=== PATIENT | male | born 1945 | race Caucasian/White ===

== ENCOUNTER 2020-01-04 17:41 | Emergency (ER) | payer MEDICARE, SELFPAY ==
[2020-01-04 17:51] VITALS: BP 158/60; PULSE 56; RESP 18; TEMP 36.9; O2SAT 99
--- NOTE | 2020-01-04 18:01 | ED.DIZZY ---
HPI - Dizziness General Chief Complaint: Dizziness Stated Complaint: dizziness,weakness Time Seen by Provider: 01/04/20 18:01 Source: patient Mode of arrival: ambulatory Limitations: no limitations History of Present Illness HPI Narrative: Jerry Chappell is a 74 yo male with PMH of a fib and high cholesterol, here became dizzy while cooking dinner. States he has problems staying hydrated as he does not require. Patient is on a diuretic as well as verapamil has appoint with kidney specialist because his kidneys function has decreased Related Data Home Medications Medication Instructions Recorded Confirmed vit C 250 mg-E 200 unit-zinc 40 1 tablet PO BID 08/22/19 01/04/20 mg-copper 1 dx-hojayl-fkkhhm capsule Allergies Allergy/AdvReac Type Severity Reaction Status Date / Time No Known Allergies Allergy Unverified 08/22/19 13:12 Review of Systems Review of Systems: Narrative: CONSTITUTIONAL: Denies fever, chills, sweats. EYES: Denies visual changes, redness, discharge. ENT: Denies rhinorrhea, congestion, sore throat, otalgia. CARDIOVASCULAR: Denies chest pain, palpitations, edema. RESPIRATORY: Denies dyspnea, wheezing, cough GASTROINTESTINAL: Denies abdominal pain, nausea, vomiting, diarrhea. GENITOURINARY: Denies dysuria, hematuria, abnormal discharge SKIN: Denies rash or itching. NEUROLOGIC: Denies numbness, or focal weakness. Occasional dizziness PSYCHIATRIC: Denies anxiety or depression. 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 There is no relevant family history pertinent to the presenting complaint. Exam Narrative: Exam Narrative: GENERAL: This is a well-nourished, well-developed patient, in no distress. HEAD: normocephalic, atraumatic. EYES: PERRL. Sclera clear/white. Vision is grossly intact. EARS: External ears normal, Hearing grossly intact. NOSE: External nose normal without nasal discharge, nares without redness, no rhinorrhea. THROAT: Mucous membranes moist, NECK: Neck supple, CARDIOVASCULAR: Regular rate and rhythm without murmurs, gallops, or rubs. RESPIRATORY: Clear to auscultation. Breath sounds equal bilaterally. No wheezes, rales, or rhonchi. GASTROINTESTINAL: Abdomen soft, SKIN: warm, intact with no suspicious lesions or rash, good texture and turgor. NEURO: awake, alert, and oriented to person, place and time. There were no obvious focal neurologic abnormalities. Steady gait EXTREMITIES: Normal range of motion. BACK: Nontender without deformity Course Course Emergency Course: Discussed quantity of water that he should be drinking a day and methods for increasing oral intake. Patient is also on diuretic which causes dehydration Follow-up with PCP; if dizziness continues will go to ER for reevaluation Vital Signs Vital signs: Vital Signs Temperature 98.5 F 01/04/20 17:51 Pulse Rate 56 L 01/03
== END 2020-01-04 18:15 | disposition home or self-care (01) ==
PROVIDERS: Emergency Provider Nurse Practitioner
DX: E86.0 Dehydration (principal); I48.91 Unspecified atrial fibrillation; E78.00 Pure hypercholesterolemia, unspecified; I12.9 Hypertensive chronic kidney disease with stage 1 through stage 4 chronic kidney disease, or unspecified chronic kidney disease; N18.3 Chronic kidney disease, stage 3 (moderate); K21.9 Gastro-esophageal reflux disease without esophagitis; E78.5 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, unspecified; G47.33 Obstructive sleep apnea (adult) (pediatric); E55.9 Vitamin D deficiency, unspecified
CPT/HCPCS: 99211; G0463

== ENCOUNTER 2020-01-17 22:32 | Inpatient (IN) | payer MEDICARE, SELFPAY ==
--- NOTE | ~2020-01-17 | XR_ITS ---
EXAMINATION: XR chest 1V portable DATE: 01/22/2020 14:43 INDICATION: Status post pacemaker insertion TECHNIQUE: frontal view of the chest was obtained. COMPARISON: Chest radiograph dated 01/17/2020 FINDINGS: Interval placement of a dual-lead cardiac pacemaker with pacemaker device projects over the lateral l eft upper lung zone and with distal lead tips project over the expected locations of the right atrial appendage and right ventricular outflow tract. The lungs remain clear with no focal airspace opaciti es, pulmonary edema, pleural effusion or pneumothorax. The cardiomediastinal silhouette is normal. IMPRESSION: 1. Dual-lead cardiac pacemaker with lead tips at the right atrial appendage and right ventricular out flow tract. 2. No pneumothorax or other acute cardiopulmonary disease. Reviewed, dictated and finalized at location A. IMPRESSION: 1. Dual-lead cardiac pacemaker with lead tips at the right atrial appendage and right ventricular outflow tract. 2. No pneumothorax or other acute cardiopulmonary disease.
--- NOTE | ~2020-01-17 | CT_ITS ---
EXAMINATION: CTA brain carotid DATE: 01/18/2020 16:45 INDICATION: Dizziness. TECHNIQUE: Computed tomographic angiography (CTA) of the head was performed without and with 100 mL O mnipaque-350 intravenous contrast. CTA of the neck was performed with intravenous contrast. Automated exposure control and iterative reconstruction technique were employed. The dose-length product was 1 625.48 mGy-cm. Maximum intensity projection and volume rendered 3D-reconstructions were created by breann e technologist on a separate workstation. COMPARISON: Brain MRI 01/18/2020, head CT 01/16 620 FINDINGS: HEAD CTA: There is an old infarct in left frontotemporoparietal region. There is no intracranial hemo rrhage, acute infarction, or abnormal intracranial mass lesion. The ventricles are normal in size. Th ere are likely changes of ocular lens replacement surgeries. The paranasal sinuses are clear. The mas toid air cells are normal. Right vertebral artery is dominant. There is mild stenosis of distal right vertebral artery. There is no significant stenosis of basilar artery or the posterior cerebral arter ies. There is mild stenosis of intracranial internal carotid internal carotid artery. There is total occlusion of intracranial left internal carotid artery. There is reconstitution of flow in left inter nal carotid artery in the ophthalmic segment. There is no significant stenosis of the anterior or mid dle cerebral arteries. Anterior communicating artery is normal. The posterior communicating arteries are normal. There is no aneurysm. NECK CTA: There are changes of left hemithyroidectomy. There is an 8 mm nodule in right thyroid lobe, likely not clinically significant. There are no pathologically enlarged lymph nodes. There is mild s tenosis of right vertebral artery. There is plaque in proximal right internal carotid artery. There i s 51% stenosis of the proximal right internal carotid artery relative to normal distal artery lumen d iameter (NASCET criteria). 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 There i s severe cervical spondylosis. IMPRESSION: 1. 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 2. 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 3. 51% stenosis of the proximal right internal carotid artery relative to normal distal artery lumen diameter (NASCET criteria). Reviewed, dictated and finalized at location A. IMPRESSION: 1. 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 2. 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 3. 51% stenosis of the proximal right internal carotid artery relative to oswaldo l distal artery lumen diameter (NASCET criteria).
--- NOTE | ~2020-01-17 | XR_ITS ---
EXAMINATION: XR chest 2V 01/23/2020 09:42 INDICATION: Post pacemaker insertion PROCEDURE: 2 view chest COMPARISON: 01/22/2020 FINDINGS: The lungs are clear. The cardiomediastinal silhouette is within normal limits. There are no pleural effusions. There is no pneumothorax suspected. Stable position to dual-lead cardiac pace maker. Lead positions unchanged in the right atrial appendage and right ventricular outflow tract. IMPRESSION: 1: NO ACUTE CARDIOPULMONARY DISEASE. Reviewed, dictated and finalized at location B.
--- NOTE | ~2020-01-17 | XR_ITS ---
EXAMINATION: XR chest 1V portable 01/17/2020 22:54 INDICATION: Dizziness. Nausea. PROCEDURE: AP portable chest COMPARISON: 11/11/2003 FINDINGS: The lungs are clear. The cardiomediastinal silhouette is within normal limits. There are no pleural effusions. There is no pneumothorax suspected. 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 IMPRESSION: 1: NO ACUTE CARDIOPULMONARY DISEASE. Reviewed, dictated and finalized at location A.
--- NOTE | ~2020-01-17 | CT_ITS ---
EXAMINATION: CT brain wo con DATE: 01/17/2020 22:51 INDICATION: Increasing weakness for 2 weeks. Dizziness. TECHNIQUE: Computed tomography (CT) of the head was performed without intravenous contrast. The dose- length product was 605.33 mGy-cm. The mA was adjusted according to patient size. Iterative reconstruc tion technique was employed. COMPARISON: None FINDINGS: There is a geographic area of hypodensity in the left parietal lobe, consistent with infarc tion which is most likely chronic, although a subacute component cannot be excluded. Recommend correl ation with MRI. No mass effect or intracranial hemorrhage. No ventriculomegaly or midline shift. Basi lar cisterns are patent. There is intracranial atherosclerosis. Midline sagittal images are unremarka ble. IMPRESSION: 1. Geographic hypodensity of the left parietal lobe, consistent with infarction, most likely chronic, although a subacute component cannot be excluded. Recommend correlation with MRI. Reviewed, dictated and finalized at location A. IMPRESSION: 1. Geographic hypodensity of the left parietal lobe, consistent with infarction , most likely chronic, although a subacute component cannot be excluded. Recomm end correlation with MRI.
--- NOTE | ~2020-01-17 | MR_ITS ---
EXAMINATION: MR brain/brain stem wo con DATE: 01/18/2020 12:14 INDICATION: Dizziness. TECHNIQUE: Magnetic resonance imaging (MRI) of the brain and brainstem was performed without intraven ous contrast. Sequences included sagittal and axial T1-weighted FSE, axial diffusion-weighted FS EPI, axial T2*-weighted GRE, axial T2-weighted FLAIR Propeller, and axial T2-weighted Propeller. Apparent diffusion coefficient (ADC) maps were created. COMPARISON: Head CT 01/17/2020 FINDINGS: There is an old infarct in left frontoparietal region. There are scattered areas of nonspec ific increased T2-weighted signal intensity in the cerebral white matter and germaine, which is within no rmal limits for the patient's age. There is no intracranial hemorrhage, acute infarction, or abnormal intracranial mass lesion. The ventricles are normal in size. The paranasal sinuses are clear. There are likely changes of ocular lens replacement surgeries. The mastoid air cells are normal. There is a flow void in the left internal carotid artery. IMPRESSION: 1. Old infarct in left frontoparietal region. 2. Lack of flow void in the left internal carotid artery which may be seen with total occlusion or sl ow flow. Reviewed, dictated and finalized at location A. IMPRESSION: 1. Old infarct in left frontoparietal region. 2. Lack of flow void in the left internal carotid artery which may be seen with total occlusion or slow flow.
[2020-01-17 22:35] VITALS: BP 193/59; PULSE 65; RESP 16; TEMP 36.8; O2SAT 99
--- NOTE | 2020-01-17 22:41 | ECG_ITS ---
Measurements Intervals [place] Rate: 51 P: [place]: 0 QRS: -22 QRSD: 100 T: 27 QT: 471 QTc: 436 Interpretive Statements SINUS RHYTHM WITH COMPLETE HEART BLOCK JUNCTIONAL ESCAPE RHYTHM DELAYED PRECORDIAL R/S TRANSITION BASELINE ARTIFACT- I, III, AVR, AVL, AVF, V1 ABNORMAL ECG Electronically Signed On 01-18-2020 7:23:10 CDT by Naman Dee D.O.
--- NOTE | 2020-01-17 22:41 | ED.GENADULT ---
HPI - General Adult General Chief complaint: Weakness Stated complaint: weakness Source: RN notes reviewed History of Present Illness HPI narrative: Patient presents emergency department from home via EMS for weakness. Patient states symptoms been progressively worsening over the past 2 weeks. States that he has been feeling generally weak and notes over the past 2 days has been feeling dizzy when he gets up. He states he is able to get up and ambulate in his house he denies any current pain. He denies any recent illness. Denies any fevers or chills chest pain shortness of breath abdominal pain nausea vomiting diarrhea numbness or tingling in extremities or any other symptoms Related Data Home Medications Medication Instructions Recorded Confirmed vit C 250 mg-E 200 unit-zinc 40 1 tablet PO BID 08/22/19 01/04/20 mg-copper 1 wv-ehguek-vpkpum capsule Allergies Allergy/AdvReac Type Severity Reaction Status Date / Time No Known Allergies Allergy Unverified 08/22/19 13:12 Review of Systems Review of Systems: Narrative: Gen.: Denies fevers or chills Eyes: Denies eye pain or visual change ENT: Denies congestion Respiratory: Denies shortness of breath or cough CV: Denies chest pain or palpitations GI: Denies abdominal pain nausea, emesis or diarrhea reports frequent urination Musculoskeletal: Denies back pain or muscle pain Neuro: Denies numbness, tingling, reports weakness and dizziness Skin: Denies rash Except as documented, all other systems reviewed and negative [facility] Past Medical History Medical History CKD (chronic kidney disease) stage 3, GFR 30-59 ml/min Elevated lipids Encounter for routine adult health examination Encounter for routine adult health examination without abnormal findings Environmental allergies Essential (primary) hypertension GERD without esophagitis 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 LDL goal <100 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 ÁNGEL (obstructive sleep apnea) Second and third degree dee on arm and face Vitamin D deficiency Social History Social History Smoking status: Never smoker Second hand tobacco smoke exposure: No Alcohol intake: former Substance use: never Substance use type: does not use Gender identity (if verbalized by the patient): Male Exam Narrative: Exam Narrative: APPEARANCE: No acute distress, nontoxic, resting in bed HEENT: Normocephalic, atraumatic, OMM, EYES: PERRL, EOMI RESPIRATORY: No respiratory distress, clear to auscultation bilaterally with no rhonchi wheezing or rales CARDIOVASCULAR: RRR s murmur ABDOMINAL: Soft, nontender, nondistended MUSCULOSKELETAL: Moves all extremities. No clubbing, cyanosis or edema. NEURO: A and O ?3, following commands, speech normal, no facial droop,muscle strength 5 out of 5 bilateral upper and lower extremities SKIN:: Warm, dry. Normal Color PSYCHIATRIC: Normal affect/mood Course Course Emergency Course: Discussed with Dr. hung presentation work-up. Discussed third-degree heart block. Agrees with consult at this time Discussed with Dr. Mcmullen presentation work-up. Agrees with admission at this time we did discuss CT scan of the head and will have further inpatient evaluation Discussed with patient and family results of workup and diagnosis. Discussed need for admission. Patient and family understand and agree to current treatment plan Vital Signs Vital signs: Vital Signs Temperature 98.3 F 01/17/20 22:35 Pulse Rate 65 01/17/20 22:35 Respiratory Rate 16 01/17/20 22:35 Blood Pressure 193/59 H 01/17/20 22:35 Pulse Oximetry 99 01/17/20 22:35 Temperature 98.3 F 01/17/20 22:35 Pulse Rate 59 L 01/17/20 23:17 Respiratory Rate 16 01/17/20 22:35 Blood Pressure 172/77 H 01/17/20 23:17 Pulse Oximetry 99 01/17/20 22:35 Medical Decision Making Vital Signs Vital Signs: Vital Signs Te
[2020-01-17 23:15] VITALS: BP 158/72; BP 165/56; PULSE 62; PULSE 77
[2020-01-17 23:17] VITALS: BP 172/77; PULSE 59
[2020-01-17 23:19] LABS: Basophils Absolute Auto 0.1 K/mm3 (0.0-0.1); Basophils Percent Auto 0.5 % (0.2-1.2); Eosinophils Absolute Auto 0.2 K/mm3 (0-0.3); Hematocrit 43.7 % (42.0-52.0); Hemoglobin 15.3 g/dL (14.0-18.0); Immature Granulocyte Absolute 0.04 K/mm3 (0.00-0.031); Immature Granulocyte Percent A 0.4 % (0-0.5); Lymphocytes Absolute Auto 2.57 K/mm3 (0.9-3.2); Lymphocytes Percent Auto 23.1 % (18.3-44.2); Mean Corpuscular Hemoglobin 30.7 pg (26-34); Mean Corpuscular Volume 87.6 fl (80-100); Mean Platelet Volume 11.3 fl (7.4-10.4); Monocytes Percent Auto 8.9 % (2.6-8.5); Neutrophils Absolute Auto 7.2 K/mm3 (1.3-6.7); Neutrophils Percent Auto 65.1 % (45.5-73.1); Platelet Count Result 224 k/mm3 (150-375); Red Blood Count 4.99 M/mm3 (4.6-6.20); Red Cell Distribution Width 12.9 % (11.5-14.5); White Blood Count 11.1 K/mm3 (4.5-10.0)
[2020-01-17] MEDS: SODIUM CHLORIDE 0.9% IV 1,000 ML 999 ML IV CONT (23:21)
[2020-01-17 23:30] VITALS: BP 141/101; PULSE 49; RESP 17; O2SAT 99
[2020-01-17 23:32] LABS: Alanine Aminotransferase 26 U/L (4-50); Albumin Level 4.3 g/dL (3.5-5.1); Alkaline Phosphatase 101 U/L (38-126); Aspartate Amino Transferase 28 U/L (17-59); Bilirubin,Total 0.6 mg/dL (0.2-1.3); Blood Urea Nitrogen 28 mg/dL (9-20); Carbon Dioxide 26 mmol/L (22-30); Chloride 101 mmol/L (98-107); Estimated CRCL calculation 37 ml/min; Estimated Glomerular Filt Rate 43; Glucose 101 mg/dL (75-110); INR 1.1; Partial Thromboplastin Time 26.4 SECONDS (22.3-36.8); Potassium 3.9 mmol/L (3.4-5.0); Prothrombin Time 13.4 Seconds (11.1-14.7); Sodium 138 mmol/L (137-145)
[2020-01-17 23:46] LABS: Troponin I 0.019 ng/mL (0.000-0.034)
[2020-01-18] VITALS (22 sets, daily range): BP systolic 117–197; BP diastolic 44–65; PULSE 33–82; RESP 15–22; TEMP 36.2–36.9; O2SAT 98–100; BMI 25.8
--- NOTE | 2020-01-18 | ECHO_ITS ---
Patient Info Name: Jerry Chappell Age: 74 years : 1945 Gender: Male Ht: 69 in Wt: 175 lbs BSA: 1.98 m2 HR: 40 bpm BP: 197 / 54 mmHg Heart Rhythm: Bradycardia Technical Quality: Good Exam Date: 01/18/2020 9:26 AM Exam Location: [facility] Pulmonary Patient Status: Inpatient Admit Date: 01/18/2020 Staff Ordering Physician: Saida Mcmullen DO Lpn Cma: Martín Eng RDCS Attending Provider: Krystin Sorenson PA-C Referring Physician: Kemi HAQUE; Exam Type: CA echo doppler color flow Study Info Indications I44.2 - Atrioventricular block, complete Complete two-dimensional, color flow and Doppler transthoracic echocardiogram is performed. Strain analysis performed. History/Risk Factors Complete Heart Block; HTN, CKD3. Summary 1. Left ventricular chamber dimension is mildly enlarged. 2. Left ventricular systolic function is hyperdynamic, estimated at >70%. 3. There is moderately increased left ventricular wall thickness. 4. The left ventricular diastolic function is grade I diastolic dysfunction. 5. E/e' 15 is elevated. 6. Global longitudinal strain is normal at -23.1%. 7. Left atrial chamber dimension is mildly enlarged. 8. Right atrial chamber dimension is mildly enlarged. 9. There is mild aortic valve sclerosis. 10. The mitral valve has moderately calcified annulus. 11. There is mild to moderate mitral valve regurgitation. Left Ventricle E/e' 15 is elevated. Global longitudinal strain is normal at -23.1%. Left ventricular chamber dimension is mildly enlarged. Left ventricular systolic function is hyperdynamic, estimated at >70%. There is moderately increased left ventricular wall thickness. The left ventricular diastolic function is grade I diastolic dysfunction. Right Ventricle Right ventricular chamber dimension is normal. Right ventricular systolic function is normal. Left Atria Left atrial chamber dimension is mildly enlarged. Right Atria Right atrial chamber dimension is mildly enlarged. Aortic Valve The aortic valve is trileaflet. There is mild aortic valve sclerosis. There is no aortic valve stenosis. There is no aortic valve regurgitation. Pulmonic Valve There is no pulmonic regurgitation. Mitral Valve The mitral valve has moderately calcified annulus. There is no mitral valve stenosis. There is mild to moderate mitral valve regurgitation. Tricuspid Valve There is no tricuspid valve regurgitation. Pericardium/Pleural There is no pericardial effusion. Aorta The aortic root size at the sinus of Valsalva is normal. Left Ventricular Outflow Tract Name Value Normal LVOT 2D LVOT Diameter 1.9 cm LVOT Doppler LVOT Peak Gradient 11 mmHg LVOT Mean Gradient 5 mmHg LVOT VTI 44 cm LVOT VTI/AV VTI Ratio 0.8 LVOT Stroke Volume 122 ml LVOT CO 4.8 l/min LVOT CI 2.5 l/min/m2 Mitral Valve
[2020-01-18 00:08] LABS: Add Urine Microscopic? YES; Appearance Urine Clear (Clear); Bilirubin Urine Negative (Negative); Blood Urine Negative (Negative); Color Urine Straw (Yellow); Glucose Urine UA Negative (Negative); Ketones Urine Negative (Negative); Leukocyte Esterase Ur Negative LEU/UL (Negative); Nitrate Urine Negative (Negative); Protein Urine Negative (Negative); RBC Urine 0-2 /hpf (0-2); Specific Grav Ur 1.012 (1.001-1.035); Urobilinogen Urine Negative mg/dL (<2.0)
[2020-01-18] MEDS: ASPIRIN 81 MG CHEWABLE TABLET 324 MG PO (01:02)
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
[2020-01-18 03:08] LABS: Troponin I 0.023 ng/mL (0.000-0.034)
--- NOTE | 2020-01-18 03:47 | ADMGEN ---
This patient, Jerry Chappell Darlene, was admitted to IMU Room 206-01. Patient/family oriented to hospital policies and general routines including ID bracelet, bed and alarms, visiting hours, pain management, procedures, bathroom and other care routines, personal items, smoking policy, room service/diet, and visiting hours. Valuables list has been completed. Information on how to activate the Rapid Response Team has been discussed. Patient/Family are encouraged to report perceived risks to care and to ask questions if they do not understand what they are told or what they should do.
[2020-01-18 05:31] LABS: Troponin I 0.026 ng/mL (0.000-0.034)
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
[2020-01-18] MEDS: MONTELUKAST SODIUM 10 MG TABLET PO (08:44)
[2020-01-18] MEDS: OPTI-GEN TAB 1 TABLET PO ×2 (08:44→17:16)
[2020-01-18] MEDS: hydroCHLOROthiazide 25 MG TABLET PO (08:44)
[2020-01-18] MEDS: lisinopriL 20 MG TABLET PO (08:44)
[2020-01-18] MEDS: hydrALAZINE HCL 50 MG TABLET PO ×3 (09:00→17:16)
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
[2020-01-18] MEDS: ASPIRIN 81 MG ENTERIC TABLET PO (17:16)
[2020-01-18] MEDS: ATORVASTATIN 40 MG TABLET PO (17:16)
[2020-01-18] MEDS: ACETAMINOPHEN 325 MG TABLET 650 MG PO (22:12)
[2020-01-19] VITALS (15 sets, daily range): BP systolic 117–147; BP diastolic 51–63; PULSE 33–81; RESP 18–22; TEMP 36.1–36.8; O2SAT 98–100
[2020-01-19 04:48] LABS: Basophils Absolute Auto 0.1 K/mm3 (0.0-0.1); Basophils Percent Auto 0.6 % (0.2-1.2); Eosinophils Absolute Auto 0.3 K/mm3 (0-0.3); Eosinophils Percent Auto 3.2 % (0-4.4); Hematocrit 43.8 % (42.0-52.0); Immature Granulocyte Absolute 0.04 K/mm3 (0.00-0.031); Immature Granulocyte Percent A 0.4 % (0-0.5); Lymphocytes Absolute Auto 1.88 K/mm3 (0.9-3.2); Lymphocytes Percent Auto 17.5 % (18.3-44.2); Mean Corpuscular HGB Conc 34.2 g/dl (32-36); Mean Corpuscular Hemoglobin 29.8 pg (26-34); Mean Corpuscular Volume 86.9 fl (80-100); Mean Platelet Volume 11.5 fl (7.4-10.4); Monocytes Absolute Auto 0.9 K/mm3 (0.1-0.6); Monocytes Percent Auto 7.9 % (2.6-8.5); Neutrophils Absolute Auto 7.6 K/mm3 (1.3-6.7); Neutrophils Percent Auto 70.4 % (45.5-73.1); Platelet Count Result 215 k/mm3 (150-375); Red Blood Count 5.04 M/mm3 (4.6-6.20); Red Cell Distribution Width 13.1 % (11.5-14.5); White Blood Count 10.8 K/mm3 (4.5-10.0)
[2020-01-19 05:09] LABS: Blood Urea Nitrogen 24 mg/dL (9-20); Calcium 9.1 mg/dL (8.4-10.2); Carbon Dioxide 20 mmol/L (22-30); Chloride 107 mmol/L (98-107); Estimated CRCL calculation 42 ml/min; Estimated Glomerular Filt Rate 50; Glucose 96 mg/dL (75-110); Potassium 3.8 mmol/L (3.4-5.0); Sodium 135 mmol/L (137-145)
--- NOTE | 2020-01-19 06:35 | ECG_ITS ---
Measurements Intervals [place] Rate: 41 P: DE: 0 QRS: -25 QRSD: 99 T: 25 QT: 536 QTc: 444 Interpretive Statements SINUS RHYTHM WITH COMPLETE HEART BLOCK JUNCTIONAL ESCAPE RHYTHM DELAYED PRECORDIAL R/S TRANSITION BASELINE ARTIFACT- II, III, AVF ABNORMAL ECG Electronically Signed On 01-19-2020 12:02:10 CDT by Naman Dee D.O.
[2020-01-19] MEDS: lisinopriL 20 MG TABLET PO (09:44)
[2020-01-19] MEDS: hydrALAZINE HCL 50 MG TABLET PO ×3 (09:44→18:23)
[2020-01-19] MEDS: MONTELUKAST SODIUM 10 MG TABLET PO (09:44)
[2020-01-19] MEDS: OPTI-GEN TAB 1 TABLET PO ×2 (09:44→18:22)
[2020-01-19] MEDS: ASPIRIN 81 MG ENTERIC TABLET PO (09:45)
[2020-01-19] MEDS: hydroCHLOROthiazide 25 MG TABLET PO (09:45)
--- NOTE | 2020-01-19 11:37 | PM.PNCARD ---
Progress Note: A&P Assessment and Plan (1) Third degree heart block: Code(s): I44.2 - Atrioventricular block, complete Status: Acute Assessment and Plan: Half life of Verapamil up to 12 hours. Will monitor him for recovery of heart block on telemetry as he is asymptomatic at rest, and BP is stable. If heart block does not recover by this weekend, will plan for pacemaker on Tuesday and he is agreeable to this. (2) CKD (chronic kidney disease) stage 3, GFR 30-59 ml/min: Code(s): N18.3 - Chronic kidney disease, stage 3 (moderate) Status: Acute (3) Essential (primary) hypertension: Code(s): I10 - Essential (primary) hypertension Status: Acute Assessment and Plan: Stable. Avoid AV silvio blocking agents. (4) 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 LDL goal <100: Code(s): E78.5 - 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, unspecified Status: Acute Subjective Date/time seen: 01/19/20 11:37 Reports weakness. No dizziness, chest pain or sob. Exam Const: General: comfortable and no acute distress Neck: Neck: no JVD Carotids: no bruits Resp: Auscultation: clear to auscultation bilaterally, no crackles, no rales, no rhonchi and no wheezes Cardio: Rate: bradycardic Rhythm: regular rhythm GI: Inspection: non-distended Neuro: Speech: normal speech Extrem: Right lower extremity: no edema Left lower extremity: no edema Objective Data Vital Signs Vital Signs: Vital Signs - 24 hr 01/18/20 12:00 01/18/20 12:12 01/18/20 14:07 Temperature 98.4 F Pulse Rate 48 L 50 L 56 L Respiratory Rate 18 Blood Pressure 155/50 H Pulse Oximetry 99 01/18/20 16:00 01/18/20 18:00 01/18/20 19:36 Temperature 98.1 F 98.4 F Pulse Rate 44 L 68 65 Respiratory Rate 18 20 Blood Pressure 154/59 H 142/49 H Pulse Oximetry 98 98 01/18/20 20:00 01/18/20 21:57 01/18/20 23:39 Temperature 98.1 F Pulse Rate 50 L 41 L 43 L Respiratory Rate 18 Blood Pressure 117/52 L Pulse Oximetry 99 01/19/20 00:00 01/19/20 02:00 01/19/20 03:39 Temperature 98.3 F Pulse Rate 38 L 47 L 51 L Respiratory Rate 20 Blood Pressure 143/63 H Pulse Oximetry 98 01/19/20 04:00 01/19/20 06:00 01/19/20 08:00 Temperature 97.1 F L Pulse Rate 38 L 40 L 54 L Respiratory Rate 20 Blood Pressure 147/58 H Pulse Oximetry 100 Intake/Output Intake/Output: Intake & Output 01/16/20 01/17/20 01/18/20 01/19/20 23:59 23:59 23:59 23:59 Intake Total 2380 360 Output Total 1825 525 Balance 555 -165 Meds/Results Medications: Active Medications Generic Name Dose Route Start Last Admin Trade Name Freq PRN Reason Stop Dose Admin Acetaminophen 650 mg 01/18/20 22:04 01/18/20 22:12 Tylenol Tablet PO 650 mg Q6H PRN Administration Mild Pain (1-3) or Fever Aspirin 81 mg 01/18/20 16:50 01/19/20 09:45 Aspirin Ec PO 81 mg QAM DUANE Administration Atorvastatin Calcium 40 mg 01/18/20 18:00 01/18/20 17:16 Lipitor PO 40 mg QPM DUANE Administration Docusate Sodium 100 mg 01/18/20 12:39 Colace Capsule PO Q12H PRN Constipation Hydralazine HCl 10 mg 01/18/20 06:05 Apresoline Hcl Inj IV PUSH Q4H PRN SBP greater than 180 Hydralazine HCl 50 mg 01/18/20 09:00 01/19/20 09:44 Apresoline Tablet PO 50 mg TID DUANE Administration Hydrochlorothiazide 25 mg 01/18/20 09:00 01/19/20 09:45 Hydrochlorothiazide PO 25 mg DAILY DUANE Administration Lisinopril 20 mg 01/18/20 09:00 01/19/20 09:44 Prinivil PO 20 mg QAM DUANE Administration Montelukast Sodium 10 mg 01/18/20 09:00 01/19/20 09:44 Singulair PO 10 mg DAILY DUANE Administration Multivitamins/Minerals 1 tablet 01/18/20 09:00 01/19/20 09:44 Ocuvite PO 1 tablet BID DUANE Administration Polyethylene Glycol 17 gm 01/18/20 12:39 Miralax PO QAM PRN Constipation Radiology Results: ITS Impressions Head CT 01/17/20 22:52 IMPRESSION: 1. Ge
--- NOTE | 2020-01-19 13:49 | PM.IMPN ---
Progress Note: A&P Assessment and Plan (1) Third degree heart block: Code(s): I44.2 - Atrioventricular block, complete Status: Acute Assessment and Plan: The patient was found to be in a third-degree heart block upon arrival to the emergency department. The patient has weakness but is otherwise asymptomatic. Dr. Dee from cardiology was consulted from the ER who evaluated the patient and recommended discontinuing his verapamil and monitoring the patient over the weekend to see if he will get out of the heart block on his own. If he continues to stay on a third-degree heart block then he will need a pacemaker on Tuesday. Echocardiogram showed Left ventricular chamber dimension is mildly enlarged Left ventricular systolic function is hyperdynamic, estimated at >70%. There is moderately increased left ventricular wall thickness. The left ventricular diastolic function is grade I diastolic dysfunction. Patient continues to be in third-degree heart block and we are monitoring him to see if he can convert on his own oral she will have a pacemaker on Tuesday. Otherwise he is feeling well without any new complaints. Will continue monitoring the patient on telemetry. Cardiology's input is greatly appreciated (2) Occlusion of left internal carotid artery: Code(s): I65.22 - Occlusion and stenosis of left carotid artery Status: Acute Assessment and Plan: Due to the patient's weakness a CT scan of his head was ordered which showed Old infarct versus subacute infarct. 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 Lack of flow void in the left internal carotid artery which may be seen with total occlusion or slow flow. CTA brain and carotid was ordered and showed that he does have a total occlusion of the left internal carotid artery. Patient was not on any anticoagulation or anti-platelet medications at home. Will start the patient on aspirin 81 mg daily. Will work on blood pressure control. Will have him follow-up with primary care provider and he may need a referral to a vascular surgeon as an outpatient. Most the time with complete occlusions there is nothing they can do. Will continue monitoring patient's symptoms during hospitalization (3) Uncontrolled hypertension: Code(s): I10 - Essential (primary) hypertension Status: Acute Assessment and Plan: Dr. Dee made adjustments to his home medications for better blood pressure control. Dr. Dee started him on hydralazine 50 mg t.i.d. and lisinopril 20 mg daily. Continued his hydrochlorothiazide. Blood pressure this morning was 147/53. Improved with new medications. Balance Sheet Analyst input is greatly appreciated. (4) Weakness: Code(s): R53.1 - Weakness Status: Acute Assessment and Plan: Most likely secondary to his 3rd degree heart block and bradycardic rhythm. Will continue monitoring on telemetry. The nurse states he has been up and walking around without any issues and he does not appear to be off balance. No need for physical and occupational therapy at this time. Time Spent With Patient Time with patient: 25 - 35 minutes Subjective Date/time seen: 01/19/20 13:49 Interval history: Date of service 01/19/2020: The patient states he is feeling better today and does not feel as weak and fatigued when he is sitting in bed. He does feel a little bit worse when he is up to go to the bathroom. He is eating and drinking without any issues. He slept well last night without any issues. Otherwise denies any other focal weakness, issues with swallowing, walking or speech. He denies any palpitations, headaches, vision changes, lightheadedness, dizziness, chest pain, shortness of breath, cough, fever, chills, nausea, vomiting, a
[2020-01-19] MEDS: ATORVASTATIN 40 MG TABLET PO (18:23)
[2020-01-20] VITALS (14 sets, daily range): BP systolic 109–143; BP diastolic 47–69; PULSE 31–71; RESP 16–22; TEMP 35.7–36.7; O2SAT 98–100
[2020-01-20 05:01] LABS: Hematocrit 46.2 % (42.0-52.0); Mean Corpuscular HGB Conc 34.6 g/dl (32-36); Mean Corpuscular Hemoglobin 30.5 pg (26-34); Mean Corpuscular Volume 88.2 fl (80-100); Mean Platelet Volume 11.8 fl (7.4-10.4); Platelet Count Result 227 k/mm3 (150-375); Red Blood Count 5.24 M/mm3 (4.6-6.20); Red Cell Distribution Width 13.4 % (11.5-14.5); White Blood Count 12.8 K/mm3 (4.5-10.0)
[2020-01-20 05:13] LABS: Blood Urea Nitrogen 31 mg/dL (9-20); Calcium 9.3 mg/dL (8.4-10.2); Carbon Dioxide 23 mmol/L (22-30); Chloride 103 mmol/L (98-107); Cholesterol 131 mg/dL (0-200); Estimated CRCL calculation 40 ml/min; Estimated Glomerular Filt Rate 46; Glucose 102 mg/dL (75-110); HDL Direct 37 mg/dL; Potassium 3.7 mmol/L (3.4-5.0); Sodium 135 mmol/L (137-145); Triglycerides 117 mg/dL (<150)
[2020-01-20 05:24] LABS: LDL Cholesterol Direct 67 mg/dL
--- NOTE | 2020-01-20 08:39 | PM.IMPN ---
Progress Note: A&P Assessment and Plan (1) Third degree heart block: Code(s): I44.2 - Atrioventricular block, complete Status: Acute Assessment and Plan: The patient was found to be in a third-degree heart block upon arrival to the emergency department. The patient has weakness but is otherwise asymptomatic. Dr. Dee from cardiology was consulted from the ER who evaluated the patient and recommended discontinuing his verapamil and monitoring the patient over the weekend to see if he will get out of the heart block on his own. If he continues to stay on a third-degree heart block then he will need a pacemaker on Tuesday. Echocardiogram showed Left ventricular chamber dimension is mildly enlarged Left ventricular systolic function is hyperdynamic, estimated at >70%. There is moderately increased left ventricular wall thickness. The left ventricular diastolic function is grade I diastolic dysfunction. Patient continues to be in third-degree heart block and we are monitoring him to see if he can convert on his own oral he will have a pacemaker placed tomorrow. Otherwise he is feeling well without any new complaints. Will continue monitoring the patient on telemetry. Cardiology's input is greatly appreciated (2) Occlusion of left internal carotid artery: Code(s): I65.22 - Occlusion and stenosis of left carotid artery Status: Acute Assessment and Plan: Due to the patient's weakness a CT scan of his head was ordered which showed Old infarct versus subacute infarct. 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 Lack of flow void in the left internal carotid artery which may be seen with total occlusion or slow flow. CTA brain and carotid was ordered and showed that he does have a total occlusion of the left internal carotid artery. Patient was not on any anticoagulation or anti-platelet medications at home. Will start the patient on aspirin 81 mg daily. Will work on blood pressure control. Will have him follow-up with primary care provider and he may need a referral to a vascular surgeon as an outpatient. Most the time with complete occlusions there is nothing they can do. Will continue monitoring patient's symptoms during hospitalization (3) Uncontrolled hypertension: Code(s): I10 - Essential (primary) hypertension Status: Acute Assessment and Plan: Dr. Dee made adjustments to his home medications for better blood pressure control. Dr. Dee started him on hydralazine 50 mg t.i.d. and lisinopril 20 mg daily. Continued his hydrochlorothiazide. Blood pressure this morning was 143/69. Improved with new medications. Account Associate input is greatly appreciated. (4) Weakness: Code(s): R53.1 - Weakness Status: Acute Assessment and Plan: Most likely secondary to his 3rd degree heart block and bradycardic rhythm. Will continue monitoring on telemetry. The nurse states he has been up and walking around without any issues and he does not appear to be off balance. No need for physical and occupational therapy at this time. Time Spent With Patient Time with patient: 25 - 35 minutes Subjective Date/time seen: 01/20/20 08:39 Interval history: Date of service 01/20/2020: Patient reports feeling weak again this morning. He just has generalized weakness and reports some heaviness to his bilateral arms which is what he was having a few days ago. Denies any other concerning or worsening symptoms. He denies any palpitations, headaches, vision changes, lightheadedness, dizziness, chest pain, shortness of breath, cough, fever, chills, nausea, vomiting, abdominal pain, diarrhea, constipation, leg swelling, calf pain or any other symptoms at this time. Review of Systems Review
--- NOTE | 2020-01-20 09:22 | PM.PNCARD ---
Progress Note: A&P Assessment and Plan (1) Third degree heart block: Code(s): I44.2 - Atrioventricular block, complete Status: Acute Assessment and Plan: Half life of Verapamil up to 12 hours. Will monitor him for recovery of heart block on telemetry as he is asymptomatic at rest, and BP is stable. It does not appear heart block is recovering off Verapamil, wizach plan for pacemaker on Tuesday by [facility]CG group and he is agreeable to this. Keep NPO after midnight and will let HCG know in AM. (2) CKD (chronic kidney disease) stage 3, GFR 30-59 ml/min: Code(s): N18.3 - Chronic kidney disease, stage 3 (moderate) Status: Acute (3) Essential (primary) hypertension: Code(s): I10 - Essential (primary) hypertension Status: Acute Assessment and Plan: Stable. Avoid AV silvio blocking agents. (4) 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 LDL goal <100: Code(s): E78.5 - 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, unspecified Status: Acute Subjective Date/time seen: 01/20/20 09:22 Reports feeling weak but no dizziness in bed. Exam Const: General: comfortable and no acute distress Neck: Neck: no JVD Carotids: no bruits Resp: Auscultation: clear to auscultation bilaterally, no crackles, no rales, no rhonchi and no wheezes Cardio: Rate: bradycardic Rhythm: regular rhythm GI: Inspection: non-distended Neuro: Speech: normal speech Extrem: Right lower extremity: no edema Left lower extremity: no edema Objective Data Vital Signs Vital Signs: Vital Signs - 24 hr 01/19/20 10:00 01/19/20 12:00 01/19/20 14:00 Temperature 97.9 F Pulse Rate 45 L 33 L 59 L Respiratory Rate 22 H Blood Pressure 133/53 L Pulse Oximetry 100 01/19/20 15:53 01/19/20 16:00 01/19/20 18:00 Temperature 97 F L Pulse Rate 50 L 33 L 65 Respiratory Rate 20 Blood Pressure 142/55 H Pulse Oximetry 100 01/19/20 20:00 01/19/20 22:00 01/19/20 23:43 Temperature 98.2 F 97.0 F L Pulse Rate 46 L 43 L 53 L Respiratory Rate 18 18 Blood Pressure 137/51 L 117/52 L Pulse Oximetry 99 100 01/20/20 00:00 01/20/20 02:00 01/20/20 03:57 Temperature 96.2 F L Pulse Rate 38 L 46 L 45 L Respiratory Rate 16 Blood Pressure 143/69 H Pulse Oximetry 98 01/20/20 04:00 01/20/20 04:03 01/20/20 06:00 Temperature 97.7 F Pulse Rate 50 L 61 31 L Respiratory Rate 20 Blood Pressure 143/69 H Pulse Oximetry 99 01/20/20 08:00 Temperature 97.9 F Pulse Rate 47 L Respiratory Rate 20 Blood Pressure 117/52 L Pulse Oximetry 100 Intake/Output Intake/Output: Intake & Output 01/17/20 01/18/20 01/19/20 01/20/20 23:59 23:59 23:59 23:59 Intake Total 2380 840 300 Output Total 1825 1100 175 Balance 555 -260 125 Meds/Results Medications: Active Medications Generic Name Dose Route Start Last Admin Trade Name Freq PRN Reason Stop Dose Admin Acetaminophen 650 mg 01/18/20 22:04 01/18/20 22:12 Tylenol Tablet PO 650 mg Q6H PRN Administration Mild Pain (1-3) or Fever Aspirin 81 mg 01/18/20 16:50 01/19/20 09:45 Aspirin Ec PO 81 mg QAM DUANE Administration Atorvastatin Calcium 40 mg 01/18/20 18:00 01/19/20 18:23 Lipitor PO 40 mg QPM DUANE Administration Docusate Sodium 100 mg 01/18/20 12:39 Colace Capsule PO Q12H PRN Constipation Hydralazine HCl 10 mg 01/18/20 06:05 Apresoline Hcl Inj IV PUSH Q4H PRN SBP greater than 180 Hydralazine HCl 50 mg 01/18/20 09:00 01/19/20 18:23 Apresoline Tablet PO 50 mg TID DUANE Administration Hydrochlorothiazide 25 mg 01/18/20 09:00 01/19/20 09:45 Hydrochlorothiazide PO 25 mg DAILY DUANE Administration Lisinopril 20 mg 01/18/20 09:00 01/19/20 09:44 Prinivil PO 20 mg QAM DUANE Administration Montelukast Sodium 10 mg 01/18/20 09:00 01/19/20 09:44 Singulair PO 10 mg DAILY DUANE Administration Multivitamins/Minerals 1 tablet 01/18/20 09:00 01/19/20 18:22 Ocuvite PO 1 table
[2020-01-20] MEDS: OPTI-GEN TAB 1 TABLET PO ×2 (10:22→17:58)
[2020-01-20] MEDS: ASPIRIN 81 MG ENTERIC TABLET PO (10:23)
[2020-01-20] MEDS: hydrALAZINE HCL 50 MG TABLET PO ×3 (10:23→17:58)
[2020-01-20] MEDS: MONTELUKAST SODIUM 10 MG TABLET PO (10:23)
[2020-01-20] MEDS: lisinopriL 20 MG TABLET PO (10:23)
[2020-01-20] MEDS: hydroCHLOROthiazide 25 MG TABLET PO (10:24)
[2020-01-20] MEDS: ATORVASTATIN 40 MG TABLET PO (17:58)
[2020-01-21] VITALS (14 sets, daily range): BP systolic 108–125; BP diastolic 43–66; PULSE 38–70; RESP 16–18; TEMP 35.8–36.6; O2SAT 98–100
[2020-01-21 04:56] LABS: Basophils Absolute Auto 0.1 K/mm3 (0.0-0.1); Basophils Percent Auto 0.4 % (0.2-1.2); Eosinophils Absolute Auto 0.5 K/mm3 (0-0.3); Eosinophils Percent Auto 4.7 % (0-4.4); Hematocrit 44.8 % (42.0-52.0); Hemoglobin 15.4 g/dL (14.0-18.0); Immature Granulocyte Absolute 0.04 K/mm3 (0.00-0.031); Immature Granulocyte Percent A 0.4 % (0-0.5); Lymphocytes Absolute Auto 1.83 K/mm3 (0.9-3.2); Lymphocytes Percent Auto 16.4 % (18.3-44.2); Mean Corpuscular HGB Conc 34.4 g/dl (32-36); Mean Corpuscular Volume 87.2 fl (80-100); Mean Platelet Volume 11.3 fl (7.4-10.4); Neutrophils Absolute Auto 7.7 K/mm3 (1.3-6.7); Neutrophils Percent Auto 69.1 % (45.5-73.1); Platelet Count Result 235 k/mm3 (150-375); Red Blood Count 5.14 M/mm3 (4.6-6.20); Red Cell Distribution Width 13.2 % (11.5-14.5); White Blood Count 11.2 K/mm3 (4.5-10.0)
[2020-01-21 05:11] LABS: Blood Urea Nitrogen 46 mg/dL (9-20); Calcium 9.3 mg/dL (8.4-10.2); Carbon Dioxide 24 mmol/L (22-30); Chloride 102 mmol/L (98-107); Estimated CRCL calculation 30 ml/min; Estimated Glomerular Filt Rate 33; Glucose 106 mg/dL (75-110); Potassium 4.1 mmol/L (3.4-5.0); Sodium 134 mmol/L (137-145)
--- NOTE | 2020-01-21 07:43 | PM.PNCARD ---
Progress Note: A&P Assessment and Plan (1) Third degree heart block: Code(s): I44.2 - Atrioventricular block, complete Status: Acute Assessment and Plan: Half life of Verapamil up to 12 hours. Will monitor him for recovery of heart block on telemetry as he is asymptomatic at rest, and BP is stable. It does not appear heart block is recovering off Verapamil, maurizio plan for pacemaker today by [facility] group and he is agreeable to this. Keep NPO until [facility] sees patient. (2) CKD (chronic kidney disease) stage 3, GFR 30-59 ml/min: Code(s): N18.3 - Chronic kidney disease, stage 3 (moderate) Status: Acute (3) Essential (primary) hypertension: Code(s): I10 - Essential (primary) hypertension Status: Acute Assessment and Plan: Stable. Avoid AV silvio blocking agents. (4) 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 LDL goal <100: Code(s): E78.5 - 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, unspecified Status: Acute Subjective Date/time seen: 01/21/20 07:43 Reports weakness. No chest pain, sob, dizziness. Exam Const: General: comfortable and no acute distress Neck: Neck: no JVD Carotids: no bruits Resp: Auscultation: clear to auscultation bilaterally, no crackles, no rales, no rhonchi and no wheezes Cardio: Rate: bradycardic Rhythm: regular rhythm GI: Inspection: non-distended Neuro: Speech: normal speech Extrem: Right lower extremity: no edema Left lower extremity: no edema Objective Data Vital Signs Vital Signs: Vital Signs - 24 hr 01/20/20 08:00 01/20/20 10:00 01/20/20 12:00 Temperature 97.9 F 97.8 F Pulse Rate 46 L 49 L 60 Respiratory Rate 20 22 H Blood Pressure 117/52 L 112/51 L Pulse Oximetry 100 100 01/20/20 14:00 01/20/20 16:00 01/20/20 18:00 Temperature 98 F Pulse Rate 61 71 69 Respiratory Rate 20 Blood Pressure 122/52 L Pulse Oximetry 99 01/20/20 20:00 01/20/20 22:00 01/21/20 00:00 Temperature 98.1 F 97.9 F Pulse Rate 58 L 58 L 47 L Respiratory Rate 18 18 Blood Pressure 109/47 L 110/54 L Pulse Oximetry 100 98 01/21/20 02:00 01/21/20 03:59 01/21/20 04:00 Temperature 97.6 F Pulse Rate 38 L 45 L 45 L Respiratory Rate 18 18 Blood Pressure 115/43 L Pulse Oximetry 98 01/21/20 06:00 Temperature Pulse Rate 64 Respiratory Rate Blood Pressure Pulse Oximetry Intake/Output Intake/Output: Intake & Output 01/18/20 01/19/20 01/20/20 01/21/20 23:59 23:59 23:59 23:59 Intake Total 2380 840 1870 0 Output Total 1825 1100 375 600 Balance 555 260 1495 -600 Meds/Results Medications: Active Medications Generic Name Dose Route Start Last Admin Trade Name Freq PRN Reason Stop Dose Admin Acetaminophen 650 mg 01/18/20 22:04 01/18/20 22:12 Tylenol Tablet PO 650 mg Q6H PRN Administration Mild Pain (1-3) or Fever Aspirin 81 mg 01/18/20 16:50 01/20/20 10:23 Aspirin Ec PO 81 mg QAM DUANE Administration Atorvastatin Calcium 40 mg 01/18/20 18:00 01/20/20 17:58 Lipitor PO 40 mg QPM DUANE Administration Docusate Sodium 100 mg 01/18/20 12:39 Colace Capsule PO Q12H PRN Constipation Hydralazine HCl 10 mg 01/18/20 06:05 Apresoline Hcl Inj IV PUSH Q4H PRN SBP greater than 180 Hydralazine HCl 50 mg 01/18/20 09:00 01/20/20 17:58 Apresoline Tablet PO 50 mg TID DUANE Administration Hydrochlorothiazide 25 mg 01/18/20 09:00 01/20/20 10:24 Hydrochlorothiazide PO 25 mg DAILY DUANE Administration Lisinopril 20 mg 01/18/20 09:00 01/20/20 10:23 Prinivil PO 20 mg QAM DUANE Administration Montelukast Sodium 10 mg 01/18/20 09:00 01/20/20 10:23 Singulair PO 10 mg DAILY DUANE Administration Multivitamins/Minerals 1 tablet 01/18/20 09:00 01/20/20 17:58 Ocuvite PO 1 tablet BID DUANE Administration Polyethylene Glycol 17 gm 01/18/20 12:39 Miralax PO QAM PRN Constipation Radiology Results: ITS Impressions Head CT 01/17/20 22:52
[2020-01-21] MEDS: hydrALAZINE HCL 50 MG TABLET PO ×3 (08:28→17:16)
[2020-01-21] MEDS: hydroCHLOROthiazide 25 MG TABLET PO (08:28)
[2020-01-21] MEDS: ASPIRIN 81 MG ENTERIC TABLET PO (08:28)
[2020-01-21] MEDS: MONTELUKAST SODIUM 10 MG TABLET PO (08:28)
[2020-01-21] MEDS: OPTI-GEN TAB 1 TABLET PO ×2 (08:28→17:17)
[2020-01-21] MEDS: lisinopriL 20 MG TABLET PO (08:29)
[2020-01-21] MEDS: SODIUM CHLORIDE 0.9% IV 1,000 ML 100 ML IV CONT ×2 (09:12→18:55)
--- NOTE | 2020-01-21 12:55 | PM.IMPN ---
Progress Note: A&P Assessment and Plan (1) Third degree heart block: Code(s): I44.2 - Atrioventricular block, complete Status: Acute Assessment and Plan: The patient was found to be in a third-degree heart block upon arrival to the emergency department. The patient has weakness but is otherwise asymptomatic. Dr. Dee from cardiology was consulted from the ER who evaluated the patient and recommended discontinuing his verapamil and monitoring the patient over the weekend to see if he will get out of the heart block on his own. Echocardiogram showed Left ventricular chamber dimension is mildly enlarged Left ventricular systolic function is hyperdynamic, estimated at >70%. There is moderately increased left ventricular wall thickness. The left ventricular diastolic function is grade I diastolic dysfunction. Patient continues to be in third-degree heart block and Dr. Dee consulted Dr. Simmons to evaluate the patient and place Pacemaker. Dr. Simmons states he will consult on him, but unsure if he can do pacemaker today vs tomorrow. Will continue monitoring the patient on telemetry. Cardiology's input is greatly appreciated (2) Occlusion of left internal carotid artery: Code(s): I65.22 - Occlusion and stenosis of left carotid artery Status: Acute Assessment and Plan: Due to the patient's weakness a CT scan of his head was ordered which showed Old infarct versus subacute infarct. 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 Lack of flow void in the left internal carotid artery which may be seen with total occlusion or slow flow. CTA brain and carotid was ordered and showed that he does have a total occlusion of the left internal carotid artery. Patient was not on any anticoagulation or anti-platelet medications at home. Will start the patient on aspirin 81 mg daily. Will work on blood pressure control. Will have him follow-up with primary care provider and he may need a referral to a vascular surgeon as an outpatient. Most the time with complete occlusions there is nothing they can do. Will continue monitoring patient's symptoms during hospitalization (3) Uncontrolled hypertension: Code(s): I10 - Essential (primary) hypertension Status: Acute Assessment and Plan: Dr. Dee made adjustments to his home medications for better blood pressure control. Dr. Dee started him on hydralazine 50 mg t.i.d. and lisinopril 20 mg daily. Continued his hydrochlorothiazide. Blood pressure this morning was 125/61. Improved with new medications. Mapping Engineer input is greatly appreciated. (4) Weakness: Code(s): R53.1 - Weakness Status: Acute Assessment and Plan: Most likely secondary to his 3rd degree heart block and bradycardic rhythm. Will continue monitoring on telemetry. The nurse states he has been up and walking around without any issues and he does not appear to be off balance. No need for physical and occupational therapy at this time. Time Spent With Patient Time with patient: 25 - 35 minutes Subjective Date/time seen: 01/21/20 12:55 Interval history: Date of service 01/21/2020: Patient reports feeling better this morning. Denies any other concerning or worsening symptoms. He denies any palpitations, headaches, vision changes, lightheadedness, dizziness, chest pain, shortness of breath, cough, fever, chills, nausea, vomiting, abdominal pain, diarrhea, constipation, leg swelling, calf pain or any other symptoms at this time. Review of Systems Review of Systems: All systems reviewed & are unremarkable except as noted in HPI and below Exam Narrative: Exam Narrative: General: 74-year-old man sitting up in bed watching TV. Appears comfortable. In no acute
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
[2020-01-21] MEDS: ATORVASTATIN 40 MG TABLET PO (17:16)
[2020-01-21] MEDS: ONDANSETRON INJ 4 MG/2 ML VIAL IV PUSH (18:08)
[2020-01-22] VITALS (24 sets, daily range): BP systolic 110–149; BP diastolic 37–80; PULSE 34–81; RESP 10–20; TEMP 36.4–36.9; O2SAT 97–100
[2020-01-22] MEDS: SODIUM CHLORIDE 0.9% IV 1,000 ML 100 ML IV CONT ×2 (04:36→17:00)
[2020-01-22 05:12] LABS: Hematocrit 42.7 % (42.0-52.0); Hemoglobin 14.6 g/dL (14.0-18.0); Mean Corpuscular HGB Conc 34.2 g/dl (32-36); Mean Corpuscular Hemoglobin 30.4 pg (26-34); Mean Corpuscular Volume 88.8 fl (80-100); Mean Platelet Volume 11.8 fl (7.4-10.4); Platelet Count Result 219 k/mm3 (150-375); Red Blood Count 4.81 M/mm3 (4.6-6.20); Red Cell Distribution Width 13.4 % (11.5-14.5); White Blood Count 10.5 K/mm3 (4.5-10.0)
[2020-01-22 05:28] LABS: Blood Urea Nitrogen 42 mg/dL (9-20); Calcium 8.5 mg/dL (8.4-10.2); Carbon Dioxide 23 mmol/L (22-30); Chloride 107 mmol/L (98-107); Estimated CRCL calculation 31 ml/min; Estimated Glomerular Filt Rate 35; Glucose 99 mg/dL (75-110); Potassium 4.2 mmol/L (3.4-5.0); Sodium 136 mmol/L (137-145)
--- NOTE | 2020-01-22 08:05 | PM.PNCARD ---
Progress Note: A&P Assessment and Plan (1) Third degree heart block: Code(s): I44.2 - Atrioventricular block, complete Status: Acute Assessment and Plan: His heart block did not recover for last 3-4 days off Verapamil. Plan for pacemaker today by [facility] group and he is agreeable to this. Keep NPO for procedure. (2) CKD (chronic kidney disease) stage 3, GFR 30-59 ml/min: Code(s): N18.3 - Chronic kidney disease, stage 3 (moderate) Status: Acute (3) Essential (primary) hypertension: Code(s): I10 - Essential (primary) hypertension Status: Acute Assessment and Plan: Stable. Avoid AV silvio blocking agents. (4) 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 LDL goal <100: Code(s): E78.5 - 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, unspecified Status: Acute Subjective Date/time seen: 01/22/20 08:05 Reports weakness. No chest pain or sob. Exam Const: General: comfortable and no acute distress Neck: Neck: no JVD Resp: Auscultation: clear to auscultation bilaterally, no crackles, no rales, no rhonchi and no wheezes Cardio: Rate: bradycardic Rhythm: abnormal rhythm GI: Inspection: non-distended Neuro: Speech: normal speech Extrem: Right lower extremity: no edema Left lower extremity: no edema Objective Data Vital Signs Vital Signs: Vital Signs - 24 hr 01/21/20 10:00 01/21/20 12:00 01/21/20 14:00 Temperature 96.9 F L Pulse Rate 47 L 40 L 64 Respiratory Rate 16 Blood Pressure 125/61 Pulse Oximetry 99 01/21/20 16:00 01/21/20 18:00 01/21/20 19:47 Temperature 96.5 F L 97.0 F L Pulse Rate 39 L 53 L 70 Respiratory Rate 16 18 Blood Pressure 120/51 L 112/50 L Pulse Oximetry 100 99 01/21/20 20:00 01/21/20 22:00 01/22/20 00:00 Temperature 98.0 F Pulse Rate 46 L 45 L 55 L Respiratory Rate 18 18 Blood Pressure 110/40 L Pulse Oximetry 99 99 01/22/20 02:00 01/22/20 04:00 01/22/20 06:00 Temperature 98.0 F Pulse Rate 63 49 L 40 L Respiratory Rate 20 Blood Pressure 127/48 L Pulse Oximetry 100 01/22/20 07:32 Temperature 98.1 F Pulse Rate 45 L Respiratory Rate 18 Blood Pressure 146/56 H Pulse Oximetry 100 Intake/Output Intake/Output: Intake & Output 01/19/20 01/20/20 01/21/20 01/22/20 23:59 23:59 23:59 23:59 Intake Total 840 1870 1300.0 1450 Output Total 8540 725 7181 1200 Balance -260 1495 225.0 250 Meds/Results Medications: Active Medications Generic Name Dose Route Start Last Admin Trade Name Freq PRN Reason Stop Dose Admin Acetaminophen 650 mg 01/18/20 22:04 01/18/20 22:12 Tylenol Tablet PO 650 mg Q6H PRN Administration Mild Pain (1-3) or Fever Aspirin 81 mg 01/18/20 16:50 01/21/20 08:28 Aspirin Ec PO 81 mg QAM DUANE Administration Atorvastatin Calcium 40 mg 01/18/20 18:00 01/21/20 17:16 Lipitor PO 40 mg QPM DUANE Administration Docusate Sodium 100 mg 01/18/20 12:39 Colace Capsule PO Q12H PRN Constipation Hydralazine HCl 10 mg 01/18/20 06:05 Apresoline Hcl Inj IV PUSH Q4H PRN SBP greater than 180 Hydralazine HCl 50 mg 01/18/20 09:00 01/21/20 17:16 Apresoline Tablet PO 50 mg TID DUANE Administration Hydrochlorothiazide 25 mg 01/18/20 09:00 01/21/20 08:28 Hydrochlorothiazide PO 25 mg DAILY DUANE Administration Sodium Chloride 1,000 mls @ 100 mls/hr 01/21/20 08:35 01/22/20 04:36 Normal Saline Iv IV CONT 100 mls/hr .Q10H DUANE Administration Lisinopril 20 mg 01/18/20 09:00 01/21/20 08:29 Prinivil PO 20 mg QAM DUANE Administration Montelukast Sodium 10 mg 01/18/20 09:00 01/21/20 08:28 Singulair PO 10 mg DAILY DUANE Administration Multivitamins/Minerals 1 tablet 01/18/20 09:00 01/21/20 17:17 Ocuvite PO 1 tablet BID DUANE Administration Ondansetron HCl 4 mg 01/21/20 17:15 07/13/20 18:08 Zofran Inj IV PUSH 4 mg Q6H PRN Administration Nausea And Vomiting Polyethylene Glycol 17 gm 01/18/20 12:39 Edward
[2020-01-22] MEDS: lisinopriL 20 MG TABLET PO (08:38)
[2020-01-22] MEDS: OPTI-GEN TAB 1 TABLET PO ×2 (08:38→17:00)
[2020-01-22] MEDS: ASPIRIN 81 MG ENTERIC TABLET PO (08:38)
[2020-01-22] MEDS: hydroCHLOROthiazide 25 MG TABLET PO (08:38)
[2020-01-22] MEDS: MONTELUKAST SODIUM 10 MG TABLET PO (08:38)
[2020-01-22] MEDS: hydrALAZINE HCL 50 MG TABLET PO ×2 (08:38→17:01)
[2020-01-22] MEDS: SODIUM CHLORIDE 0.9% IV 1,000 ML 50 ML IV CONT (12:00)
--- NOTE | 2020-01-22 12:04 | P.HPUP_ITS ---
History and Physical Update Update Date/Time: 01/22/20 12:04 History and Physical has been reviewed, including an updated exam of the patient. Patient with symptomatic complete heart block, narrow complex escape rhythm, normal left ventricular function. Planning elective dual-chamber pa cemaker implant. There are NO changes in the patient's condition. Risks, benefits, and alternatives have been discussed and questions answered. Reviewed risks of pacemaker implant with patient. May do a venogram with a small amount of IV contrast; known to have CKD. These include breathing problems, allergic reactions, bleeding, infection, pneumothorax, cardiac puncture, need for unanticipated surgery, lead dislodgement among others. Patient agrees to proceed with procedure.
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
--- NOTE | 2020-01-22 12:45 | PC.NURSE ---
Pt to [facility] for pacemaker implantation. Traveled via stretcher, with no issues noted. Daughter at bedside.
--- NOTE | 2020-01-22 14:18 | PM.OP ---
Procedure Note - Brief Procedure Note - Brief Date of procedure: 01/22/20 Pre-op diagnosis: Weakness Symptomatic complete heart Post-op diagnosis: same Procedure performed: Conscious sedation Venogram Implantation of a permanent dual-chamber his Description of procedure: Patent left subclavian vein Uneventful implantation of a permanent dual-chamber Biotronik pacemaker Implants: Dual-chamber Biotronik pacemaker Pulse generator: Biotronik Edora 8 DR-T, Serial number [id number] RA lead: Biotronik Solia S 53 Serial number [id number] RV lead: Biotronik Solia S 60, Serial number [id number] Anesthesia: local (with conscious sedation) Surgeon: Corazon Melara MD Estimated blood loss (mL): 10 Drains: No Packing: No Pathology: none sent Complications: No immediate complications Condition: stable Disposition: observation Findings: Patient had a very irritable ventricle with runs of ventricular tachycardia during RV lead placement. Apical lead placement caused significant VT so I opted to place the RV lead on the high septum, which was arrhythmically quiet and provided great sensing and pacing thresholds.
--- NOTE | 2020-01-22 14:25 | ECG_ITS ---
Measurements Intervals [place] Rate: 65 P: 58 ND: 169 QRS: 85 QRSD: 167 T: -89 QT: 485 QTc: 508 Interpretive Statements ATRIAL SENSE- ELECTRONIC VENTRICULAR PACEMAKER BASELINE ARTIFACT- II, III, AVR, AVL,A VF, V3 NO FURTHER INTERPRETATION IS POSSIBLE ATYPICAL ECG Electronically Signed On 01-22-2020 15:22:01 CDT by Naman Dee D.O.
--- NOTE | 2020-01-22 14:28 | PM.PROC ---
Procedure Note - Detailed Date of procedure: 01/22/20 Pre-op diagnosis: Weakness Symptomatic complete heart block Post-op diagnosis: same Procedure performed: Conscious sedation Venogram Implantation of a permanent dual-chamber Biotronik pacemaker Description of procedure: PROCEDURE PERFORMED: Conscious sedation Venogram Placement of a permanent dual-chamber pacemaker SITE: Left prepectoral area MEDICATIONS GIVEN IN NETWORK DESIGN ARCHITECT: Ancef 1 gram IV piggyback CONSCIOUS SEDATION: Assessment: The patient has no history of anesthesia problems. The patient's oropharynx is clear. The patient was deemed to be a good candidate for conscious sedation. The patient had continuous hemodynamic monitoring during the procedure. Start time: 1307 Completion time: 14 Total conscious sedation time: 67 minutes Medications: Versed 4 mg, fentanyl 50 mcg IV push Trained observer: Jeevan Choi RN Outcome: The patient tolerated the procedure well with no complications. PROCEDURE: After informed consent , the patient was brought to the packing house laborer and the left prepectoral area was prepped and draped in usual fashion . The patient received preop antibiotic and conscious sedation . The left prepectoral area was anesthetized with lidocaine . A skini ncision was made and carried own to the prepecoral fascia. The pacemaker pocket was formed, and hemostasis was obtained with electrocautery. The left subclavian vein was accessed with the micropuncture technique, and a J-tip guide wire was passed into the inferior vena cava under fluoroscopic guidance . using a 6 Somali sheath and the retained wire technique, a 2nd wire was introduced into the inferior vena cava. The needle And sheath were withdrawn . A 6 Somali Somali safety sheath was passed over one wire, the wire withdrawn, and the right ventricular lead was passed into the inferior vena cava under fluoroscopic guidance . The lead was then prolapsed through the tricuspid valve and advanced into the right ventricular apex. however, the patient had considerable ventricular ectopy and runs of ventricular tachycardia despite repositioning the lead in multiple places in the right ventricular apex. However, I was able to place the lead on the high septum which was a arrhythmically quiet. When suitable sensing and pacing thresholds were obtained, it was screwed into place. No extra cardiac stimulation was obtained using 10 volts. The sheath was withdrawn. Next, another 6 Somali safety sheath was passed over the second wire, the wire withdrawn, and the right atrial lead was passed into the inferior vena cava under fluoroscopic guidance. Right atrial lead was then pulled back to the level of the right atrium and manipulated into the right atrial appendage . When suitable sensing and pacing thresholds were obtained , it was screwed into place . No extra cardiac stimulation was obtained using 10 volts. The sheath was withdrawn. Both leads were secured to the prepectoral fascia using 2-0 silk over their respective sleeves. The pocket was cleansed with antibiotic containing solution . The pulse generator was introduced into the operative field, and both leads were secured into the generator . A gentle tug showed the leads were securely fastened. The device was introduced into the pocket. The subcutaneous tissues were closed in a double layer fashion with interrupted sutures, using 2-0 Vicryl suture , and the skin was closed in a continuous fashion using 4-0 Vicryl suture in a continuous fashion. The area was cleansed, and an Aquacel dressing was applied . The patient tolerated the procedure well with no complications. PACEMAKER INFORMATION: Pulse generator: Biotronik Edora 8 DR-T, Serial number [id number] RA lead: Biotronik Solia S 53 Serial number [id number] RV lead: Biotronik Solia S 60, Serial number [id number] MEASURED DATA: Right atrial: P-wave sensing 4.0 mV, impedance 604 Ohms, threshold 0.
[2020-01-22] MEDS: ATORVASTATIN 40 MG TABLET PO (17:01)
--- NOTE | 2020-01-22 17:43 | PM.IMPN ---
Progress Note: A&P Assessment and Plan (1) Third degree heart block: Code(s): I44.2 - Atrioventricular block, complete Status: Acute Assessment and Plan: The patient was found to be in a third-degree heart block upon arrival to the emergency department. The patient has weakness but is otherwise asymptomatic. Dr. Dee consulted; appreciate recommendations. S/p pacemaker placement per Dr. Melara ([facility] [place]) today. Patient tolerated procedure well. Will continue monitoring the patient on telemetry. Cardiology's input is greatly appreciated; await further input (2) Occlusion of left internal carotid artery: Code(s): I65.22 - Occlusion and stenosis of left carotid artery Status: Acute Assessment and Plan: Due to the patient's weakness a CT scan of his head was ordered which showed Old infarct versus subacute infarct. 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 Lack of flow void in the left internal carotid artery which may be seen with total occlusion or slow flow. CTA head/neck was confirms total occlusion of the left internal carotid artery. Patient was not on any anticoagulation or anti-platelet medications at home. Will continue the patient on aspirin 81 mg daily. Will work on blood pressure control. Will have him follow-up with primary care provider and he may need a referral to a vascular surgeon as an outpatient; likely limited intervention at this time Will continue monitoring patient's symptoms during hospitalization (3) Uncontrolled hypertension: Code(s): I10 - Essential (primary) hypertension Status: Acute Assessment and Plan: BP 130s sys Dr. Dee following and appreciate recommendations Continue hydralazine 50 mg t.i.d., lisinopril 20 mg daily, HCTZ per Dr. Dee rec (4) Weakness: Code(s): R53.1 - Weakness Status: Acute Assessment and Plan: Most likely secondary to his 3rd degree heart block and bradycardic rhythm. S/p pacemaker placement today Will continue monitoring on telemetry. The nurse states he has been up and walking around without any issues and he does not appear to be off balance. Will hold on physical and occupational therapy at this time. Subjective Date/time seen: 01/22/20 17:43 Interval history: Patient is a 74 yo M with history of CKDIII, HTN, and HLD who is here for evaluation for complete heart block; patient s/p pacemaker placement per Dr. Melara today. Patient states he is feeling much better today after his pacemaker placement. He has some tenderness over his left chest. Denies f/c/s, headaches, dizziness, lightheadedness, cp/palpitations, sob/cough, n/v/d/c, abd pain, changes in BMs, dysuria, hematuria, cloudy urine, calf pain/swelling. Review of Systems Review of Systems: All systems reviewed & are unremarkable except as noted in HPI and below Exam Narrative: Exam Narrative: Patient lying in semi-curtis's position at time of visit; left arm in sling Const: General: cooperative, comfortable, no acute distress, well developed, alert and ill appearing chronically Orientation/consciousness: patient oriented x3 HENMT: Head: normocephalic and atraumatic General nose exam: Normal nares present Face and sinus: face symmetric Mouth: Yes moist mucous membranes Eyes: General: appearance normal, both eyes and all related structures EOM: EOMs intact bilaterally Neck: Neck: trachea midline and supple Resp: Effort & Inspection: normal respiratory effort Auscultation: clear to auscultation bilaterally Cardio: Rate: regular rate Rhythm: regular rhythm Heart sounds: no murmurs Other: Paced rhythm at time of visit GI: Inspection: non-distended and obesity GI Palp: No abdominal tenderness and Yes Soft to pa
[2020-01-22] MEDS: ceFAZolin 2 GM/D5W 50 ML 2 GM/50 ML BAG IVPB (18:36)
[2020-01-23] VITALS (9 sets, daily range): BP systolic 151–164; BP diastolic 64–72; PULSE 60–89; RESP 18–20; TEMP 36.2–36.6; O2SAT 98–100
[2020-01-23] MEDS: ACETAMINOPHEN 325 MG TABLET 650 MG PO (01:48)
[2020-01-23] MEDS: ceFAZolin 2 GM/D5W 50 ML 2 GM/50 ML BAG IVPB (01:49)
[2020-01-23 04:58] LABS: Hematocrit 39.8 % (42.0-52.0); Hemoglobin 13.6 g/dL (14.0-18.0); Mean Corpuscular HGB Conc 34.2 g/dl (32-36); Mean Corpuscular Hemoglobin 30.4 pg (26-34); Mean Platelet Volume 11.6 fl (7.4-10.4); Platelet Count Result 197 k/mm3 (150-375); Red Blood Count 4.47 M/mm3 (4.6-6.20); Red Cell Distribution Width 13.2 % (11.5-14.5); White Blood Count 10.7 K/mm3 (4.5-10.0)
[2020-01-23 05:15] LABS: Blood Urea Nitrogen 22 mg/dL (9-20); Calcium 8.4 mg/dL (8.4-10.2); Carbon Dioxide 23 mmol/L (22-30); Chloride 107 mmol/L (98-107); Estimated CRCL calculation 45 ml/min; Estimated Glomerular Filt Rate 54; Glucose 91 mg/dL (75-110); Magnesium 1.9 mg/dL (1.6-2.3); Potassium 4.1 mmol/L (3.4-5.0); Sodium 135 mmol/L (137-145)
--- NOTE | 2020-01-23 07:49 | PM.PNCARD ---
Progress Note: A&P Assessment and Plan (1) Third degree heart block: Code(s): I44.2 - Atrioventricular block, complete Status: Acute Assessment and Plan: His heart block did not recover for last 3-4 days off Verapamil. S/P pacemaker on 01/22/[address] Melara. May d/c home if OK with HCG and hospitalist. F/U with Dr. Melara 1 week for wound check. F/U with me in 3-4 weeks. (2) CKD (chronic kidney disease) stage 3, GFR 30-59 ml/min: Code(s): N18.3 - Chronic kidney disease, stage 3 (moderate) Status: Acute (3) Essential (primary) hypertension: Code(s): I10 - Essential (primary) hypertension Status: Acute Assessment and Plan: Stable. Avoid AV silvio blocking agents. (4) 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 LDL goal <100: Code(s): E78.5 - 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, unspecified Status: Acute Subjective Date/time seen: 01/23/20 07:49 Had pacemaker implanted yesterday. He feels great, no longer weak. Exam Const: General: comfortable and no acute distress Neck: Neck: no JVD Resp: Auscultation: clear to auscultation bilaterally, no crackles, no rales, no rhonchi and no wheezes Cardio: Rate: regular rate Rhythm: regular rhythm GI: Inspection: non-distended Neuro: Speech: normal speech Extrem: Right lower extremity: no edema Left lower extremity: no edema Objective Data Vital Signs Vital Signs: Vital Signs - 24 hr 01/22/20 08:00 01/22/20 10:00 01/22/20 11:25 Temperature 97.8 F Pulse Rate 44 L 46 L 55 L Respiratory Rate 18 Blood Pressure 129/37 L Pulse Oximetry 98 01/22/20 12:00 01/22/20 14:30 01/22/20 14:45 Temperature Pulse Rate 55 L 74 71 Respiratory Rate 14 14 Blood Pressure 137/74 130/75 Pulse Oximetry 100 99 01/22/20 15:00 01/22/20 15:15 01/22/20 15:31 Temperature Pulse Rate 68 70 60 Respiratory Rate 14 16 10 L Blood Pressure 142/68 H 147/63 H 149/62 H Pulse Oximetry 100 99 99 01/22/20 16:00 01/22/20 16:10 01/22/20 16:30 Temperature 98.2 F 98.5 F Pulse Rate 70 65 80 Respiratory Rate 18 20 Blood Pressure 139/58 L 143/80 H Pulse Oximetry 100 100 01/22/20 17:00 01/22/20 18:00 01/22/20 18:01 Temperature 98.4 F 98.4 F Pulse Rate 81 72 77 Respiratory Rate 20 18 Blood Pressure 136/64 134/59 L Pulse Oximetry 99 99 01/22/20 19:47 01/22/20 20:00 01/22/20 22:00 Temperature 97.6 F Pulse Rate 72 74 79 Respiratory Rate 20 20 Blood Pressure 129/47 L Pulse Oximetry 98 01/22/20 23:18 01/23/20 00:00 01/23/20 02:00 Temperature 97.9 F Pulse Rate 72 89 64 Respiratory Rate 20 20 Blood Pressure 143/58 H Pulse Oximetry 97 01/23/20 03:50 01/23/20 03:51 01/23/20 04:00 Temperature 97.9 F Pulse Rate 78 78 70 Respiratory Rate 20 20 Blood Pressure 151/68 H Pulse Oximetry 98 01/23/20 06:00 Temperature Pulse Rate 60 Respiratory Rate Blood Pressure Pulse Oximetry Intake/Output Intake/Output: Intake & Output 01/20/20 01/21/20 01/22/20 01/23/20 23:59 23:59 23:59 23:59 Intake Total 1870 1300.0 3523 150 Output Total 375 1075 2650 450 Balance 1495 225.0 873 -300 Meds/Results Medications: Active Medications Generic Name Dose Route Start Last Admin Trade Name Freq PRN Reason Stop Dose Admin Acetaminophen 650 mg 01/18/20 22:04 01/23/20 01:48 Tylenol Tablet PO 650 mg Q6H PRN Administration Mild Pain (1-3) or Fever Hydrocodone Bitart/Acetaminophen 1 tab 01/22/20 14:25 [place] 5-325 Mg PO Q6H PRN Pain Rated 4-6 Hydrocodone Bitart/Acetaminophen 2 tab 01/22/20 14:25 [place] 5-325 Mg PO Q6H PRN Pain Rated 7-10 Aspirin 81 mg 01/18/20 16:50 01/22/20 08:38 Aspirin Ec PO 81 mg QAM DUANE Administration Atorvastatin Calcium 40 mg 01/18/20 18:00 01/22/20 17:01 Lipitor PO 40 mg QPM DUANE Administration Docusate Sodium 100 mg 01/18/20 12:39 Colace Capsule PO Q12H PRN Constipation Hydralazine HCl 10 mg
[2020-01-23] MEDS: hydrALAZINE HCL 50 MG TABLET PO ×2 (08:23→13:10)
[2020-01-23] MEDS: ASPIRIN 81 MG ENTERIC TABLET PO (08:23)
[2020-01-23] MEDS: lisinopriL 20 MG TABLET PO (08:23)
[2020-01-23] MEDS: OPTI-GEN TAB 1 TABLET PO (08:23)
[2020-01-23] MEDS: MONTELUKAST SODIUM 10 MG TABLET PO (08:23)
[2020-01-23] MEDS: hydroCHLOROthiazide 25 MG TABLET PO (08:23)
--- NOTE | 2020-01-23 11:31 | PM.DS ---
DS: Admitting Diagnosis Admitting Diagnosis Admitting Diagnosis: Atrioventricular block, complete DS: Discharge Diagnosis Discharge Diagnosis (1) Third degree heart block: Code(s): I44.2 - Atrioventricular block, complete Status: Acute Assessment and Plan: The patient was found to be in a third-degree heart block upon arrival to the emergency department. The patient has weakness but is otherwise asymptomatic. Dr. Dee consulted; appreciate recommendations. S/p pacemaker placement per Dr. Melara ([facility] [place]) 01/21. Patient tolerated procedure well. Okay for discharge from Cardiology standpoint F/u with [facility] [place] and Dr. Dee after discharge Cardiology's input is greatly appreciated (2) Occlusion of left internal carotid artery: Code(s): I65.22 - Occlusion and stenosis of left carotid artery Status: Acute Assessment and Plan: Due to the patient's weakness a CT scan of his head was ordered which showed Old infarct versus subacute infarct. 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 Lack of flow void in the left internal carotid artery which may be seen with total occlusion or slow flow. CTA head/neck was confirms total occlusion of the left internal carotid artery. Patient was not on any anticoagulation or anti-platelet medications at home. Will continue the patient on aspirin 81 mg daily at discharge Recommend monitoring BP at home Will have him follow-up with primary care provider and he may need a referral to a vascular surgeon as an outpatient; likely limited intervention at this time (3) Uncontrolled hypertension: Code(s): I10 - Essential (primary) hypertension Status: Acute Assessment and Plan: BP 150-160s sys this morning, but otherwise reasonable controlled Dr. Dee following and appreciate recommendations Continue hydralazine 50 mg t.i.d., lisinopril 20 mg daily, HCTZ per Dr. Dee rec Recommend monitoring BP (4) Weakness: Code(s): R53.1 - Weakness Status: Acute Assessment and Plan: Most likely secondary to his 3rd degree heart block and bradycardic rhythm. S/p pacemaker placement today The nurse states he has been up and walking around without any issues and he does not appear to be off balance. Will hold on physical and occupational therapy at this time as patient is also declining need for PT/OT (5) Leukocytosis: Code(s): D72.829 - Elevated white blood cell count, unspecified Status: Acute Assessment and Plan: Appears to be chronic upon review of labs from last year. No signs/symptoms of acute infection. VSS, afebrile. Mildly elevated WBC and stable CBC in 1 week F/u with PCP DS: Summary Hospital Course Reason for hospitalization: weakness; 3rd degree heart block Hospital Course: Patient is a 74 yo M with history of hypertension, obstructive sleep apnea, and hyperlipidemia who presented to the ER via EMS from home on 01/16 due to weakness. while in the ED, he was found to be in a thrid-degree heart block with heart rate 60-80; upon admission to IMU, his heart rate was as low as 32. Patient admitted under this setting. Please see H&P for further details. Presenting VS: Temp Pulse Resp BP Pulse Ox 98.3 F 65 16 193/59 H 99 01/17/20 22:35 01/17/20 22:35 01/17/20 22:35 01/17/20 22:35 01/17/20 22:35 Presenting Pertinent labs: BUN 28, Cr 1.60, serial troponin -0.019, 0.023, 0.026. CBC, coag, chemistry, UA otherwise unremarkable Micro: none Imaging: Head CT 01/17/20 22:52 IMPRESSION: 1. Geographic hypodensity of the left parietal lobe, consistent with infarction, most likely chronic, although a subacute component cannot be excluded. Recommend correlation with MRI. Chest X-Ray
--- NOTE | 2020-01-23 12:01 | PM.EVENT ---
Event Note Event Note Event Note: Pacemaker Draft documented
--- NOTE | 2020-01-23 14:16 | PM.EVENT ---
Event Note Event Note Event Note: Brief encounter post pacemaker implantation 01/22/2020 Date of service: 01/23/2020 at 11:53 Subjective: No discomfort at the pacemaker site. Pacemaker interrogation reveals that the pacemaker is functioning appropriately. Lead impedance and sensing are within normal limits. 29% atrially paced 100% ventricularly paced. Pressure dressing was removed. Left subclavian Aquacel dressing is intact. No swelling or bleeding. No drainage on the dressing. Activity restrictions and follow-up were discussed. Questions were answered See discharge instructions for follow-up. He may be discharged from a cardiac standpoint. Plan discussed with Dr Melara 1200 01/23/2020 Nusrat Jefferson ANP,ACNP-BC
== END 2020-01-23 14:30 | disposition home or self-care (01) | DRG 244 ==
LOC: ANHED 01-18 01:07 → ANHIMU 01-18 01:29
PROVIDERS: Internal Medicine Cardiovascular Disease; Physician Assistant; Admitting Provider Internal Medicine; Emergency Provider Emergency Medicine; PCP Family Medicine; Visit Provider Physician Assistant
PROC: 0JH606Z Insertion of Pacemaker, Dual Chamber into Chest Subcutaneous Tissue and Fascia, Open Approach (ICD-10-PCS; CPT 33208; principal; 2020-01-22 11:00)
DX: I44.2 Atrioventricular block, complete (principal); I12.9 Hypertensive chronic kidney disease with stage 1 through stage 4 chronic kidney disease, or unspecified chronic kidney disease; N18.3 Chronic kidney disease, stage 3 (moderate); I65.22 Occlusion and stenosis of left carotid artery; R93.0 Abnormal findings on diagnostic imaging of skull and head, not elsewhere classified; D72.829 Elevated white blood cell count, unspecified; G47.33 Obstructive sleep apnea (adult) (pediatric); E78.5 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, unspecified; K21.9 Gastro-esophageal reflux disease without esophagitis; E55.9 Vitamin D deficiency, unspecified; Z98.42 Cataract extraction status, left eye; Z98.41 Cataract extraction status, right eye
CPT/HCPCS: 33208; 36415; 70450; 70496; 70498; 70551; 71045; 71046; 80048; 80053; 80061; 81001; 83735; 84484; 85025; 85027; 85610; 85730; 93005; 93306; 96360; 99285; A9270; C1779; C1785; G0378; J0690; J2250; J2405; J3010; J7030; J7040; Q9967

== ENCOUNTER 2020-01-25 15:54 | Observation (INO) | payer MEDICARE, SELFPAY ==
[2020-01-25] VITALS (10 sets, daily range): BP systolic 118–162; BP diastolic 61–105; PULSE 72–98; RESP 18–22; TEMP 36.6–37.1; O2SAT 96–100; BMI 24.7
--- NOTE | ~2020-01-25 | CT_ITS ---
EXAMINATION: CT brain wo con DATE: 01/25/2020 19:49 INDICATION: Dizziness. Weakness. TECHNIQUE: Computed tomography (CT) of the head was performed without intravenous contrast. The mA wa s adjusted according to patient size. Iterative reconstruction technique was employed. The dose-lengt h product was 605.33 mGy-cm. COMPARISON: Head CT 01/18/2020 FINDINGS: There is an old infarct involving the left insula and left parietal lobe. There is no intra cranial hemorrhage, acute infarction, or abnormal intracranial mass lesion. The ventricles are normal in size. There are likely changes of ocular lens replacement surgeries. The paranasal sinuses are cl ear. The mastoid air cells are normal. IMPRESSION: 1. Old infarct involving the left insula and left parietal lobe. Reviewed, dictated and finalized at location A.
--- NOTE | ~2020-01-25 | XR_ITS ---
EXAMINATION: XR chest 2V 01/25/2020 16:24 INDICATION: Weakness. Tingling in arms. PROCEDURE: 2 view chest COMPARISON: Comparison to multiple prior studies sequentially, with oldest reviewed study dated 09/2003. FINDINGS: The lungs are clear. Pacemaker leads are stable. No The cardiomediastinal silhouette is wit hin normal limits. There are no pleural effusions. There is no pneumothorax suspected. IMPRESSION: 1: NO ACUTE CARDIOPULMONARY DISEASE. Reviewed, dictated and finalized at location B.
--- NOTE | 2020-01-25 16:03 | ECG_ITS ---
Measurements Intervals [place] Rate: 86 P: 76 SC: 177 QRS: 87 QRSD: 154 T: 262 QT: 407 QTc: 488 Interpretive Statements ATRIAL SENSE- ELECTRONIC VENTRICULAR PACEMAKER BASELINE ARTIFACT- I, III, AVL, AVF NO FURTHER INTERPRETATION IS POSSIBLE ATYPICAL ECG Electronically Signed On 01-25-2020 16:53:42 CDT by Naman Dee D.O.
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
[2020-01-25 16:16] LABS: Basophils Absolute Auto 0.1 K/mm3 (0.0-0.1); Basophils Percent Auto 0.5 % (0.2-1.2); Eosinophils Absolute Auto 0.3 K/mm3 (0-0.3); Eosinophils Percent Auto 2.4 % (0-4.4); Hematocrit 44.8 % (42.0-52.0); Hemoglobin 15.6 g/dL (14.0-18.0); Immature Granulocyte Absolute 0.03 K/mm3 (0.00-0.031); Immature Granulocyte Percent A 0.3 % (0-0.5); Lymphocytes Absolute Auto 1.72 K/mm3 (0.9-3.2); Mean Corpuscular HGB Conc 34.8 g/dl (32-36); Mean Corpuscular Hemoglobin 30.4 pg (26-34); Mean Corpuscular Volume 87.3 fl (80-100); Monocytes Absolute Auto 1.1 K/mm3 (0.1-0.6); Monocytes Percent Auto 9.5 % (2.6-8.5); Neutrophils Absolute Auto 8.3 K/mm3 (1.3-6.7); Neutrophils Percent Auto 72.3 % (45.5-73.1); Platelet Count Result 236 k/mm3 (150-375); Red Blood Count 5.13 M/mm3 (4.6-6.20); Red Cell Distribution Width 13.2 % (11.5-14.5); White Blood Count 11.5 K/mm3 (4.5-10.0)
[2020-01-25 16:30] LABS: Alanine Aminotransferase 25 U/L (4-50); Albumin Level 4.4 g/dL (3.5-5.1); Alkaline Phosphatase 126 U/L (38-126); Aspartate Amino Transferase 35 U/L (17-59); Bilirubin,Total 0.9 mg/dL (0.2-1.3); Blood Urea Nitrogen 21 mg/dL (9-20); Calcium 9.3 mg/dL (8.4-10.2); Carbon Dioxide 21 mmol/L (22-30); Chloride 104 mmol/L (98-107); Estimated CRCL calculation 45 ml/min; Estimated Glomerular Filt Rate 54; Glucose 110 mg/dL (75-110); Potassium 4.1 mmol/L (3.4-5.0); Sodium 135 mmol/L (137-145)
[2020-01-25 17:22] LABS: Add Urine Microscopic? YES; Appearance Urine Clear (Clear); Bilirubin Urine Negative (Negative); Blood Urine Negative (Negative); Color Urine Straw (Yellow); Glucose Urine UA Negative (Negative); Ketones Urine Negative (Negative); Leukocyte Esterase Ur Negative LEU/UL (Negative); Mucus Urine Rare /lpf; Nitrate Urine Negative (Negative); Protein Urine Negative (Negative); RBC Urine 0-2 /hpf (0-2); Specific Grav Ur 1.009 (1.001-1.035); Urobilinogen Urine Negative mg/dL (<2.0)
[2020-01-25 17:44] LABS: INR 1.1; Prothrombin Time 14.2 Seconds (11.1-14.7)
[2020-01-25 17:45] LABS: Partial Thromboplastin Time 29.5 SECONDS (22.3-36.8)
[2020-01-25 17:53] LABS: Troponin I 0.052 ng/mL (0.000-0.034)
--- NOTE | 2020-01-25 19:42 | PC.NURSE ---
pt to ct via stretcher with radiology at this time.
[2020-01-25] MEDS: SODIUM CHLORIDE 0.9% IV 500 ML 999 ML IV CONT (20:03)
[2020-01-25 20:35] LABS: Troponin I 0.057 ng/mL (0.000-0.034)
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
--- NOTE | 2020-01-25 22:40 | ADMIMU ---
This patient, Jerry Chappell Sr., was admitted to IMU status, and placed in IMU Room 214-01 on 01/25/20 at 2210. Patient/family oriented to hospital policies and general routines including ID bracelet, bed and alarms, visiting hours, pain management, procedures, bathroom and other care routines, personal items, smoking policy, room service/diet, and visiting hours. Valuables list has been completed. Information on how to activate the Rapid Response Team has been discussed. Patient/Family are encouraged to report perceived risks to care and to ask questions if they do not understand what they are told or what they should do.
[2020-01-26] VITALS (8 sets, daily range): BP systolic 162; BP diastolic 69–71; PULSE 60–98; RESP 18; TEMP 36.5–37.1; O2SAT 98–100
[2020-01-26] MEDS: ACETAMINOPHEN 325 MG TABLET 650 MG PO (00:49)
[2020-01-26 02:19] LABS: Basophils Absolute Auto 0.1 K/mm3 (0.0-0.1); Basophils Percent Auto 0.6 % (0.2-1.2); Eosinophils Absolute Auto 0.4 K/mm3 (0-0.3); Eosinophils Percent Auto 4.6 % (0-4.4); Hematocrit 42.7 % (42.0-52.0); Hemoglobin 14.7 g/dL (14.0-18.0); Immature Granulocyte Absolute 0.02 K/mm3 (0.00-0.031); Immature Granulocyte Percent A 0.2 % (0-0.5); Lymphocytes Absolute Auto 1.63 K/mm3 (0.9-3.2); Lymphocytes Percent Auto 17.1 % (18.3-44.2); Mean Corpuscular HGB Conc 34.4 g/dl (32-36); Mean Corpuscular Hemoglobin 30.2 pg (26-34); Mean Corpuscular Volume 87.7 fl (80-100); Mean Platelet Volume 11.2 fl (7.4-10.4); Monocytes Absolute Auto 0.9 K/mm3 (0.1-0.6); Monocytes Percent Auto 9.4 % (2.6-8.5); Neutrophils Absolute Auto 6.5 K/mm3 (1.3-6.7); Neutrophils Percent Auto 68.1 % (45.5-73.1); Platelet Count Result 210 k/mm3 (150-375); Red Blood Count 4.87 M/mm3 (4.6-6.20); White Blood Count 9.6 K/mm3 (4.5-10.0)
[2020-01-26 02:36] LABS: Lactic Acid 0.8 mmol/L (0.7-2.1)
[2020-01-26 02:37] LABS: Alanine Aminotransferase 26 U/L (4-50); Albumin Level 4.1 g/dL (3.5-5.1); Alkaline Phosphatase 112 U/L (38-126); Aspartate Amino Transferase 36 U/L (17-59); Bilirubin,Total 1.1 mg/dL (0.2-1.3); Blood Urea Nitrogen 20 mg/dL (9-20); CRP 0.7 mg/dL (<1.0); Carbon Dioxide 23 mmol/L (22-30); Chloride 108 mmol/L (98-107); Estimated CRCL calculation 45 ml/min; Estimated Glomerular Filt Rate 54; Glucose 115 mg/dL (75-110); Potassium 3.7 mmol/L (3.4-5.0); Sodium 139 mmol/L (137-145)
[2020-01-26] MEDS: hydrALAZINE HCL 50 MG TABLET PO (09:18)
[2020-01-26] MEDS: OPTI-GEN TAB 1 TABLET PO (09:18)
[2020-01-26] MEDS: lisinopriL 20 MG TABLET PO (09:18)
[2020-01-26] MEDS: MONTELUKAST SODIUM 10 MG TABLET PO (09:18)
[2020-01-26] MEDS: ASPIRIN 81 MG ENTERIC TABLET PO (09:18)
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
--- NOTE | 2020-01-26 17:21 | PM.DS ---
DS: Admitting Diagnosis Admitting Diagnosis Admitting Diagnosis: Weakness DS: Discharge Diagnosis Discharge Diagnosis (1) Weakness: Code(s): R53.1 - Weakness Status: Acute Assessment and Plan: Mildly dehydrated as he takes hydrochlorothiazide and has not been drinking fluids like he should. Hydrated to the emergency room. And felt much better after night's rest.. Was up and about feeling better and able to be discharged His hydrochlorothiazide was discontinued. (2) Elevated troponin: Code(s): R79.89 - Other specified abnormal findings of blood chemistry Status: Acute Assessment and Plan: Could be related to the pacemaker insertion and serial results were flat and Cardiology felt it was secondary to pacemaker insertion (3) 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: Code(s): E78.5 - 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, unspecified Status: Chronic Assessment and Plan: Patient has been on atorvastatin. (4) CKD (chronic kidney disease) stage 3, GFR 30-59 ml/min: Code(s): N18.3 - Chronic kidney disease, stage 3 (moderate) Status: Chronic Assessment and Plan: Looks like patient has been having some improvement and is followed by Dr. Garcia. Creatinine stable at 1.3 (5) Essential (primary) hypertension: Code(s): I10 - Essential (primary) hypertension Status: Chronic Assessment and Plan: Hydrochlorothiazide was discontinued and with systolic pressure consistently 150-160 his lisinopril was increased to 40 mg daily DS: Summary Hospital Course Hospital Course: 74-year-old hypertensive white male discharge from the hospital on the after placement of dual-chamber permanent pacer. Since he had been home he not been eating well or drinking much fluids and presented to the emergency room feeling weak. Troponin was borderline elevated and patient was admitted. After hydration and good night's rest he felt much better was up and about without any symptomatology. Troponin serial testing was flat and Cardiology felt mild rise with secondary to the pacemaker insertion Hydrocort thighs it was discontinued and lisinopril was increased to 40 mg daily. L follow-up with healthcare technician as previously planned and 01/28 Time Spent with Patient Time attestation: Total time spent providing and/or coordinating discharge services: 35 minutes Exam Narrative: Exam Narrative: Condition on discharge Blood pressure 162/70 pulse is 66 and regular sat 100% on room air Lungs clear CV regular rate rhythm Abdomen soft nontender Extremities without edema good distal pulses Neuro alert cooperative no focal deficits Nausea of subsided eating well, up without assist DS: Data Data Completed and Pending Labs on day of discharge: Labs from last 24 hours 01/26/20 01/26/20 01/26/20 02:11 02:11 02:11 WBC RBC Hgb Hct MCV MCH MCHC RDW Plt Count MPV Immature Gran % (Auto) Neut % (Auto) Lymph % (Auto) [place] % (Auto) Eos % (Auto) Baso % (Auto) Lymph # (Auto) [place] # (Auto) Eos # (Auto) Baso # (Auto) Abs Immat Gran (auto) Absolute Neuts (auto) Absolute Nucleated RBC Nucleated RBC % PT INR APTT Sodium 139 Potassium 3.7 Chloride 108 H Carbon Dioxide 23 BUN 20 Creatinine 1.30 Estim Creat Clear Calc 45 Estimated GFR 54 L Glucose 115 H Lactic Acid 0.8 Calcium 9.0 Magnesium 2.0 Total Bilirubin 1.1 AST 36 ALT 26 Alkaline Phosphatase 112 Troponin I C-Reactive Protein 0.7 Total Protein 7.0 Albumin 4.1 TSH (Reflex) 2.900 Urine Color Urine Appearance Urine pH Ur Specific [place] Urine Protein Urine Glucose (UA) Urine Ketones Ur Blood (Man) Urine Nitrate Urine Bilirubin Urine Urobilinogen Leukocyte Esterase Rfl Urine RBC Urine Mucus 01/26/20 01/26/20 01/25/20 02:11 02:11 19:40 WBC 9.6 RBC 4.87 H
== END 2020-01-26 12:05 | disposition home or self-care (01) ==
LOC: ANHED 20:03 → ANHIMU 01-26 00:27
PROVIDERS: Nurse Practitioner; Admitting Provider Family Medicine; Emergency Provider Emergency Medicine; PCP Family Medicine; Visit Provider Internal Medicine
DX: E86.0 Dehydration (principal); R53.1 Weakness; R79.89 Other specified abnormal findings of blood chemistry; I44.2 Atrioventricular block, complete; Z95.0 Presence of cardiac pacemaker; E78.5 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, unspecified; I12.9 Hypertensive chronic kidney disease with stage 1 through stage 4 chronic kidney disease, or unspecified chronic kidney disease; N18.3 Chronic kidney disease, stage 3 (moderate); G47.33 Obstructive sleep apnea (adult) (pediatric); E55.9 Vitamin D deficiency, unspecified; Z79.82 Long term (current) use of aspirin; Z79.899 Other long term (current) drug therapy
CPT/HCPCS: 36415; 70450; 71046; 80053; 81001; 83605; 83735; 84443; 84484; 85025; 85610; 85730; 86140; 93005; 97161; 97165; 99285; A9270; G0378; J7040

== ENCOUNTER 2020-01-29 08:09 | Outpatient (CLI) | payer MEDICARE, SELFPAY ==
[2020-01-29 08:21] LABS: Basophils Absolute Auto 0.1 K/mm3 (0.0-0.1); Basophils Percent Auto 0.7 % (0.2-1.2); Eosinophils Absolute Auto 0.7 K/mm3 (0-0.3); Eosinophils Percent Auto 7.8 % (0-4.4); Hematocrit 40.8 % (42.0-52.0); Immature Granulocyte Absolute 0.03 K/mm3 (0.00-0.031); Immature Granulocyte Percent A 0.3 % (0-0.5); Lymphocytes Absolute Auto 1.44 K/mm3 (0.9-3.2); Lymphocytes Percent Auto 15.8 % (18.3-44.2); Mean Corpuscular HGB Conc 34.3 g/dl (32-36); Mean Corpuscular Hemoglobin 30.3 pg (26-34); Mean Corpuscular Volume 88.3 fl (80-100); Mean Platelet Volume 10.2 fl (7.4-10.4); Monocytes Absolute Auto 0.8 K/mm3 (0.1-0.6); Monocytes Percent Auto 8.6 % (2.6-8.5); Neutrophils Absolute Auto 6.1 K/mm3 (1.3-6.7); Neutrophils Percent Auto 66.8 % (45.5-73.1); Platelet Count Result 238 k/mm3 (150-375); Red Blood Count 4.62 M/mm3 (4.6-6.20); Red Cell Distribution Width 13.1 % (11.5-14.5); White Blood Count 9.1 K/mm3 (4.5-10.0)
[2020-01-29 08:43] LABS: Blood Urea Nitrogen 18 mg/dL (9-20); Carbon Dioxide 22 mmol/L (22-30); Chloride 107 mmol/L (98-107); Estimated Glomerular Filt Rate > 60; Glucose 105 mg/dL (75-110); Potassium 4.3 mmol/L (3.4-5.0); Sodium 137 mmol/L (137-145)
== END 2020-01-29 08:10 | disposition home or self-care (01) ==
PROVIDERS: PCP Family Medicine; Visit Provider Physician Assistant
DX: D72.829 Elevated white blood cell count, unspecified (principal); N18.3 Chronic kidney disease, stage 3 (moderate)
CPT/HCPCS: 36415; 80048; 85025

== ENCOUNTER 2020-02-01 14:07 | Emergency (ER) | payer MEDICARE, SELFPAY ==
[2020-02-01] VITALS (9 sets, daily range): BP systolic 141–191; BP diastolic 69–86; PULSE 85–101; RESP 15–21; TEMP 36.5–36.9; O2SAT 95–100
--- NOTE | ~2020-02-01 | XR_ITS ---
EXAMINATION: XR chest 1V portable DATE: 02/01/2020 14:46 INDICATION: Cough. Weakness. TECHNIQUE: A single frontal view of the chest was obtained. COMPARISON: Chest 2 views 01/25/2020, neck CTA 01/18/2020 FINDINGS: The chest demonstrates clear lungs without pneumonia, pleural effusion, or pneumothorax. Th e heart size is normal. There is a left chest wall pacer with leads in the right atrium and right mario tricle. The brachiocephalic vessels are tortuous. IMPRESSION: 1. No acute cardiopulmonary disease. Reviewed, dictated and finalized at location A.
--- NOTE | ~2020-02-01 | CT_ITS ---
EXAMINATION: CT brain wo con DATE: 02/01/2020 16:18 INDICATION: Dizziness TECHNIQUE: Computed tomography (CT) of the head was performed without intravenous contrast. The mA wa s adjusted according to patient size. Iterative reconstruction technique was employed. Exam dose: 60 5.33 mGy-cm total exam DLP. COMPARISON: 01/25/2020 CT brain FINDINGS: There is a focal stable posterior left temporal parietal chronic area of encephalomalacia l ikely related to old cerebrovascular infarct, stable since 01/25/2020. No intracranial hemorrhage is e vident. There is no midline shift or mass effect. No subdural or epidural hematoma. No fracture or bone destruction of the cranial vault. Included paranasal sinuses and mastoid air cell s are unremarkable. The right frontal sinus is not developed. IMPRESSION: Chronic posterior left temporoparietal encephalomalacia likely related to old cerebrovas cular infarct Reviewed, dictated and finalized at Location A. Reviewed, dictated and finalized at location B. IMPRESSION: Chronic posterior left temporoparietal encephalomalacia likely rel ated to old cerebrovascular infarct
--- NOTE | 2020-02-01 14:33 | ECG_ITS ---
Measurements Intervals [place] Rate: 88 P: 64 DE: 174 QRS: 80 QRSD: 153 T: -77 QT: 417 QTc: 505 Interpretive Statements ATRIAL SENSE- ELECTRONIC VENTRICULAR PACEMAKER BASELINE ARTIFACT- II, III, AVL, AVF NO FURTHER INTERPRETATION IS POSSIBLE ATYPICAL ECG Electronically Signed On 02-01-2020 14:44:13 CDT by Naman Dee D.O.
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
[2020-02-01 14:48] LABS: Basophils Absolute Auto 0.1 K/mm3 (0.0-0.1); Basophils Percent Auto 0.6 % (0.2-1.2); Eosinophils Absolute Auto 0.6 K/mm3 (0-0.3); Eosinophils Percent Auto 5.5 % (0-4.4); Hematocrit 40.5 % (42.0-52.0); Hemoglobin 13.8 g/dL (14.0-18.0); Immature Granulocyte Absolute 0.04 K/mm3 (0.00-0.031); Immature Granulocyte Percent A 0.4 % (0-0.5); Lymphocytes Absolute Auto 1.32 K/mm3 (0.9-3.2); Lymphocytes Percent Auto 12.1 % (18.3-44.2); Mean Corpuscular HGB Conc 34.1 g/dl (32-36); Mean Corpuscular Hemoglobin 29.9 pg (26-34); Mean Corpuscular Volume 87.9 fl (80-100); Mean Platelet Volume 10.8 fl (7.4-10.4); Monocytes Percent Auto 9.1 % (2.6-8.5); Neutrophils Absolute Auto 7.9 K/mm3 (1.3-6.7); Neutrophils Percent Auto 72.3 % (45.5-73.1); Platelet Count Result 229 k/mm3 (150-375); Red Blood Count 4.61 M/mm3 (4.6-6.20); Red Cell Distribution Width 13.3 % (11.5-14.5); White Blood Count 10.9 K/mm3 (4.5-10.0)
[2020-02-01 14:51] LABS: Add Urine Microscopic? YES; Appearance Urine Clear (Clear); Bilirubin Urine Negative (Negative); Blood Urine Negative (Negative); Color Urine Colorless (Yellow); Glucose Urine UA Negative (Negative); Ketones Urine Negative (Negative); Leukocyte Esterase Ur Negative LEU/UL (Negative); Mucus Urine Rare /lpf; Nitrate Urine Negative (Negative); Protein Urine Negative (Negative); Urobilinogen Urine Negative mg/dL (<2.0)
[2020-02-01 14:56] LABS: Specific Grav Ur 1.004 (1.001-1.035)
[2020-02-01 14:59] LABS: Alanine Aminotransferase 83 U/L (4-50); Albumin Level 4.2 g/dL (3.5-5.1); Alkaline Phosphatase 112 U/L (38-126); Anion Gap 11.3 mmol/L (7-16); Aspartate Amino Transferase 60 U/L (17-59); Bilirubin,Total 0.6 mg/dL (0.2-1.3); Blood Urea Nitrogen 15 mg/dL (9-20); Calcium 8.9 mg/dL (8.4-10.2); Carbon Dioxide 22 mmol/L (22-30); Chloride 107 mmol/L (98-107); Estimated CRCL calculation 53 ml/min; Estimated Glomerular Filt Rate > 60; Glucose 97 mg/dL (75-110); Potassium 4.3 mmol/L (3.4-5.0); Sodium 136 mmol/L (137-145)
[2020-02-01 15:00] LABS: INR 0.9; Partial Thromboplastin Time 23.5 SECONDS (22.3-36.8); Prothrombin Time 12.2 Seconds (11.1-14.7)
[2020-02-01 15:16] LABS: Troponin I 0.053 ng/mL (0.000-0.034)
[2020-02-01] MEDS: SODIUM CHLORIDE 0.9% IV 1,000 ML 999 ML IV CONT (15:30)
--- NOTE | 2020-02-01 15:59 | PC.NURSE ---
pt ambulatory to side of bed to use a urinal at this time.
[2020-02-01] MEDS: amLODIPine BESYLATE 5 MG TABLET PO (17:23)
[2020-02-01] MEDS: ACETAMINOPHEN 500 MG TABLET 1000 MG PO (18:09)
== END 2020-02-01 19:43 | disposition home or self-care (01) ==
PROVIDERS: Emergency Provider Emergency Medicine; PCP Family Medicine
DX: R53.1 Weakness (principal); I12.9 Hypertensive chronic kidney disease with stage 1 through stage 4 chronic kidney disease, or unspecified chronic kidney disease; N18.3 Chronic kidney disease, stage 3 (moderate); Z86.73 Personal history of transient ischemic attack (TIA), and cerebral infarction without residual deficits; E78.5 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, unspecified; G47.33 Obstructive sleep apnea (adult) (pediatric); E55.9 Vitamin D deficiency, unspecified; Z95.0 Presence of cardiac pacemaker; Z98.42 Cataract extraction status, left eye; Z98.41 Cataract extraction status, right eye
CPT/HCPCS: 36415; 70450; 71045; 80053; 81001; 84484; 85025; 85610; 85730; 93005; 96360; 99284; A9270; J7030

== ENCOUNTER 2020-02-03 19:21 | Emergency (ER) | payer MEDICARE, SELFPAY ==
--- NOTE | 2020-02-03 19:25 | ECG_ITS ---
Measurements Intervals [place] Rate: 92 P: 153 AL: 147 QRS: 146 QRSD: 158 T: -36 QT: 409 QTc: 507 Interpretive Statements ATRIAL SENSE- ELECTRONIC VENTRICULAR PACEMAKER BASELINE ARTIFACT- I, II, III, AVL, AVF NO FURTHER INTERPRETATION IS POSSIBLE ATYPICAL ECG Electronically Signed On 02-03-2020 21:03:47 CDT by Naman Dee D.O.
[2020-02-03 19:30] VITALS: BP 149/63; PULSE 99; RESP 17; TEMP 36.8; O2SAT 100
[2020-02-03 19:48] LABS: Basophils Absolute Auto 0.1 K/mm3 (0.0-0.1); Basophils Percent Auto 0.8 % (0.2-1.2); Eosinophils Absolute Auto 0.8 K/mm3 (0-0.3); Eosinophils Percent Auto 6.7 % (0-4.4); Hematocrit 41.1 % (42.0-52.0); Hemoglobin 14.1 g/dL (14.0-18.0); Immature Granulocyte Absolute 0.03 K/mm3 (0.00-0.031); Immature Granulocyte Percent A 0.3 % (0-0.5); Lymphocytes Absolute Auto 1.43 K/mm3 (0.9-3.2); Lymphocytes Percent Auto 12.7 % (18.3-44.2); Mean Corpuscular HGB Conc 34.3 g/dl (32-36); Mean Corpuscular Hemoglobin 30.5 pg (26-34); Mean Platelet Volume 10.1 fl (7.4-10.4); Monocytes Percent Auto 8.6 % (2.6-8.5); Neutrophils Percent Auto 70.9 % (45.5-73.1); Platelet Count Result 263 k/mm3 (150-375); Red Blood Count 4.62 M/mm3 (4.6-6.20); Red Cell Distribution Width 13.4 % (11.5-14.5); White Blood Count 11.3 K/mm3 (4.5-10.0)
[2020-02-03 19:59] LABS: Alanine Aminotransferase 110 U/L (4-50); Albumin Level 4.3 g/dL (3.5-5.1); Alkaline Phosphatase 111 U/L (38-126); Anion Gap 13.9 mmol/L (7-16); Aspartate Amino Transferase 60 U/L (17-59); Bilirubin,Total 0.5 mg/dL (0.2-1.3); Blood Urea Nitrogen 16 mg/dL (9-20); Calcium 9.3 mg/dL (8.4-10.2); Carbon Dioxide 22 mmol/L (22-30); Chloride 105 mmol/L (98-107); Estimated CRCL calculation 45 ml/min; Estimated Glomerular Filt Rate 54; Glucose 129 mg/dL (75-110); Potassium 3.9 mmol/L (3.4-5.0); Sodium 137 mmol/L (137-145)
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
[2020-02-03 22:21] VITALS: BP 182/74; PULSE 88; RESP 16; O2SAT 97
== END 2020-02-03 22:22 | disposition home or self-care (01) ==
LOC: ANHED 22:11
PROVIDERS: Emergency Medicine; Emergency Provider Emergency Medicine; PCP Family Medicine
DX: R42 Dizziness and giddiness (principal); I12.9 Hypertensive chronic kidney disease with stage 1 through stage 4 chronic kidney disease, or unspecified chronic kidney disease; N18.3 Chronic kidney disease, stage 3 (moderate); Z86.73 Personal history of transient ischemic attack (TIA), and cerebral infarction without residual deficits; E78.5 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, unspecified; G47.33 Obstructive sleep apnea (adult) (pediatric); E55.9 Vitamin D deficiency, unspecified; I65.22 Occlusion and stenosis of left carotid artery; Z98.42 Cataract extraction status, left eye; Z98.41 Cataract extraction status, right eye; Z96.1 Presence of intraocular lens; Z95.810 Presence of automatic (implantable) cardiac defibrillator
CPT/HCPCS: 36415; 80053; 85025; 93005; 99283

== ENCOUNTER 2020-02-09 16:48 | Emergency (ER) | payer MEDICARE, SELFPAY ==
--- NOTE | ~2020-02-09 | XR_ITS ---
EXAMINATION: XR chest 2V 02/09/2020 17:31 INDICATION: Hypertension. Weakness. Shortness of breath PROCEDURE: AP and lateral views of the chest COMPARISON: Comparison to multiple prior studies sequentially, with oldest reviewed study dated 01/21. FINDINGS: The lungs are clear. The cardiomediastinal silhouette is within normal limits. There are no pleural effusions. There is no pneumothorax suspected. Sequential pacemaker leads in the right a trium and right ventricle respectively. IMPRESSION: 1: NO ACUTE CARDIOPULMONARY DISEASE. Reviewed, dictated and finalized at location A.
[2020-02-09 16:47] VITALS: BP 150/76; PULSE 92; RESP 13; TEMP 36.9; O2SAT 97
--- NOTE | 2020-02-09 16:54 | ECG_ITS ---
Measurements Intervals [place] Rate: 82 P: 66 [place]: 161 QRS: 86 QRSD: 160 T: -82 QT: 421 QTc: 495 Interpretive Statements ATRIAL SENSE- ELECTRONIC VENTRICULAR PACEMAKER POSSIBLE LEFT ATRIAL ENLARGEMENT BASELINE ARTIFACT- II, III, AVF NO FURTHER INTERPRETATION IS POSSIBLE ATYPICAL ECG Electronically Signed On 02-09-2020 19:48:36 CDT by Naman Dee D.O.
[2020-02-09 17:10] LABS: Basophils Absolute Auto 0.1 K/mm3 (0.0-0.1); Basophils Percent Auto 0.9 % (0.2-1.2); Eosinophils Absolute Auto 0.4 K/mm3 (0-0.3); Eosinophils Percent Auto 4.2 % (0-4.4); Hemoglobin 14.4 g/dL (14.0-18.0); Immature Granulocyte Absolute 0.04 K/mm3 (0.00-0.031); Immature Granulocyte Percent A 0.4 % (0-0.5); Lymphocytes Absolute Auto 1.64 K/mm3 (0.9-3.2); Lymphocytes Percent Auto 16.3 % (18.3-44.2); Mean Corpuscular HGB Conc 34.3 g/dl (32-36); Mean Corpuscular Hemoglobin 30.2 pg (26-34); Mean Corpuscular Volume 88.1 fl (80-100); Mean Platelet Volume 10.3 fl (7.4-10.4); Monocytes Absolute Auto 1.1 K/mm3 (0.1-0.6); Monocytes Percent Auto 10.5 % (2.6-8.5); Neutrophils Absolute Auto 6.8 K/mm3 (1.3-6.7); Neutrophils Percent Auto 67.7 % (45.5-73.1); Platelet Count Result 315 k/mm3 (150-375); Red Blood Count 4.77 M/mm3 (4.6-6.20); Red Cell Distribution Width 13.9 % (11.5-14.5); White Blood Count 10.1 K/mm3 (4.5-10.0)
[2020-02-09 17:13] LABS: Add Urine Microscopic? YES; Appearance Urine Clear (Clear); Bilirubin Urine Negative (Negative); Blood Urine Negative (Negative); Color Urine Straw (Yellow); Glucose Urine UA Negative (Negative); Ketones Urine Negative (Negative); Leukocyte Esterase Ur Negative LEU/UL (Negative); Mucus Urine Rare /lpf; Nitrate Urine Negative (Negative); Protein Urine Negative (Negative); Specific Grav Ur 1.008 (1.001-1.035); Urobilinogen Urine Negative mg/dL (<2.0); WBC Urine 0-3 /hpf
[2020-02-09 17:21] LABS: Alanine Aminotransferase 118 U/L (4-50); Albumin Level 4.3 g/dL (3.5-5.1); Alkaline Phosphatase 116 U/L (38-126); Anion Gap 13.2 mmol/L (7-16); Aspartate Amino Transferase 53 U/L (17-59); Bilirubin,Total 0.4 mg/dL (0.2-1.3); Blood Urea Nitrogen 19 mg/dL (9-20); Calcium 9.3 mg/dL (8.4-10.2); Carbon Dioxide 22 mmol/L (22-30); Chloride 106 mmol/L (98-107); Estimated CRCL calculation 49 ml/min; Estimated Glomerular Filt Rate 59; Glucose 98 mg/dL (75-110); Potassium 4.2 mmol/L (3.4-5.0); Sodium 137 mmol/L (137-145)
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
[2020-02-09 18:04] LABS: Troponin I 0.043 ng/mL (0.000-0.034)
[2020-02-09 18:27] VITALS: BP 116/43; PULSE 81; RESP 28; O2SAT 99
[2020-02-09 19:04] VITALS: BP 144/70; PULSE 80; RESP 19; O2SAT 98
[2020-02-09 19:45] VITALS: BP 153/80; PULSE 80; RESP 19; O2SAT 100
[2020-02-09 19:56] VITALS: BP 147/88; PULSE 80; RESP 19; TEMP 36.3; O2SAT 100
== END 2020-02-09 20:06 | disposition home or self-care (01) ==
PROVIDERS: Emergency Medicine; Emergency Provider Nurse Practitioner; PCP Family Medicine
DX: R42 Dizziness and giddiness (principal); I25.10 Atherosclerotic heart disease of native coronary artery without angina pectoris; I12.9 Hypertensive chronic kidney disease with stage 1 through stage 4 chronic kidney disease, or unspecified chronic kidney disease; N18.3 Chronic kidney disease, stage 3 (moderate); Z86.73 Personal history of transient ischemic attack (TIA), and cerebral infarction without residual deficits; E78.5 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, unspecified; E55.9 Vitamin D deficiency, unspecified; Z95.0 Presence of cardiac pacemaker; R94.31 Abnormal electrocardiogram [ECG] [EKG]
CPT/HCPCS: 36415; 71046; 80053; 81001; 84484; 85025; 93005; 99284

== ENCOUNTER 2020-02-29 19:00 | Emergency (ER) | payer MEDICARE, SELFPAY ==
--- NOTE | ~2020-02-29 | CT_ITS ---
EXAMINATION: CT brain wo con DATE: 02/29/2020 19:38 INDICATION: Dizziness, lightheadedness and facial numbness TECHNIQUE: Computed tomography (CT) of the head was performed without intravenous contrast. Sagittal and coronal reconstructions were performed. The mA was adjusted according to patient size. Iterative reconstruction technique was employed. The dose-length product was 605.33 mGy-cm. COMPARISON: head CT dated 02/01/2020 FINDINGS: Again seen is encephalomalacia consistent with old infarct in the left insula and left parietal lobe. No acute intracranial hemorrhage, acute infarction or abnormal extra axial fluid collection. Ventric les are normal and symmetric. No mass/mass effect. Changes of bilateral intraocular lens replacement. The orbits, paranasal sinuses and mastoid air cells are normal. IMPRESSION: 1. Old infarct involving the left insula and left parietal lobe. No acute intracranial process. Reviewed, dictated and finalized at location A. IMPRESSION: 1. Old infarct involving the left insula and left parietal lobe. No acute intra cranial process.
--- NOTE | ~2020-02-29 | XR_ITS ---
EXAMINATION: XR chest 1V portable DATE: 02/29/2020 19:44 INDICATION: Weakness and dizziness TECHNIQUE: frontal view of the chest was obtained. COMPARISON: Chest radiograph dated 02/09/2020 FINDINGS: The lungs remain clear with no focal airspace opacities, pulmonary edema, pleural effusion or pneumot horax. The cardiomediastinal silhouette is normal. Dual lead pacemaker seen with leads projecting ove r the expected locations of the right atrium and right ventricular outflow tract. Moderate to severe right glenohumeral osteoarthritis. IMPRESSION: 1. No acute cardiopulmonary disease. Reviewed, dictated and finalized at location A.
[2020-02-29 19:08] VITALS: BP 186/109; PULSE 85; RESP 17; TEMP 36.6; O2SAT 98
--- NOTE | 2020-02-29 19:12 | ECG_ITS ---
Measurements Intervals [place] Rate: 87 P: 67 CT: 163 QRS: 93 QRSD: 166 T: -76 QT: 413 QTc: 498 Interpretive Statements ATRIAL SENSE- ELECTRONIC VENTRICULAR PACEMAKER POSSIBLE LEFT ATRIAL ENLARGEMENT BASELINE ARTIFACT- II, III, AVR, AVL, AVF, V4-V6 NO FURTHER INTERPRETATION IS POSSIBLE ATYPICAL ECG Electronically Signed On 02-29-2020 19:39:13 CDT by Naman Dee D.O.
[2020-02-29 19:18] VITALS: BP 186/109; PULSE 76; RESP 22; O2SAT 98
[2020-02-29 19:48] LABS: Basophils Absolute Auto 0.1 K/mm3 (0.0-0.1); Basophils Percent Auto 0.6 % (0.2-1.2); Eosinophils Absolute Auto 0.5 K/mm3 (0-0.3); Eosinophils Percent Auto 4.2 % (0-4.4); Hematocrit 43.5 % (42.0-52.0); Hemoglobin 14.9 g/dL (14.0-18.0); Immature Granulocyte Absolute 0.03 K/mm3 (0.00-0.031); Immature Granulocyte Percent A 0.3 % (0-0.5); Lymphocytes Absolute Auto 2.05 K/mm3 (0.9-3.2); Mean Corpuscular HGB Conc 34.3 g/dl (32-36); Mean Corpuscular Hemoglobin 30.3 pg (26-34); Mean Corpuscular Volume 88.6 fl (80-100); Mean Platelet Volume 10.8 fl (7.4-10.4); Monocytes Percent Auto 9.6 % (2.6-8.5); Neutrophils Absolute Auto 7.2 K/mm3 (1.3-6.7); Neutrophils Percent Auto 66.3 % (45.5-73.1); Platelet Count Result 295 k/mm3 (150-375); Red Blood Count 4.91 M/mm3 (4.6-6.20); Red Cell Distribution Width 13.4 % (11.5-14.5); White Blood Count 10.8 K/mm3 (4.5-10.0)
[2020-02-29 19:59] LABS: INR 0.9; Partial Thromboplastin Time 26.9 SECONDS (22.3-36.8); Prothrombin Time 12.2 Seconds (11.1-14.7)
[2020-02-29 20:00] LABS: Anion Gap 9 mmol/L (8-16); Blood Urea Nitrogen 23 mg/dL (9-20); Calcium 9.7 mg/dL (8.4-10.2); Carbon Dioxide 23 mmol/L (22-30); Chloride 105 mmol/L (98-107); Estimated CRCL calculation 37 ml/min; Estimated Glomerular Filt Rate 43; Glucose 101 mg/dL (75-110); Potassium 4.2 mmol/L (3.4-5.0); Sodium 137 mmol/L (137-145)
[2020-02-29 20:13] LABS: Troponin I 0.041 ng/mL (0.000-0.034)
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
[2020-02-29 20:38] VITALS: BP 160/68; PULSE 81; RESP 20; O2SAT 98
[2020-02-29] MEDS: LORazepam 0.5 MG TABLET 1 MG PO (20:38)
[2020-02-29 21:38] VITALS: BP 144/65; PULSE 80; RESP 20; O2SAT 96
[2020-02-29 22:00] VITALS: BP 144/65; PULSE 80; RESP 20; O2SAT 98
== END 2020-02-29 22:06 | disposition home or self-care (01) ==
PROVIDERS: Emergency Provider Emergency Medicine; PCP Family Medicine
DX: F43.22 Adjustment disorder with anxiety (principal); R20.2 Paresthesia of skin; I12.9 Hypertensive chronic kidney disease with stage 1 through stage 4 chronic kidney disease, or unspecified chronic kidney disease; N18.3 Chronic kidney disease, stage 3 (moderate); Z86.73 Personal history of transient ischemic attack (TIA), and cerebral infarction without residual deficits; E78.5 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, unspecified; E55.9 Vitamin D deficiency, unspecified; Z95.0 Presence of cardiac pacemaker; Z98.42 Cataract extraction status, left eye; Z98.41 Cataract extraction status, right eye; Z96.1 Presence of intraocular lens; Z79.82 Long term (current) use of aspirin; R94.31 Abnormal electrocardiogram [ECG] [EKG]
CPT/HCPCS: 36415; 70450; 71045; 80048; 84484; 85025; 85610; 85730; 93005; 99284; A9270

== ENCOUNTER 2020-03-19 02:22 | Outpatient (CLI) | payer MEDICARE, SELFPAY ==
[2020-03-19 19:20] LABS: SARS-CoV-2 RNA PCR Negative
== END 2020-03-19 02:23 | disposition home or self-care (01) ==
LOC: ANHCOVIDDT 02:23
PROVIDERS: PCP Family Medicine; Visit Provider Internal Medicine Critical Care Medicine
DX: R09.89 Other specified symptoms and signs involving the circulatory and respiratory systems (principal); Z20.828 Contact with and (suspected) exposure to other viral communicable diseases
CPT/HCPCS: 87635; C9803; U0003

== ENCOUNTER 2020-03-21 07:48 | Outpatient (CLI) | payer MEDICARE, SELFPAY ==
--- NOTE | 2020-04-14 06:16 | SLEEP_ITS ---
Split-Night Sleep Study. DATE OF STUDY: 03/21/2020 ORDERING PHYSICIAN: Pedro Bird M.D. REASON FOR THE STUDY: Poor quality sleep, excessive daytime sleepiness. HISTORY: This patient is a 74-year-old man, 69 inches tall, weighing 173.4 pounds. He has a history of poor quality sleep with frequent nighttime awakenings. This has been going on several years. His son has sleep apnea. The patient occasionally awakens from sleep feeling short of breath, does not awaken at night with heartburn, belching, or coughing. He occasionally snores, but says it is never loud enough that others complain about it. He occasionally has trouble sleeping with a cold, occasionally gasps for breath at night, frequently has breathing problems at night observed by others. He does not sweat excessively at night or notice his heart pounding or beating irregularly at night. He occasionally falls asleep during the day, occasionally involuntarily, never while driving and never with physical effort. He does not have loss of muscle tone with strong emotion, does not have daytime difficulties due to excessive sleepiness and does not feel paralyzed on waking or falling asleep. He does not have vivid dreamlike scenes upon awakening or falling asleep. He is never afraid to go to sleep. He denies nightmares. He occasionally remembers his dreams occasionally, has racing thoughts. He denies feeling sad or depressed. He occasionally has anxiety, muscular tension, notices parts of his body jerking and occasionally kicks at night. He does not have crawly achy feelings in his legs before sleep and does not have leg pain during the night. He denies morning jaw pain and denies grinding his teeth during sleep. He is not bothered by pain during the day and is not awakened by pain during the night. He occasionally wakes up feeling stiff in the morning, rarely with sore achy muscles, never with pain in the neck and spine. He has dizziness and fatigue. He sometimes takes naps. A short nap can be refreshing. Most of the time, he feels okay in the morning, but can be drowsy for 3 hours or longer. Normal bedtime is 11:00 p.m., falling asleep within a 0.5 hour, waking 4-5 times at night, anywhere between 5 and 10 minutes to go to the bathroom. He wakes in the morning at 07:30 a.m. He is in bed for 8.5 hours, but estimates only 4 hours of sleep at night. On the weekends, he goes to bed at midnight. 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 MEDICATIONS: 1. Hydralazine 50 mg twice a day. 2. Amlodipine 5 mg a day. 3. Lisinopril 40 mg a day. 4. Atorvastatin once a day. 5. Montelukast 10 mg a day. 6. Lorazepam 0.5 mg as needed for anxiety. HABITS: Never smoked tobacco. Caffeine, 2 sodas per day. No alcohol or recreational drugs. DESCRIPTION OF THE STUDY: On the [place] Sleepiness Scale, his score is 7. This was conducted as a split night study using the [employer] multiple channel system including EOG, EEG, submental EMG, EKG, nasal and oral airflow using thermistors and nasal pressure sensors, chest and abdominal belts, body position data and pulse oximetry. The study was scored using CMS guidelines. On the baseline portion, duration was 216.9 minutes. Sleep time was 153.5 minutes. Sleep time was 195.3 minutes. Sleep efficiency was 70.8%. Sleep latency was normal 21.6 minutes. REM latency was 163 minutes. He had 10 awakenings and spent 41.8 minutes awake after sleep onset. Sleep architecture showed 7.5% stage 1 sleep, 75.9% stage 2 sleep, no stage 3 sleep and 16.6% stage REM. He spent no time supine during the baseline portion. He had 1 REM episode. The apnea-hypopnea
== END 2020-03-21 07:49 | disposition home or self-care (01) ==
LOC: ANHCSM 07:49
PROVIDERS: PCP Family Medicine; Visit Provider Family Medicine
DX: G47.33 Obstructive sleep apnea (adult) (pediatric) (principal); R40.0 Somnolence; R29.818 Other symptoms and signs involving the nervous system
CPT/HCPCS: 72125; 95811

== ENCOUNTER 2020-03-21 10:52 | Outpatient (CLI) | payer MEDICARE, SELFPAY ==
--- NOTE | ~2020-03-21 | CT_ITS ---
EXAMINATION: CT cervical spine wo con DATE: 03/21/2020 12:12 INDICATION: Numbness in the arms and legs. Paresthesia of skin. TECHNIQUE: Computed tomography (CT) of the cervical spine was performed without intravenous contrast. Automated exposure control and iterative reconstruction technique were employed. The dose-length pro duct was 513.25 mGy-cm. COMPARISON: None FINDINGS: There is 8 degrees dextrocurvature of cervical spine. There is 3 mm retrolisthesis of C3 on C4 and C5 on C6. There is 2 mm anterolisthesis of C4 on C5. Vertebral body heights are normal. There is mildly decreased disc height at C2-C3, severely decreased disc height at C3-C4, mildly decreased disc height at C4-C5, and severely decreased disc height from C5-C6 through C7-T1. The following disc levels are specifically discussed: C2-C3: There is severe right and mild left uncovertebral joint osteoarthritis. There is severe bilate ral facet joint osteoarthritis. There is mild bilateral neural foraminal stenosis. There is mild cent ral canal stenosis. C3-C4: There is severe bilateral uncovertebral joint osteoarthritis. There is moderate right and jamee re left facet joint osteoarthritis. There is moderate bilateral neural foraminal stenosis. There is m ild central canal stenosis. C4-C5: There is mild bilateral uncovertebral joint osteoarthritis. There is severe bilateral facet katerin int osteoarthritis. There is mild bilateral neural foraminal stenosis. There is mild central canal st enosis. C5-C6: There is severe bilateral uncovertebral joint osteoarthritis. There is moderate right and mild left facet joint osteoarthritis. There is moderate right and mild left neural foraminal stenosis. Th ere is mild central canal stenosis. C6-C7: There is severe bilateral uncovertebral joint osteoarthritis. There is mild bilateral facet katerin int osteoarthritis. There is mild bilateral neural foraminal stenosis. There is mild central canal st enosis. C7-T1: There is severe bilateral uncovertebral joint osteoarthritis. There is severe bilateral facet joint osteoarthritis. There is mild bilateral neural foraminal stenosis. There is mild central canal stenosis. IMPRESSION: 1. Severe cervical spondylosis. Reviewed, dictated and finalized at location A.
== END 2020-03-21 10:53 | disposition home or self-care (01) ==
PROVIDERS: PCP Family Medicine; Visit Provider Psychiatry & Neurology Neurology
DX: R20.2 Paresthesia of skin (principal); M47.892 Other spondylosis, cervical region
CPT/HCPCS: 72125

== ENCOUNTER 2020-04-05 13:09 | Emergency (ER) | payer MEDICARE, SELFPAY ==
--- NOTE | ~2020-04-05 | CT_ITS ---
EXAMINATION: CT brain wo con DATE: 04/05/2020 15:00 INDICATION: Dizziness. Lightheadedness. TECHNIQUE: Computed tomography (CT) of the head was performed without intravenous contrast. The dose- length product was 605.33 mGy-cm. Automated exposure control and iterative reconstruction technique w ere employed. COMPARISON: CT dated 02/29/2020 FINDINGS: Chronic left parietal infarction. No acute intracranial hemorrhage, infarction, mass or mas s effect. No ventriculomegaly or midline shift. There is intracranial atherosclerosis. Paranasal sinu ses and mastoids are pneumatized. Basilar cisterns are patent. IMPRESSION: 1. No acute intracranial abnormality. 2: Chronic left parietal infarction. Reviewed, dictated and finalized at location A.
--- NOTE | ~2020-04-05 | CT_ITS ---
EXAMINATION: CTA chest PE protocol DATE: 04/05/2020 16:10 INDICATION: Shortness of breath TECHNIQUE: Computed tomography angiography (CTA) of the chest was performed with 100 mL Omnipaque-350 intravenous contrast timed to evaluate the pulmonary arteries. Coronal maximum intensity projection 3D-reconstructions were created by the technologist. The dose-length product (DLP) was 712.39 mGy-cm. Automated exposure control and iterative reconstruction technique were employed. COMPARISON: None. FINDINGS: The pulmonary arteries are well-opacified. Respiratory motion artifact somewhat limits eval uation of subsegmental pulmonary arterial branches in the lower lobes however, no pulmonary embolism is seen. There is no pleural effusion or pneumothorax. There appear to be changes of left hemithyroid ectomy. There is mild dependent atelectasis. Cardiomegaly is noted. There is mild bilateral hilar lym phadenopathy, likely reactive. There is mild thoracic spondylosis. IMPRESSION: 1. No pulmonary embolism identified, sensitivity in subsegmental pulmonary arterial branches of the l ower lobes is limited by respiratory motion artifact. Reviewed, dictated and finalized at location A. IMPRESSION: 1. No pulmonary embolism identified, sensitivity in subsegmental pulmonary lisa rial branches of the lower lobes is limited by respiratory motion artifact.
--- NOTE | ~2020-04-05 | XR_ITS ---
XR chest 2V 04/05/2020 13:43 Indication: Shortness of breath. Procedure: 2 view chest Comparison: Comparison to multiple prior studies sequentially, with oldest reviewed study dated 01/24. Findings: Heart size normal. Pacemaker leads are in expected position. No focal air space disease, pu lmonary edema, pleural effusion or suspected pneumothorax. No acute osseous abnormality. Impression: 1: No acute cardiopulmonary disease. Reviewed, dictated and finalized at location A. Impression: 1: No acute cardiopulmonary disease.
[2020-04-05 13:24] VITALS: BP 105/59; PULSE 97; RESP 24; TEMP 36.1; O2SAT 100
--- NOTE | 2020-04-05 13:34 | ECG_ITS ---
Measurements Intervals [place] Rate: 76 P: 53 [place]: 180 QRS: 86 QRSD: 146 T: -61 QT: 411 QTc: 465 Interpretive Statements ATRIAL SENSE- ELECTRONIC VENTRICULAR PACEMAKER BASELINE ARTIFACT- II, III, AVL, AVF NO FURTHER INTERPRETATION IS POSSIBLE ATYPICAL ECG Electronically Signed On 04-05-2020 17:03:08 CDT by Naman Dee D.O.
[2020-04-05 13:47] LABS: Basophils Absolute Auto 0.1 K/mm3 (0.0-0.1); Basophils Percent Auto 0.7 % (0.2-1.2); Eosinophils Absolute Auto 0.6 K/mm3 (0-0.3); Eosinophils Percent Auto 5.4 % (0-4.4); Hematocrit 42.9 % (42.0-52.0); Hemoglobin 14.7 g/dL (14.0-18.0); Immature Granulocyte Absolute 0.04 K/mm3 (0.00-0.031); Immature Granulocyte Percent A 0.4 % (0-0.5); Lymphocytes Absolute Auto 1.66 K/mm3 (0.9-3.2); Lymphocytes Percent Auto 15.9 % (18.3-44.2); Mean Corpuscular HGB Conc 34.3 g/dl (32-36); Mean Corpuscular Hemoglobin 30.2 pg (26-34); Mean Corpuscular Volume 88.3 fl (80-100); Mean Platelet Volume 10.5 fl (7.4-10.4); Monocytes Percent Auto 9.2 % (2.6-8.5); Neutrophils Absolute Auto 7.2 K/mm3 (1.3-6.7); Neutrophils Percent Auto 68.4 % (45.5-73.1); Platelet Count Result 273 k/mm3 (150-375); Red Blood Count 4.86 M/mm3 (4.6-6.20); Red Cell Distribution Width 12.9 % (11.5-14.5); White Blood Count 10.5 K/mm3 (4.5-10.0)
[2020-04-05 14:04] LABS: Anion Gap 8 mmol/L (8-16); Blood Urea Nitrogen 15 mg/dL (9-20); Calcium 9.6 mg/dL (8.4-10.2); Carbon Dioxide 23 mmol/L (22-30); Chloride 106 mmol/L (98-107); Estimated CRCL calculation 49 ml/min; Estimated Glomerular Filt Rate 59; Glucose 127 mg/dL (75-110); Sodium 137 mmol/L (137-145)
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
[2020-04-05 14:32] VITALS: BP 150/86; PULSE 70; RESP 20; O2SAT 99
[2020-04-05 14:37] LABS: D Dimer 0.57 ug/mL (<0.48)
[2020-04-05 14:41] LABS: NT Pro B Type Natriuretic Pept 1170 PG/ML (5-100); Troponin I 0.047 ng/mL (0.000-0.034)
[2020-04-05 15:50] VITALS: BP 137/79; PULSE 93; RESP 20; O2SAT 99
[2020-04-05 16:16] VITALS: BP 163/68; PULSE 80; RESP 20; O2SAT 99
[2020-04-05] MEDS: ASPIRIN 81 MG CHEWABLE TABLET 324 MG PO (17:07)
[2020-04-05 18:06] LABS: Troponin I 0.044 ng/mL (0.000-0.034)
[2020-04-05 18:07] VITALS: BP 158/81; PULSE 76; RESP 20; O2SAT 96
[2020-04-05 18:30] VITALS: BP 158/71; PULSE 76; RESP 20; O2SAT 96
== END 2020-04-05 18:35 | disposition home or self-care (01) ==
PROVIDERS: Emergency Medicine; Emergency Provider Emergency Medicine; PCP Family Medicine
DX: R06.00 Dyspnea, unspecified (principal); R42 Dizziness and giddiness; R79.89 Other specified abnormal findings of blood chemistry; N18.9 Chronic kidney disease, unspecified; I12.9 Hypertensive chronic kidney disease with stage 1 through stage 4 chronic kidney disease, or unspecified chronic kidney disease; I65.22 Occlusion and stenosis of left carotid artery; E78.5 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, unspecified; G47.33 Obstructive sleep apnea (adult) (pediatric); E55.9 Vitamin D deficiency, unspecified; Z86.73 Personal history of transient ischemic attack (TIA), and cerebral infarction without residual deficits; Z95.0 Presence of cardiac pacemaker
CPT/HCPCS: 36415; 70450; 71046; 71275; 80048; 83880; 84484; 85025; 85380; 93005; 99284; A9270; Q9967

== ENCOUNTER 2020-05-24 00:42 | Outpatient (CLI) | payer MEDICARE, SELFPAY ==
[2020-05-24 21:18] LABS: SARS-CoV-2 RNA PCR Negative
== END 2020-05-24 00:43 | disposition home or self-care (01) ==
LOC: ANHCOVIDDT 00:43
PROVIDERS: PCP Family Medicine; Visit Provider Internal Medicine Critical Care Medicine
DX: Z01.812 Encounter for preprocedural laboratory examination (principal); Z20.828 Contact with and (suspected) exposure to other viral communicable diseases
CPT/HCPCS: 87635; C9803; U0003

== ENCOUNTER 2020-05-27 07:19 | Outpatient (CLI) | payer MEDICARE, SELFPAY ==
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
[2020-06-25 08:11] VITALS: BMI 27.3
== END 2020-05-27 07:20 | disposition home or self-care (01) ==
LOC: ANHCSM 07:20
PROVIDERS: PCP Family Medicine; Visit Provider Family Medicine
DX: G47.33 Obstructive sleep apnea (adult) (pediatric) (principal)
CPT/HCPCS: 95811

== ENCOUNTER 2020-07-19 04:53 | Outpatient (CLI) | payer MEDICARE, SELFPAY ==
[2020-07-19 19:32] LABS: SARS-CoV-2 RNA PCR Negative
== END 2020-07-19 04:54 | disposition home or self-care (01) ==
LOC: ANHCOVIDDT 04:53
PROVIDERS: PCP Family Medicine; Visit Provider Internal Medicine Critical Care Medicine
DX: R68.89 Other general symptoms and signs (principal); Z20.822 Contact with and (suspected) exposure to COVID-19
CPT/HCPCS: C9803; U0003

== ENCOUNTER 2020-08-04 00:38 | Outpatient (CLI) | payer MEDICARE, SELFPAY ==
[2020-08-04 18:26] LABS: SARS-CoV-2 RNA PCR Negative
== END 2020-08-04 00:39 | disposition home or self-care (01) ==
LOC: ANHCOVIDDT 00:39
PROVIDERS: PCP Family Medicine; Visit Provider Internal Medicine Critical Care Medicine
DX: Z01.812 Encounter for preprocedural laboratory examination (principal); Z20.822 Contact with and (suspected) exposure to COVID-19
CPT/HCPCS: C9803; U0003; U0005

== ENCOUNTER 2020-08-06 08:52 | Outpatient (CLI) | payer MEDICARE, SELFPAY ==
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
[2020-09-01 08:41] VITALS: BMI 27.3
== END 2020-08-06 08:53 | disposition home or self-care (01) ==
LOC: ANHCSM 08:52
PROVIDERS: PCP Family Medicine; Visit Provider Family Medicine
DX: G47.39 Other sleep apnea (principal)
CPT/HCPCS: 95811

== ENCOUNTER 2020-11-24 10:10 | Outpatient (CLI) | payer MEDICARE, SELFPAY ==
--- NOTE | ~2020-11-24 | US_ITS ---
US renal BI 11/24/2020 10:36 Procedure: Realtime transabdominal ultrasound of the kidneys and bladder. Indication: Stage II renal disease Comparison: 02/23/2019 Findings: Renal echotexture is normal bilaterally without hydronephrosis, contour deforming mass or r enal calculus. The right kidney measures 9.9 cm and left kidney measures 9.8 cm. Bladder within norm al limits. Prostate gland is enlarged measuring 6.4 x 4.8 x 4.9 cm. Impression: 1: Unremarkable renal ultrasound. No stones, masses or hydronephrosis. 2: Enlarged prostate gland. Reviewed, dictated and finalized at location A. Impression: 1: Unremarkable renal ultrasound. No stones, masses or hydronephrosis. 2: Enlarged prostate gland.
== END 2020-11-24 10:11 | disposition home or self-care (01) ==
LOC: ANHIMG 10:15
PROVIDERS: PCP Family Medicine; Visit Provider Internal Medicine Nephrology
DX: N18.32 Chronic kidney disease, stage 3b (principal); N40.0 Benign prostatic hyperplasia without lower urinary tract symptoms
CPT/HCPCS: 76775

== ENCOUNTER 2021-01-05 20:15 | Emergency (ER) | payer MEDICARE, SELFPAY ==
--- NOTE | ~2021-01-05 | CT_ITS ---
EXAMINATION: CT brain wo con EXAM DATE: 01/05/2021 22:52 INDICATION: Generalized weakness. Pacemaker placed 01/2020. Hypertension. TECHNIQUE: Spiral CT of the head was performed without contrast. Axial, coronal and sagittal images were reviewed. The dose-length product (DLP) for this examination was 605.33 mGy-cm. The exposure w as tailored according to patient size, and iterative reconstruction (ASIR) was used as additional dos e reduction technique. Comparison is made to prior examination from 04/05/2020. FINDINGS: Chronic small to moderate-sized left frontoparietal old infarction unchanged. Mild microang iopathy and cerebral atrophy. There is no acute intraparenchymal hemorrhage. No evidence of intrapar enchymal brain mass lesion. No evidence of acute infarction. There is no mass effect or midline claude ft. The ventricles are normal in size. There are no extra-axial collections. There are no acute ca lvarial fractures. Patient has had bilateral ocular lens surgery. Soft tissue is unremarkable. The visualized sinuses and mastoid air cells are well aerated. IMPRESSION: 1. No acute intracranial findings. 2. Old small to moderate left frontoparietal lobe infarction. 3. Mild senescent changes. Reviewed, dictated and finalized at location A.
--- NOTE | ~2021-01-05 | XR_ITS ---
EXAMINATION: XR chest 2V EXAM DATE: 01/05/2021 21:04 INDICATION: Hypertension. Pacemaker. TECHNIQUE: Frontal and lateral projections of the chest obtained and reviewed. Comparison is made to prior examination from 04/05/2020. FINDINGS: There is a dual lead pacemaker/AICD seen with leads projecting over the expected locations of the right atrial appendage and right ventricle. No confluent consolidation, pneumothorax or pleur al effusion suspected. Moderate right glenohumeral primary osteoarthritis. IMPRESSION: No acute cardiopulmonary findings. Reviewed, dictated and finalized at location A.
[2021-01-05 20:21] VITALS: BP 144/77; PULSE 81; RESP 18; TEMP 36.4; O2SAT 98
--- NOTE | 2021-01-05 20:26 | ECG_ITS ---
Measurements Intervals [place] Rate: 80 P: 10 VT: 150 QRS: 83 QRSD: 154 T: -65 QT: 414 QTc: 479 Interpretive Statements ATRIAL SENSE- ELECTRONIC VENTRICULAR PACEMAKER NO FURTHER INTERPRETATION IS POSSIBLE ATYPICAL ECG Electronically Signed On 01-05-2021 20:41:04 CDT by Naman Dee D.O.
[2021-01-05 20:51] LABS: Basophils Absolute Auto 0.1 K/mm3 (0.0-0.1); Basophils Percent Auto 0.9 % (0.2-1.2); Eosinophils Absolute Auto 0.3 K/mm3 (0-0.3); Eosinophils Percent Auto 3.3 % (0-4.4); Hematocrit 42.7 % (42.0-52.0); Hemoglobin 14.1 g/dL (14.0-18.0); Immature Granulocyte Absolute 0.03 K/mm3 (0.00-0.031); Immature Granulocyte Percent A 0.3 % (0-0.5); Lymphocytes Absolute Auto 1.64 K/mm3 (0.9-3.2); Lymphocytes Percent Auto 17.5 % (18.3-44.2); Mean Corpuscular Hemoglobin 29.1 pg (26-34); Mean Platelet Volume 11.2 fl (7.4-10.4); Monocytes Percent Auto 11.1 % (2.6-8.5); Neutrophils Absolute Auto 6.3 K/mm3 (1.3-6.7); Neutrophils Percent Auto 66.9 % (45.5-73.1); Platelet Count Result 244 k/mm3 (150-375); Red Blood Count 4.85 M/mm3 (4.6-6.20); Red Cell Distribution Width 13.9 % (11.5-14.5); White Blood Count 9.4 K/mm3 (4.5-10.0)
[2021-01-05 20:58] VITALS: PULSE 83
[2021-01-05 21:01] LABS: Alanine Aminotransferase 31 U/L (4-50); Albumin Level 4.4 g/dL (3.5-5.1); Alkaline Phosphatase 91 U/L (38-126); Anion Gap 11 mmol/L (8-16); Aspartate Amino Transferase 32 U/L (17-59); Bilirubin,Total 0.9 mg/dL (0.2-1.3); Blood Urea Nitrogen 24 mg/dL (9-20); Calcium 9.5 mg/dL (8.4-10.2); Carbon Dioxide 20 mmol/L (22-30); Chloride 108 mmol/L (98-107); Estimated CRCL calculation 38 ml/min; Estimated Glomerular Filt Rate 46; Glucose 103 mg/dL (75-110); Potassium 3.9 mmol/L (3.4-5.0); Sodium 139 mmol/L (137-145)
[2021-01-05 21:02] LABS: Add Urine Microscopic? NO; Appearance Urine Clear (Clear); Bilirubin Urine Negative (Negative); Blood Urine Negative (Negative); Color Urine Colorless (Yellow); Glucose Urine UA Negative (Negative); Ketones Urine Negative (Negative); Leukocyte Esterase Ur Negative LEU/UL (Negative); Nitrate Urine Negative (Negative); Protein Urine Negative (Negative); Specific Grav Ur 1.005 (1.001-1.035); Urobilinogen Urine Negative mg/dL (<2.0)
[2021-01-05 22:05] VITALS: BP 137/64; PULSE 75; RESP 25; O2SAT 94
--- NOTE | 2021-01-05 22:38 | ED.WEAKNESS ---
HPI - Weakness General Chief complaint: Weakness Stated complaint: weakness, difficulty breathing, feeling unwell Time Seen by Provider: 01/05/21 21:59 Source: patient Mode of arrival: ambulatory Limitations: no limitations History of Present Illness HPI Narrative: Patient is a 75-year-old male complaining of not feeling well , described as generalized weakness, nausea and dehydrated that started after eating dinner around 4 PM today. Patient states that he had similar episode last year, was given antianxiety medication. Patient took his antianxiety medication prior to arrival and states that he is now feeling better and currently asymptomatic. Patient denies any speech or visual disturbance, focal weakness or numbness, unsteady gait, chest pain, shortness of breath, abdominal pain, vomiting, diarrhea, fever or chills. Related Data Home Medications Medication Instructions Recorded Confirmed vit C 250 mg-vit E 90 mg-zinc 40 1 tablet PO BID 08/22/19 11/12/20 mg-copper 1 [id number] capsule multivitamin 1 tablet PO DAILY 02/04/20 11/12/20 cholecalciferol (vitamin D3) 10 10 mcg PO DAILY 03/04/20 11/12/20 mcg (400 unit) capsule nabumetone 500 mg tablet 500 mg PO BID 04/30/20 11/12/20 atorvastatin 40 mg tablet 40 mg PO DAILY tablet 11/12/20 11/12/20 hydralazine 50 mg tablet 50 mg PO TID tablet 11/12/20 11/12/20 montelukast 10 mg tablet 10 mg PO DAILY tablet 11/12/20 11/12/20 Allergies Allergy/AdvReac Type Severity Reaction Status Date / Time No Known Allergies Allergy Verified 01/05/21 20:25 Review of Systems Review of Systems: All systems reviewed & are unremarkable except as noted in HPI and below Constitutional: Constitutional: Denies body ache(s), Denies chills, Denies excessive sweating, Denies fatigue, Denies fever(s), Denies headache(s), Denies lethargy, Denies malaise and Denies weight loss Eyes: Eyes: Denies blurry vision, Denies change in vision and Denies loss of vision ENT: Denies dizziness, Denies ear discharge, Denies headache(s), Denies lip swelling, Denies epistaxis, Denies nasal congestion, Denies neck pain, Denies throat swelling and Denies tongue swelling Cardiovascular: Cardiovascular: Denies chest pain, Denies chest pain at rest, Denies chest pain with activity, Denies diaphoresis, Denies rapid heart rate, Denies edema, Denies irregular heart rhythm, Denies lightheadedness, Denies palpitations, Denies dyspnea and Denies dyspnea on exertion Respiratory: Respiratory: Denies chest congestion, Denies cough, Denies hemoptysis, Denies dyspnea and Denies dyspnea on exertion Gastrointestinal: Gastrointestinal: Denies abdominal pain, Denies melena, Denies hematochezia, Denies diarrhea, Denies vomiting and Denies hematemesis Musculoskeletal: Musculoskeletal: Denies abnormal gait, Denies deformity, Denies joint swelling, Denies limited range of motion, Denies neck pain and Denies numbness Neurologic: Denies Abnormal speech present, Denies abnormal gait, Denies confusion, Denies dizziness, Denies headache(s), Denies focal weakness, Denies loss of vision, Denies numbness, Denies Other visual disturbances and Denies Sensory deficit (Neuro) Psychiatric: Psychiatric: Denies confusion, Denies depression, Denies auditory hallucinations, Denies homicidal ideation and Denies suicidal ideation Endocrine: Endocrine: Denies cold intolerance, Denies excessive sweating, Denies fatigue, Denies heat intolerance and Denies palpitations Hematologic/Lymphatic: Hematologic/Lymphatic: Denies easy bleeding and Denies easy bruising Allergic/Immunologic: Allergic/Immunologic: Denies lip swelling, Denies throat swelling and Denies tongue swelling PMFSH Past Medical History Medical History Anxiety Carotid artery stenosis Chronic back pain CKD (chronic kidney disease) stage 3, GFR 30-59 ml/min Managed by Dr. Levi Garcia Essential (primary) hypertension History of CVA
[2021-01-05 22:59] VITALS: BP 128/60; PULSE 69; RESP 23; O2SAT 99
[2021-01-05 23:01] VITALS: BP 132/62; PULSE 68; RESP 29; O2SAT 95
--- NOTE | 2021-01-05 23:16 | PC.NURSE ---
Unsuccessful attempt at IV start, another nurse to attempt.
[2021-01-05] MEDS: SODIUM CHLORIDE 0.9% IV 1,000 ML 999 ML IV CONT (23:40)
[2021-01-06 00:01] VITALS: BP 145/62; RESP 19; O2SAT 98
[2021-01-06 00:38] VITALS: BP 139/63; PULSE 66; RESP 18; O2SAT 98
== END 2021-01-06 00:40 | disposition home or self-care (01) ==
PROVIDERS: Emergency Medicine; Emergency Provider Emergency Medicine; PCP Family Medicine
DX: I12.9 Hypertensive chronic kidney disease with stage 1 through stage 4 chronic kidney disease, or unspecified chronic kidney disease (principal); N18.30 Chronic kidney disease, stage 3 unspecified; R53.1 Weakness; R11.0 Nausea; Z86.73 Personal history of transient ischemic attack (TIA), and cerebral infarction without residual deficits
CPT/HCPCS: 36415; 70450; 71046; 80053; 81003; 85025; 93005; 96360; 99284; J7030

== ENCOUNTER 2021-01-07 09:35 | Outpatient (CLI) | payer MEDICARE, SELFPAY ==
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
== END 2021-01-07 09:36 | disposition home or self-care (01) ==
PROVIDERS: PCP Family Medicine; Visit Provider Psychiatry & Neurology Neurology
DX: G56.23 Lesion of ulnar nerve, bilateral upper limbs (principal)
CPT/HCPCS: 95886; 95913

== ENCOUNTER 2021-03-05 13:16 | Outpatient (CLI) | payer MEDICARE, SELFPAY ==
--- NOTE | ~2021-03-05 | US_ITS ---
EXAMINATION: US carotid duplex BI DATE: 03/05/2021 13:59 INDICATION: Occlusion and stenosis of the left carotid artery. TECHNIQUE: Grayscale, color Doppler, and pulsed Doppler images of the cervical carotid arteries were obtained. The degree of vessel stenosis is placed in one of the following categories: normal, <50%, 5 0-69%, >=70% but less than near-occlusion, near-occlusion, or total occlusion. Note that percent sten osis relative to normal distal artery lumen diameter is indirectly measured from velocity measurement s as described by Lex, et al. Radiology 2003; 229:340-346. COMPARISON: CT angiograms dated 01/18/2020 FINDINGS: RIGHT: The right common carotid artery (CCA) peak systolic velocity (PSV) is 95 cm/s. The right internal car otid artery (ICA) PSV is 239 cm/s. The right ICA end-diastolic velocity (EDV) is 78 cm/s. The right I CA/CCA PSV ratio is 2.5. Grayscale and color Doppler images yield an estimate of >=70% (but less than near occlusion) diameter reduction from plaque in the ICA. The external carotid artery (ECA) PSV is 164 cm/s. There is antegrade flow in the right vertebral artery. LEFT: The left CCA PSV is 102 cm/s with high resistance waveform. There is scattered atherosclerotic plaque along the left common carotid artery. The left ICA is occluded with no discernible flow on color Dop pler. The ECA PSV is 163 cm/s. There is antegrade flow in the left vertebral artery. IMPRESSION: 1. >=70% (but less than near occlusion) stenosis in the right internal carotid artery. 2. Complete occlusion of the left internal carotid artery. Reviewed, dictated and finalized at location B.
== END 2021-03-05 13:17 | disposition home or self-care (01) ==
PROVIDERS: PCP Family Medicine; Visit Provider Internal Medicine Cardiovascular Disease
DX: I65.23 Occlusion and stenosis of bilateral carotid arteries (principal)
CPT/HCPCS: 93880

== ENCOUNTER 2021-03-06 09:48 | Outpatient (CLI) | payer MEDICARE, SELFPAY ==
--- NOTE | ~2021-03-06 | CT_ITS ---
EXAMINATION: CT sinus wo con DATE: 03/06/2021 10:17 INDICATION: Chronic sinusitis TECHNIQUE: Computed tomography (CT) of the paranasal sinuses was performed without contrast. Iterativ e reconstruction technique was employed. Exam dose: 298.61 mGy-cm total exam DLP. COMPARISON: None FINDINGS: There is leftward deviation of the nasal septum. The nasal turbinates are symmetrically pro minent in size. Paradoxical right middle nasal turbinate There is intralamellar cell of the right middle nasal turbinate. There is So cell on the right, narrowing the right infundibulum, which is further compromised by infundibular soft tissue thickening. The left infundibulum is patent. There is bilateral ethmoid cell septal soft tissue thickening. The right frontal sinus is hypoplastic , with mild mucoperiosteal thickening. The remaining paranasal sinuses are normally developed and aer ated. The mastoid air cells are normally developed and aerated. IMPRESSION: Prominent leftward deviation of nasal septum Soft tissue prominence of the nasal turbinates Paradoxical right middle nasal turbinate Intralamellar cell of right middle nasal turbinate Right So cell, narrowing the infundibulum Soft tissue thickening within the right infundibulum Bilateral ethmoid septal soft tissue thickening Hypoplastic right frontal sinus with mild mucoperiosteal thickening Reviewed, dictated and finalized at Location A. Reviewed, dictated and finalized at location A.
== END 2021-03-06 09:49 | disposition home or self-care (01) ==
PROVIDERS: PCP Family Medicine; Visit Provider Allergy & Immunology
DX: J32.9 Chronic sinusitis, unspecified (principal); J34.2 Deviated nasal septum
CPT/HCPCS: 70486

== ENCOUNTER 2021-05-02 15:23 | Emergency (ER) | payer MEDICARE, SELFPAY ==
--- NOTE | ~2021-05-02 | XR_ITS ---
XR chest 2V DATE: 05/02/2021 16:02 INDICATION: Fatigue and weakness for 2 days. Pacemaker placed in 2020. TECHNIQUE: PA and lateral views COMPARISON: 01/05/2021 2 view chest FINDINGS: Left-sided dual-lead pacemaker device with leads overlying right atrium and right ventricle . Normal heart size. Aortic arch calcification. No hilar or mediastinal enlargement. No pleural effus ion or pulmonary vascular congestion or pneumothorax. Mild bilateral apical capping. No pulmonary infiltrate or consolidation. IMPRESSION: No active cardiopulmonary disease Dual-lead left-sided pacemaker Reviewed, dictated and finalized at location A.
[2021-05-02 15:33] VITALS: BP 127/72; PULSE 93; RESP 18; TEMP 36.4; O2SAT 97
--- NOTE | 2021-05-02 15:33 | ECG_ITS ---
Measurements Intervals [place] Rate: 85 P: 54 CA: 171 QRS: 78 QRSD: 157 T: -82 QT: 407 QTc: 485 Interpretive Statements ATRIAL SENSE- ELECTRONIC VENTRICULAR PACEMAKER BASELINE ARTIFACT- I, II, AVR NO FURTHER INTERPRETATION IS POSSIBLE ATYPICAL ECG Electronically Signed On 05-02-2021 23:41:12 CDT by Naman Dee D.O.
[2021-05-02 16:20] VITALS: BP 161/80; PULSE 83; RESP 18; TEMP 36.6; O2SAT 99
[2021-05-02 16:24] LABS: Basophils Absolute Auto 0.1 K/mm3 (0.0-0.1); Basophils Percent Auto 0.8 % (0.2-1.2); Eosinophils Absolute Auto 0.2 K/mm3 (0-0.3); Eosinophils Percent Auto 1.8 % (0-4.4); Hematocrit 43.6 % (42.0-52.0); Hemoglobin 14.7 g/dL (14.0-18.0); Immature Granulocyte Absolute 0.04 K/mm3 (0.00-0.031); Immature Granulocyte Percent A 0.4 % (0-0.5); Lymphocytes Percent Auto 16.2 % (18.3-44.2); Mean Corpuscular HGB Conc 33.7 g/dl (32-36); Mean Corpuscular Hemoglobin 30.3 pg (26-34); Mean Corpuscular Volume 89.9 fl (80-100); Mean Platelet Volume 10.5 fl (7.4-10.4); Monocytes Absolute Auto 0.8 K/mm3 (0.1-0.6); Monocytes Percent Auto 7.8 % (2.6-8.5); Neutrophils Absolute Auto 7.7 K/mm3 (1.3-6.7); Platelet Count Result 254 k/mm3 (150-375); Red Blood Count 4.85 M/mm3 (4.6-6.20); Red Cell Distribution Width 13.1 % (11.5-14.5); White Blood Count 10.5 K/mm3 (4.5-10.0)
[2021-05-02 16:26] LABS: Add Urine Microscopic? YES; Appearance Urine Clear (Clear); Bilirubin Urine Negative (Negative); Blood Urine Negative (Negative); Color Urine Straw (Yellow); Glucose Urine UA Negative (Negative); Ketones Urine Negative (Negative); Leukocyte Esterase Ur Negative LEU/UL (Negative); Nitrate Urine Negative (Negative); Protein Urine Negative (Negative); Specific Grav Ur 1.009 (1.001-1.035); Urobilinogen Urine Negative mg/dL (<2.0); WBC Urine 0-3 /hpf
[2021-05-02 16:30] VITALS: BP 160/73; PULSE 73
[2021-05-02 16:31] VITALS: BP 140/74; PULSE 80
[2021-05-02 16:33] VITALS: BP 143/70; PULSE 85
[2021-05-02 16:33] LABS: Alanine Aminotransferase 33 U/L (4-50); Albumin Level 4.4 g/dL (3.5-5.1); Alkaline Phosphatase 104 U/L (38-126); Anion Gap 9 mmol/L (8-16); Aspartate Amino Transferase 33 U/L (17-59); Bilirubin,Total 0.8 mg/dL (0.2-1.3); Blood Urea Nitrogen 21 mg/dL (9-20); Calcium 9.5 mg/dL (8.4-10.2); Carbon Dioxide 24 mmol/L (22-30); Chloride 107 mmol/L (98-107); Estimated CRCL calculation 43 ml/min; Estimated Glomerular Filt Rate 54; Glucose 100 mg/dL (65-110); Potassium 4.4 mmol/L (3.4-5.0); Sodium 140 mmol/L (137-145)
[2021-05-02] MEDS: ONDANSETRON INJ 4 MG/2 ML VIAL IV PUSH (16:49)
[2021-05-02] MEDS: SODIUM CHLORIDE 0.9% IV 1,000 ML 999 ML IV CONT (16:58)
[2021-05-02 17:27] LABS: Troponin I 0.015 ng/mL (0.000-0.034)
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
[2021-05-02 18:17] VITALS: BP 131/61; PULSE 67; RESP 18; O2SAT 98
== END 2021-05-02 18:25 | disposition home or self-care (01) ==
PROVIDERS: Emergency Medicine; Emergency Provider General Practice; PCP Family Medicine
DX: E86.0 Dehydration (principal); R53.1 Weakness; E78.5 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, unspecified; N18.30 Chronic kidney disease, stage 3 unspecified; I12.9 Hypertensive chronic kidney disease with stage 1 through stage 4 chronic kidney disease, or unspecified chronic kidney disease; Z86.73 Personal history of transient ischemic attack (TIA), and cerebral infarction without residual deficits; I65.29 Occlusion and stenosis of unspecified carotid artery; E87.5 Hyperkalemia; G47.33 Obstructive sleep apnea (adult) (pediatric); E55.9 Vitamin D deficiency, unspecified; Z95.0 Presence of cardiac pacemaker; Z98.42 Cataract extraction status, left eye; Z98.41 Cataract extraction status, right eye; Z96.1 Presence of intraocular lens
CPT/HCPCS: 36415; 71046; 80053; 81001; 84484; 85025; 93005; 96361; 96374; 99284; J2405; J7030

== ENCOUNTER 2021-05-21 10:25 | Emergency (ER) | payer MEDICARE, SELFPAY ==
--- NOTE | ~2021-05-21 | CT_ITS ---
EXAMINATION: CT brain wo con INDICATION: Left-sided facial and arm numbness COMPARISON: 01/05/2021 TECHNIQUE: Standard unenhanced head CT. The dose-length product (DLP) was 605.33 mGy-cm. The mA was a djusted according to patient size. Iterative reconstruction technique was employed. FINDINGS: There is no acute intraparenchymal hemorrhage. No evidence of mass lesion. No evidence of a cute infarction. There is an old left-sided frontoparietal infarct. There is mild periventricular and subcortical hypodensity probably related to small vessel ischemic disease. There is mild prominence of the sulci and ventricles related to cerebral atrophy. Intracranial calcified cerebral atherosclero sis is noted. There are no extra-axial collections. There is no mass effect or midline shift. Changes in the globes are likely from ocular lens surgery. The visualized sinuses and mastoid air cells are well aerated. IMPRESSION: 1. No acute intracranial abnormality. 2. Age related findings. Reviewed, dictated and finalized at location B. MITER OPERATOR
--- NOTE | ~2021-05-21 | XR_ITS ---
EXAMINATION: XR chest 1V INDICATION: Left-sided weakness TECHNIQUE: AP view of the chest is obtained. COMPARISON: 05/02/2021 FINDINGS: The lungs are free of acute opacities. There is no pleural effusion or pneumothorax. The he art size is normal. A dual-lead cardiac pacemaker of the left chest wall ends with leads in expected locations. IMPRESSION: 1. No acute cardiopulmonary abnormality. Reviewed, dictated and finalized at location B. STRATION COORDINATOR
[2021-05-21 10:35] VITALS: BP 182/98; PULSE 82; PULSE 85; RESP 22; RESP 23; TEMP 36.8; O2SAT 99
--- NOTE | 2021-05-21 10:47 | ECG_ITS ---
Measurements Intervals [place] Rate: 84 P: 56 OR: 171 QRS: 78 QRSD: 160 T: -85 QT: 407 QTc: 482 Interpretive Statements ATRIAL SENSE- ELECTRONIC VENTRICULAR PACEMAKER BASELINE ARTIFACT- II, III, AVR, AVL, AVF NO FURTHER INTERPRETATION IS POSSIBLE ATYPICAL ECG Electronically Signed On 05-21-2021 19:29:29 [place] OPERATOR by Naman Dee D.O.
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
[2021-05-21 11:16] LABS: Glucose Point of Care 122 mg/dl (65-105)
[2021-05-21 11:21] LABS: Basophils Absolute Auto 0.1 K/mm3 (0.0-0.1); Basophils Percent Auto 0.7 % (0.2-1.2); Eosinophils Absolute Auto 0.2 K/mm3 (0-0.3); Eosinophils Percent Auto 1.9 % (0-4.4); Hemoglobin 16.1 g/dL (14.0-18.0); Immature Granulocyte Absolute 0.03 K/mm3 (0.00-0.031); Immature Granulocyte Percent A 0.3 % (0-0.5); Lymphocytes Absolute Auto 1.34 K/mm3 (0.9-3.2); Mean Corpuscular HGB Conc 34.3 g/dl (32-36); Mean Corpuscular Hemoglobin 30.4 pg (26-34); Mean Corpuscular Volume 88.8 fl (80-100); Mean Platelet Volume 10.7 fl (7.4-10.4); Monocytes Absolute Auto 0.7 K/mm3 (0.1-0.6); Monocytes Percent Auto 8.3 % (2.6-8.5); Neutrophils Absolute Auto 6.6 K/mm3 (1.3-6.7); Neutrophils Percent Auto 73.8 % (45.5-73.1); Platelet Count Result 237 k/mm3 (150-375); Red Blood Count 5.29 M/mm3 (4.6-6.20); Red Cell Distribution Width 13.2 % (11.5-14.5); White Blood Count 8.9 K/mm3 (4.5-10.0)
[2021-05-21 11:31] LABS: INR 0.9; Prothrombin Time 12.5 Seconds (11.1-14.7)
[2021-05-21 11:32] LABS: Anion Gap 10 mmol/L (8-16); Blood Urea Nitrogen 17 mg/dL (9-20); Calcium 9.7 mg/dL (8.4-10.2); Carbon Dioxide 24 mmol/L (22-30); Chloride 107 mmol/L (98-107); Estimated CRCL calculation 43 ml/min; Estimated Glomerular Filt Rate 54; Glucose 125 mg/dL (65-110); Partial Thromboplastin Time 26.8 SECONDS (22.3-36.8); Potassium 4.4 mmol/L (3.4-5.0); Sodium 141 mmol/L (137-145)
[2021-05-21 11:45] LABS: Troponin I 0.017 ng/mL (0.000-0.034)
[2021-05-21] MEDS: SODIUM CHLORIDE 0.9% IV 1,000 ML 999 ML IV CONT (11:52)
[2021-05-21] MEDS: LORazepam INJ (*CRX) 2 MG/ML VIAL 1 MG IV PUSH (11:52)
[2021-05-21 11:58] VITALS: BP 148/69; PULSE 73; RESP 18; O2SAT 98
[2021-05-21 13:07] VITALS: BP 141/87; PULSE 67; RESP 16; O2SAT 97
== END 2021-05-21 13:08 | disposition home or self-care (01) ==
PROVIDERS: Emergency Provider Emergency Medicine; PCP Family Medicine
DX: F41.9 Anxiety disorder, unspecified (principal); I65.23 Occlusion and stenosis of bilateral carotid arteries; I12.9 Hypertensive chronic kidney disease with stage 1 through stage 4 chronic kidney disease, or unspecified chronic kidney disease; N18.30 Chronic kidney disease, stage 3 unspecified; E78.5 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, unspecified; Z95.0 Presence of cardiac pacemaker
CPT/HCPCS: 36415; 70450; 71045; 80048; 82948; 84484; 85025; 85610; 85730; 93005; 96361; 96374; 99284; J2060; J7030

== ENCOUNTER 2021-11-04 09:32 | Outpatient (CLI) | payer MEDICARE, SELFPAY ==
--- NOTE | ~2021-11-04 | NM_ITS ---
EXAMINATION: NM angy stress w perfusion DATE: 11/04/2021 12:25 INDICATION: Dyspnea on exertion. TECHNIQUE: Rest images were obtained following intravenous administration of 10.4 mCi Tc99m tetrofosm in (Myoview). The patient was infused intravenously with Lexiscan (regadenoson). Then, 30.8 mCi Tc99m tetrofosmin (Myoview) was administered intravenously, and supine and prone stress images were obtain ed. Data was reconstructed into short axis and horizontal and vertical long axis SPECT images. Gated SPECT images were also obtained. COMPARISON: Chest CT 04/05/2020 FINDINGS: There is no definite reversible or fixed perfusion abnormality to suggest ischemia or infar ction. There is no segmental wall motion abnormality. Left ventricular ejection fraction measures > 70%. IMPRESSION: 1. No definite ischemia or infarct. 2. Normal left ventricular ejection fraction measuring >70%. Reviewed, dictated and finalized at location A.
--- NOTE | 2021-11-04 10:01 | EST_ITS ---
Patient Info Name: Jerry Chappell Age: 76 years : 1945 Gender: Male Ht: 69 in Wt: 188 lbs BSA: 2.05 m2 Exam Date: 11/04/2021 10:41 AM Exam Location: [facility] Stress Patient Status: Outpatient Admit Date: 11/04/2021 Staff Ordering Physician: Naman Dee DO Attending Provider: Naman Dee DO Exercise Technologist: David Connell RDCS, RT Exam Type: CA stress angy w NM Study Info A regadenoson stress test was performed. Summary 1. 1. Inconclusive lexiscan stress test for ischemic ST changes by ECG criteria due to baseline LBBB. 2. 2. Baseline hypertension. 3. 3. Nuclear scan to follow and will be reported separately. Please correlate with it. 4. 4. Patient informed of the above results. Protocol: Lexiscan Stress ECG Details Stage: REST Duration (min): 2 min : 27 sec HR (bpm): 81 SBP (mmHg): 174 DBP (mmHg): 76 Stage: REST Duration (min): 9 min : 34 sec HR (bpm): 84 SBP (mmHg): 174 DBP (mmHg): 76 Stage: STAGE 1 Duration (min): 0 min : 59 sec HR (bpm): 101 SBP (mmHg): 174 DBP (mmHg): 76 Stage: RECOVERY Duration (min): 1 min : 0 sec HR (bpm): 110 SBP (mmHg): 165 DBP (mmHg): 49 Stage: RECOVERY Duration (min): 2 min : 0 sec HR (bpm): 105 SBP (mmHg): 165 DBP (mmHg): 49 Stage: RECOVERY Duration (min): 3 min : 0 sec HR (bpm): 101 SBP (mmHg): 96 DBP (mmHg): 48 Stage: RECOVERY Duration (min): 3 min : 18 sec HR (bpm): 100 SBP (mmHg): 96 DBP (mmHg): 48 Rest HR: 84 bpm Peak HR: 110 bpm Rest Sys BP: 174 mmHg Peak Sys BP: 165 mmHg Max Pred HR: 145 bpm % Max Pred HR: 76 % Target HR: 123 bpm Max RPP: 18,150 bpm*mmHg Termination Reason: Completed protocol Cardiac Symptoms: Shortness of breath Total Time: 1 min : 0 sec Rest Yang BP: 76 mmHg Peak Yang BP: 49 mmHg Total Dose: 0.4 mg Resting ECG Sinus rhythm, LBBB. Stress ECG No ST changes. Arrhythmias None. Report Signatures
== END 2021-11-04 09:33 | disposition home or self-care (01) ==
LOC: ANHCARD 09:33
PROVIDERS: PCP Family Medicine; Visit Provider Internal Medicine Cardiovascular Disease
DX: R06.00 Dyspnea, unspecified (principal)
CPT/HCPCS: 78452; 93017; A9502; J2785

== ENCOUNTER 2022-04-16 16:44 | Emergency (ER) | payer MEDICARE, SELFPAY ==
--- NOTE | ~2022-04-16 | XR_ITS ---
XR chest 1V portable 04/16/2022 17:07 Indication: Weakness and shortness of breath Procedure: AP portable chest Comparison: Comparison to multiple prior studies sequentially, with oldest reviewed study dated 04/05. Findings: Heart size normal. Pacemaker leads are in expected position. No focal air space disease, pu lmonary edema, pleural effusion or suspected pneumothorax. There are is severe right glenohumeral kelvin nt arthritis. Impression: 1: No acute cardiopulmonary disease. Reviewed, dictated and finalized at location A. Impression: 1: No acute cardiopulmonary disease.
--- NOTE | 2022-04-16 16:44 | ECG_ITS ---
Measurements Intervals [place] Rate: 99 P: 61 IA: 167 QRS: 86 QRSD: 154 T: -76 QT: 375 QTc: 482 Interpretive Statements SINUS RHYTHM WITH ATRIAL SENSING AND ELECTRONIC VENTRICULAR PACEMAKER ABNORMAL RHYTHM ECG COMPARED TO ECG 05/21/2021 10:30:58 NO SIGNIFICANT CHANGES Electronically Signed On 04-17-2022 7:59:11 CDT by Jerry Simmons M.D.
[2022-04-16 16:46] VITALS: BP 207/98; PULSE 93; RESP 16; TEMP 36.6; O2SAT 97
[2022-04-16 16:48] VITALS: PULSE 96; RESP 26; O2SAT 97
[2022-04-16 17:00] VITALS: BP 201/88; PULSE 78; RESP 30; O2SAT 94
[2022-04-16 17:07] LABS: Basophils Absolute Auto 0.1 K/mm3 (0.0-0.1); Basophils Percent Auto 0.7 % (0.2-1.2); Eosinophils Absolute Auto 0.3 K/mm3 (0-0.3); Eosinophils Percent Auto 2.5 % (0-4.4); Hematocrit 46.8 % (42.0-52.0); Hemoglobin 15.3 g/dL (14.0-18.0); Immature Granulocyte Absolute 0.04 K/mm3 (0.00-0.031); Immature Granulocyte Percent A 0.4 % (0-0.5); Lymphocytes Absolute Auto 1.92 K/mm3 (0.9-3.2); Lymphocytes Percent Auto 18.9 % (18.3-44.2); Mean Corpuscular HGB Conc 32.7 g/dl (32-36); Mean Corpuscular Hemoglobin 29.9 pg (26-34); Mean Corpuscular Volume 91.4 fl (80-100); Mean Platelet Volume 11.2 fl (7.4-10.4); Monocytes Absolute Auto 0.9 K/mm3 (0.1-0.6); Monocytes Percent Auto 8.6 % (2.6-8.5); Neutrophils Percent Auto 68.9 % (45.5-73.1); Platelet Count Result 215 k/mm3 (150-375); Red Blood Count 5.12 M/mm3 (4.6-6.20); Red Cell Distribution Width 13.3 % (11.5-14.5); White Blood Count 10.2 K/mm3 (4.5-10.0)
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
[2022-04-16 17:42] LABS: INR 1.1; Prothrombin Time 13.3 Seconds (11.1-14.7)
[2022-04-16 17:43] LABS: Partial Thromboplastin Time 29.3 SECONDS (22.3-36.8)
[2022-04-16] MEDS: lisinopriL 10 MG TABLET PO (17:46)
[2022-04-16 17:47] LABS: Alanine Aminotransferase 32 U/L (6-50); Albumin Level 4.6 g/dL (3.5-5.1); Alkaline Phosphatase 117 U/L (38-126); Anion Gap 9 mmol/L (8-16); Aspartate Amino Transferase 58 U/L (17-59); Bilirubin,Total 1.7 mg/dL (0.2-1.3); Blood Urea Nitrogen 19 mg/dL (9-20); Calcium 8.5 mg/dL (8.4-10.2); Carbon Dioxide 22 mmol/L (22-30); Chloride 107 mmol/L (98-107); Estimated CRCL calculation 47 ml/min; Estimated Glomerular Filt Rate 59; Glucose 99 mg/dL (65-110); Lipase 161 U/L (23-300); Sodium 138 mmol/L (137-145); Troponin I 0.029 ng/mL (0.000-0.034)
[2022-04-16 18:51] VITALS: BP 168/80; PULSE 76; RESP 17; O2SAT 95
[2022-04-17 01:49] LABS: Potassium 5.3 mmol/L (3.4-5.0)
== END 2022-04-16 18:52 | disposition home or self-care (01) ==
PROVIDERS: Emergency Provider Emergency Medicine; PCP Family Medicine
DX: I12.9 Hypertensive chronic kidney disease with stage 1 through stage 4 chronic kidney disease, or unspecified chronic kidney disease (principal); N18.30 Chronic kidney disease, stage 3 unspecified; E78.5 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, unspecified; I65.21 Occlusion and stenosis of right carotid artery; E55.9 Vitamin D deficiency, unspecified; G47.31 Primary central sleep apnea; F41.9 Anxiety disorder, unspecified; Z86.73 Personal history of transient ischemic attack (TIA), and cerebral infarction without residual deficits; Z95.0 Presence of cardiac pacemaker; Z98.42 Cataract extraction status, left eye; Z98.41 Cataract extraction status, right eye; Z96.1 Presence of intraocular lens; Z79.82 Long term (current) use of aspirin; R94.31 Abnormal electrocardiogram [ECG] [EKG]
CPT/HCPCS: 36415; 71045; 80053; 83690; 84484; 85025; 85610; 85730; 93005; 99284; A9270

== ENCOUNTER 2023-03-18 09:03 | Outpatient (CLI) | payer MEDICARE, SELFPAY ==
[2023-03-18 13:11] LABS: Basophils Absolute Auto 0.1 K/mm3 (0.0-0.1); Basophils Percent Auto 0.7 % (0.2-1.2); Eosinophils Absolute Auto 0.3 K/mm3 (0-0.3); Eosinophils Percent Auto 3.1 % (0-4.4); Hematocrit 48.7 % (42.0-52.0); Hemoglobin 16.1 g/dL (14.0-18.0); Immature Granulocyte Absolute 0.02 K/mm3 (0.00-0.031); Immature Granulocyte Percent A 0.2 % (0-0.5); Lymphocytes Absolute Auto 1.63 K/mm3 (0.9-3.2); Lymphocytes Percent Auto 19.3 % (18.3-44.2); Mean Corpuscular HGB Conc 33.1 g/dl (32-36); Mean Corpuscular Hemoglobin 29.8 pg (26-34); Mean Corpuscular Volume 90.2 fl (80-100); Mean Platelet Volume 11.5 fl (7.4-10.4); Monocytes Absolute Auto 0.7 K/mm3 (0.1-0.6); Monocytes Percent Auto 8.3 % (2.6-8.5); Neutrophils Absolute Auto 5.8 K/mm3 (1.3-6.7); Neutrophils Percent Auto 68.4 % (45.5-73.1); Platelet Count Result 267 k/mm3 (150-375); Red Cell Distribution Width 13.3 % (11.5-14.5); White Blood Count 8.4 K/mm3 (4.5-10.0)
[2023-03-18 13:44] LABS: Alanine Aminotransferase 37 U/L (6-50); Albumin Level 4.6 g/dL (3.5-5.1); Alkaline Phosphatase 134 U/L (38-126); Anion Gap 13 mmol/L (8-16); Aspartate Amino Transferase 73 U/L (17-59); Bilirubin,Total 0.8 mg/dL (0.2-1.3); Blood Urea Nitrogen 19 mg/dL (9-20); Calcium 9.1 mg/dL (8.4-10.2); Carbon Dioxide 21 mmol/L (22-30); Chloride 106 mmol/L (98-107); Cholesterol 148 mg/dL (0-200); Estimated Glomerular Filt Rate 54; Glucose 109 mg/dL (65-110); HDL Direct 41 mg/dL; Potassium 4.1 mmol/L (3.4-5.0); Sodium 140 mmol/L (137-145); Triglycerides 101 mg/dL (<150)
[2023-03-18 13:54] LABS: LDL Cholesterol Direct 74 mg/dL
[2023-03-21 19:23] LABS: PSA, Free 0.66 ng/mL
[2023-03-22 20:03] LABS: Vitamin D 1,25 (OH)2 Total 44 pg/mL (18-72); Vitamin D2 1,25 (OH)2 <8 pg/mL; Vitamin D3 1,25 (OH)2 44 pg/mL
== END 2023-03-18 09:04 | disposition home or self-care (01) ==
PROVIDERS: PCP Family Medicine; Visit Provider Nurse Practitioner Family
DX: E55.9 Vitamin D deficiency, unspecified (principal); Z12.5 Encounter for screening for malignant neoplasm of prostate; I12.9 Hypertensive chronic kidney disease with stage 1 through stage 4 chronic kidney disease, or unspecified chronic kidney disease; N18.30 Chronic kidney disease, stage 3 unspecified
CPT/HCPCS: 36415; 80053; 80061; 82607; 82652; 84153; 84154; 85025

== ENCOUNTER 2023-04-27 07:19 | Outpatient (CLI) | payer MEDICARE, SELFPAY ==
--- NOTE | 2023-04-27 | EST_ITS ---
Patient Info Name: Jerry Chappell Age: 77 years : 1945 Gender: Male Ht: 69 in Wt: 188 lbs BSA: 2.05 m2 HR: 64 bpm BP: 182 / 77 mmHg Heart Rhythm: Sinus Rhythm Exam Date: 04/27/2023 9:14 AM Exam Location: [facility] Stress Patient Status: Preadmit Admit Date: 04/27/2023 Staff Ordering Physician: Naman Dee DO Attending Provider: Nabila Maki APRN Exercise Technologist: Marissa Burgos CT Exercise Physician: Naman Dee DO Exam Type: CA stress angy w NM Study Info Indications I47.2 - Ventricular tachycardia A regadenoson stress test was performed. Summary 1. 1. Inconclusive lexiscan stress test for ischemic ST changes by ECG criteria due to ventricular paced rhythm. 2. 2. Baseline hypertension. 3. 3. Nuclear scan to follow and will be reported separately. Please correlate with it. 4. 4. Patient informed of the above results. Protocol: Lexiscan Stress ECG Details Stage: REST Duration (min): 2 min : 4 sec HR (bpm): 63 SBP (mmHg): 182 DBP (mmHg): 77 Stage: STAGE 1 Duration (min): 1 min : 0 sec HR (bpm): 72 SBP (mmHg): 182 DBP (mmHg): 77 Stage: RECOVERY Duration (min): 1 min : 0 sec HR (bpm): 77 SBP (mmHg): 163 DBP (mmHg): 46 Stage: RECOVERY Duration (min): 2 min : 0 sec HR (bpm): 69 SBP (mmHg): 163 DBP (mmHg): 46 Stage: RECOVERY Duration (min): 3 min : 0 sec HR (bpm): 69 SBP (mmHg): 163 DBP (mmHg): 46 Stage: RECOVERY Duration (min): 3 min : 31 sec HR (bpm): 67 SBP (mmHg): 134 DBP (mmHg): 45 Peak HR: 77 bpm Rest Sys BP: 182 mmHg Peak Sys BP: 163 mmHg Max Pred HR: 144 bpm % Max Pred HR: 53 % Target HR: 122 bpm Max RPP: 12,551 bpm*mmHg Termination Reason: Completed protocol Cardiac Symptoms: Shortness of breath Total Time: 1 min : 0 sec Rest Yang BP: 77 mmHg Peak Yang BP: 46 mmHg Total Dose: 0.4 mg Resting ECG Atrial sense- electronic ventricular pacemaker. Stress ECG No ST changes. Arrhythmias None. Report Signatures
--- NOTE | ~2023-04-27 | NM_ITS ---
EXAMINATION: NM angy stress w perfusion DATE: 04/27/2023 10:36 INDICATION: Cardiac murmur TECHNIQUE: Rest images were obtained following intravenous administration of 11 mCi Tc99m tetrofosmin (Myoview). The patient was infused intravenously with Lexiscan (Regadenoson). Then, 34.5 mCi Tc99m t etrofosmin (Myoview) was administered intravenously, and stress images were obtained. Data was recons tructed into short axis and horizontal and vertical long axis SPECT images. Gated SPECT images were a lso obtained. COMPARISON: 11/04/2021 FINDINGS: There is a mild fixed perfusion defect along the mid anterior wall which is also subtly pre sent on the prior imaging obtained in the supine position but which at that time normalized on prone imaging which was not obtained in the current study. Additional likely artifactual small mild defect at the apical lateral segment on the stress images which appears to normalize on the gated images ob tained during systole. There is normal left ventricular chamber size, wall motion and ejection fracti on. Left ventricular ejection fraction measures >70%. IMPRESSION: 1. Fixed perfusion defect at the mid anterior segment which could represent infarct however similar s ubtle decreased activity at this location on the prior study obtained in supine position normal as wi th prone imaging and this is more likely artifactual. No reversible ischemia. 2. Left ventricular ejection fraction measuring >70%. Reviewed, dictated and finalized at location A. IMPRESSION: 1. Fixed perfusion defect at the mid anterior segment which could represent inf arct however similar subtle decreased activity at this location on the prior st udy obtained in supine position normal as with prone imaging and this is more l ikely artifactual. No reversible ischemia. 2. Left ventricular ejection fraction measuring >70%.
== END 2023-04-27 07:20 | disposition home or self-care (01) ==
PROVIDERS: PCP Family Medicine; Referring Provider Nurse Practitioner Family; Visit Provider Internal Medicine Cardiovascular Disease
DX: R01.1 Cardiac murmur, unspecified (principal); I47.29 Other ventricular tachycardia
CPT/HCPCS: 78452; 93017; 93306; A9502; J2785

== ENCOUNTER 2023-04-27 11:55 | Outpatient (CLI) | payer MEDICARE, SELFPAY ==
--- NOTE | 2023-04-27 07:31 | ECHO_ITS ---
Patient Info Name: Jerry Chappell Age: 77 years : 1945 Gender: Male Ht: 69 in Wt: 188 lbs BSA: 2.05 m2 HR: 72 bpm BP: 184 / 83 mmHg Heart Rhythm: Sinus Rhythm Technical Quality: Fair Exam Date: 04/27/2023 7:47 AM Exam Location: [facility] Pulmonary Patient Status: Preadmit Admit Date: 04/27/2023 Staff Ordering Physician: Nabila Maki APRN Heater Worker: Odalys Emmanuel RDCS Attending Provider: Nabila Maki APRN Referring Physician: Glynn ALEJANDRE; Exam Type: CA echo doppler color flow Study Info Indications R01.1 - Cardiac murmur, unspecified Complete two-dimensional, color flow and Doppler transthoracic echocardiogram is performed. Summary 1. Complete two-dimensional, color flow and Doppler transthoracic echocardiogram is performed. 2. Left ventricular chamber dimension is normal. 3. Left ventricular systolic function is normal, estimated at 60-65%. 4. There is mild concentric increased left ventricular wall thickness. 5. The left ventricular diastolic function is abnormal. 6. E/e' 27 is significantly elevated. 7. There is moderate aortic valve sclerosis. 8. There is mild mitral valve regurgitation. 9. Mild pulmonary hypertension, estimated pulmonary arterial systolic pressure is 42 mmHg. Left Ventricle E/e' 27 is significantly elevated. Left ventricular chamber dimension is normal. Left ventricular systolic function is normal, estimated at 60-65%. There is mild concentric increased left ventricular wall thickness. The left ventricular diastolic function is abnormal. Right Ventricle Right ventricular systolic function is normal and with normal TAPSE 1.8 cm. Right ventricular chamber dimension is normal. Left Atria Left atrial chamber dimension is normal. Right Atria Right atrial chamber dimension is normal. Aortic Valve The aortic valve is trileaflet. There is moderate aortic valve sclerosis. There is no aortic valve stenosis. There is no aortic valve regurgitation. Pulmonic Valve There is no pulmonic regurgitation. Mitral Valve There is no mitral valve stenosis. There is mild mitral valve regurgitation. Tricuspid Valve There is no tricuspid valve regurgitation. Mild pulmonary hypertension, estimated pulmonary arterial systolic pressure is 42 mmHg. Pericardium/Pleural There is no pericardial effusion. Inferior Vena Cava Normal inferior vena cava with >50% collapse upon inspiration consistent with normal right atrial pressure, 5 mmHg. Aorta The aortic root size at the sinus of Valsalva is normal. Left Ventricular Outflow Tract Name Value Normal LVOT 2D LVOT Diameter 2.0 cm LVOT Doppler LVOT Peak Gradient 5 mmHg LVOT Mean Gradient 2 mmHg LVOT VTI 27 cm LVOT VTI/AV VTI Ratio 0.9 LVOT Stroke Volume 86 ml LVOT CO 5.1 l/min LVOT CI 2.5 l/min/m2 Pulmonic Valve Name Value Normal
== END 2023-04-27 11:56 ==
LOC: ANHCARD 05-05 11:55
PROVIDERS: PCP Family Medicine; Visit Provider Nurse Practitioner Family
DX: R01.1 Cardiac murmur, unspecified (principal); I47.29 Other ventricular tachycardia; I08.3 Combined rheumatic disorders of mitral, aortic and tricuspid valves
CPT/HCPCS: 93017; 93306

== ENCOUNTER 2023-09-16 08:50 | Outpatient (CLI) | payer MEDICARE, SELFPAY ==
[2023-09-16 12:45] LABS: Basophils Absolute Auto 0.1 K/mm3 (0.0-0.1); Basophils Percent Auto 0.6 % (0.2-1.2); Eosinophils Absolute Auto 0.3 K/mm3 (0-0.3); Eosinophils Percent Auto 3.2 % (0-4.4); Hemoglobin 14.9 g/dL (14.0-18.0); Immature Granulocyte Absolute 0.02 K/mm3 (0.00-0.031); Immature Granulocyte Percent A 0.2 % (0-0.5); Lymphocytes Absolute Auto 1.53 K/mm3 (0.9-3.2); Lymphocytes Percent Auto 16.5 % (18.3-44.2); Mean Corpuscular HGB Conc 32.4 g/dl (32-36); Mean Corpuscular Hemoglobin 29.8 pg (26-34); Mean Platelet Volume 11.8 fl (7.4-10.4); Monocytes Absolute Auto 0.8 K/mm3 (0.1-0.6); Monocytes Percent Auto 8.8 % (2.6-8.5); Neutrophils Absolute Auto 6.6 K/mm3 (1.3-6.7); Neutrophils Percent Auto 70.7 % (45.5-73.1); Platelet Count Result 271 k/mm3 (150-375); Red Cell Distribution Width 13.7 % (11.5-14.5); White Blood Count 9.3 K/mm3 (4.5-10.0)
[2023-09-16 13:01] LABS: Alanine Aminotransferase 30 U/L (6-50); Albumin Level 4.3 g/dL (3.5-5.1); Alkaline Phosphatase 118 U/L (38-126); Anion Gap 6 mmol/L (8-16); Aspartate Amino Transferase 91 U/L (17-59); Blood Urea Nitrogen 15 mg/dL (9-20); Carbon Dioxide 25 mmol/L (22-30); Chloride 107 mmol/L (98-107); Cholesterol 112 mg/dL (0-200); Estimated Glomerular Filt Rate 54; Glucose 115 mg/dL (65-110); HDL Direct 37 mg/dL; Potassium 3.9 mmol/L (3.4-5.0); Sodium 138 mmol/L (137-145); Triglycerides 96 mg/dL (<150)
[2023-09-16 13:11] LABS: LDL Cholesterol Direct 57 mg/dL
[2023-09-16 14:08] LABS: Hemoglobin A1C 5.7 % (<5.7)
== END 2023-09-16 08:51 | disposition home or self-care (01) ==
PROVIDERS: PCP Family Medicine; Visit Provider Nurse Practitioner Family
DX: I10 Essential (primary) hypertension (principal); I47.29 Other ventricular tachycardia; I65.29 Occlusion and stenosis of unspecified carotid artery; R74.8 Abnormal levels of other serum enzymes; Z00.00 Encounter for general adult medical examination without abnormal findings; R73.03 Prediabetes; E78.5 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, unspecified
CPT/HCPCS: 36415; 80053; 80061; 83036; 85025

== ENCOUNTER 2023-09-22 10:04 | Outpatient (CLI) | payer MEDICARE, SELFPAY ==
[2023-09-22 13:00] LABS: Alanine Aminotransferase 38 U/L (6-50); Albumin Level 4.2 g/dL (3.5-5.1); Alkaline Phosphatase 117 U/L (38-126); Aspartate Amino Transferase 68 U/L (17-59); Bilirubin,Total 0.8 mg/dL (0.2-1.3)
== END 2023-09-22 10:05 | disposition home or self-care (01) ==
PROVIDERS: PCP Family Medicine; Visit Provider Nurse Practitioner Family
DX: R74.8 Abnormal levels of other serum enzymes (principal); K74.60 Unspecified cirrhosis of liver; Z20.5 Contact with and (suspected) exposure to viral hepatitis; Z87.19 Personal history of other diseases of the digestive system
CPT/HCPCS: 36415; 80076

== ENCOUNTER 2024-05-18 08:37 | Outpatient (CLI) | payer MEDICARE, SELFPAY ==
[2024-05-18 14:30] LABS: Basophils Absolute Auto 0.1 K/mm3 (0.0-0.1); Basophils Percent Auto 1.1 % (0.2-1.2); Eosinophils Absolute Auto 0.3 K/mm3 (0-0.3); Eosinophils Percent Auto 3.9 % (0-4.4); Hematocrit 46.4 % (42.0-52.0); Immature Granulocyte Absolute 0.02 K/mm3 (0.00-0.031); Immature Granulocyte Percent A 0.2 % (0-0.5); Lymphocytes Absolute Auto 1.51 K/mm3 (0.9-3.2); Lymphocytes Percent Auto 17.3 % (18.3-44.2); Mean Corpuscular HGB Conc 32.3 g/dl (32-36); Mean Corpuscular Hemoglobin 29.8 pg (26-34); Mean Corpuscular Volume 92.1 fl (80-100); Mean Platelet Volume 11.5 fl (7.4-10.4); Monocytes Absolute Auto 0.8 K/mm3 (0.1-0.6); Monocytes Percent Auto 8.8 % (2.6-8.5); Neutrophils Percent Auto 68.7 % (45.5-73.1); Platelet Count Result 250 k/mm3 (150-375); Red Blood Count 5.04 M/mm3 (4.6-6.20); Red Cell Distribution Width 13.8 % (11.5-14.5); White Blood Count 8.8 K/mm3 (4.5-10.0)
[2024-05-18 15:40] LABS: Alanine Aminotransferase 33 U/L (6-50); Albumin Level 4.4 g/dL (3.5-5.1); Alkaline Phosphatase 114 U/L (38-126); Anion Gap 10 mmol/L (4-12); Aspartate Amino Transferase 40 U/L (17-59); Bilirubin,Total 0.8 mg/dL (0.2-1.3); Blood Urea Nitrogen 17 mg/dL (9-20); Calcium 9.2 mg/dL (8.4-10.2); Carbon Dioxide 27 mmol/L (22-30); Chloride 103 mmol/L (98-107); Cholesterol 115 mg/dL (0-200); Estimated Glomerular Filt Rate 42; Glucose 106 mg/dL (65-110); HDL Direct 37 mg/dL; Potassium 4.7 mmol/L (3.4-5.0); Sodium 140 mmol/L (137-145); Triglycerides 100 mg/dL (<150)
[2024-05-18 15:51] LABS: LDL Cholesterol Direct 50 mg/dL
[2024-05-18 15:54] LABS: Vitamin D 25 Hydroxy 55.6 ng/mL
[2024-05-18 15:55] LABS: Hepatitis B Surface Antigen Negative (Negative)
[2024-05-18 16:01] LABS: HAV RESULT Negative (Negative); Hepatitis B Core IgM Result Negative (Negative)
[2024-05-18 16:11] LABS: Prostate Specific Antigen 2.7 ng/mL (< OR = 4.0)
[2024-05-18 16:12] LABS: Hepatitis C Virus Antibody Negative (Negative)
[2024-05-18 16:30] LABS: Hemoglobin A1C 5.8 % (<5.7)
== END 2024-05-18 08:38 | disposition home or self-care (01) ==
LOC: ANHGOSHLAB 08:38
PROVIDERS: Nurse Practitioner Family; PCP Family Medicine; Visit Provider Nurse Practitioner Family
DX: E78.5 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, unspecified (principal); E55.9 Vitamin D deficiency, unspecified; R73.01 Impaired fasting glucose; I10 Essential (primary) hypertension; Z12.5 Encounter for screening for malignant neoplasm of prostate; K74.60 Unspecified cirrhosis of liver; R74.8 Abnormal levels of other serum enzymes; Z20.5 Contact with and (suspected) exposure to viral hepatitis; Z87.19 Personal history of other diseases of the digestive system
CPT/HCPCS: 36415; 80053; 80061; 80074; 82306; 83036; 84153; 85025; G0103

== ENCOUNTER 2024-07-13 11:13 | Emergency (ER) | payer MEDICARE, SELFPAY ==
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
[2024-07-13 11:30] VITALS: BP 136/54; PULSE 88; RESP 18; TEMP 37.3; O2SAT 98
[2024-07-13 11:57] LABS: EDCOVIDSCREEN Positive (Negative); EDINFLUASCREEN Negative (Negative); EDINFLUBSCREEN Positive (Negative)
== END 2024-07-13 12:20 | disposition home or self-care (01) ==
PROVIDERS: Emergency Provider Nurse Practitioner Family; PCP Family Medicine
DX: U07.1 COVID-19 (principal); J11.1 Influenza due to unidentified influenza virus with other respiratory manifestations; Z79.82 Long term (current) use of aspirin; N18.30 Chronic kidney disease, stage 3 unspecified; I12.9 Hypertensive chronic kidney disease with stage 1 through stage 4 chronic kidney disease, or unspecified chronic kidney disease; E78.5 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, unspecified; Z86.73 Personal history of transient ischemic attack (TIA), and cerebral infarction without residual deficits; G47.30 Sleep apnea, unspecified; E55.9 Vitamin D deficiency, unspecified
CPT/HCPCS: 87426; 87804; 99213; G0463

== ENCOUNTER 2024-11-16 09:07 | Outpatient (CLI) | payer MEDICARE, SELFPAY ==
--- OUTSIDE RECORDS SUMMARY | 2024-11-16 09:12 | XMS_ITS | Encounter Summary ---
Author Organization [facility] Address [address] [place] [address] Care Team Providers Care Polymer Chemist Name Role Phone Tee Espinosa MD Primary Care Provider [phone] Encounter Details Date Type Department Care Team (Late st Contact Info) Description 03/25/[address] [facility] [address] [facility] [address] [place] [phone] Tee Yates MD [address] 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
--- OUTSIDE RECORDS SUMMARY | 2024-11-16 09:12 | XMS_ITS | Encounter Summary ---
Author Organization [facility] Address [address] [place] [address] Care Team Providers Care Electric Meter Technician Name Role Phone Tee Espinosa MD Primary Care Provider [phone] Encounter Details Date Type Department Care Team (Late st Contact Info) Description 12/11/2003 Outpatient Historical [facility] [address] [facility] [address] [place] [phone] Tee Yates MD [address] 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
--- OUTSIDE RECORDS SUMMARY | 2024-11-16 09:12 | XMS_ITS | Encounter Summary ---
Author Organization [facility] Address [address] [place] [address] Care Team Providers Care Fondant Cooker Name Role Phone Tee Espinosa MD Primary Care Provider [phone] Encounter Details Date Type Department Care Team (Late st Contact Info) Description 04/14/2004 Outpatient Historical [facility] [address] [facility] [address] [place] [phone] Tee Yates MD [address] 

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
--- OUTSIDE RECORDS SUMMARY | 2024-11-16 09:12 | XMS_ITS | Encounter Summary ---
Author Organization [facility] Address [address], [place] [address] Phone Care Team Providers Care Director Of Student Affairs Name Role Phone Pedro Bird MD Primary Care Provider Reason for Visit * Reason Comments Med Refill Encounter Details Date Type Department Care Team (Late st Contact Info) Description 12/22/2021 Refill [facility] [address] [address], [address] [place] [address] Levi Garcia MD [address] [facility], [address] [place] [address] Social History Tobacco Use Types Packs/Day Years Used Date Smoking Tobacco: Never Smokeless Tobacco: Never Alcohol Use Standard Drinks/Week Comments Not Currently 0 (1 standard drink = 0.6 oz pur e alcohol) Sex and Gender Information Value Date Recorded Sex Assigned at Not on file Legal Sex Male 10:29 AM T Gender Identity Not on file Sexual Orientation Not on file documented as of this encounter Miscellaneous Notes * Telephone Encounter - Levi Garcia MD - 12/22/2021 8:57 PM CDT Please call pt to make an appt documented in this encounter Plan of Treatment Not on file documented as of this encounter Visit Diagnoses Not on filedocumented in this encounter Care Teams Director Of Student Affairs Relationship Specialty Start Date End Date Pedro Bird MD [address] [place] [address] PCP - General Internal Medicine 01/16/19 documented as of this encounter
--- OUTSIDE RECORDS SUMMARY | 2024-11-16 09:12 | XMS_ITS | Encounter Summary ---
Author Organization [facility] Address 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
--- OUTSIDE RECORDS SUMMARY | 2024-11-16 09:12 | XMS_ITS | Encounter Summary ---
Author Organization [facility] Address [address] [place] [address] Care Team Providers Care Business Process Representative Name Role Phone Tee Espinosa MD Primary Care Provider [phone] Encounter Details Date Type Department Care Team (Late st Contact Info) Description 02/12/[address] [facility] [address] [facility] [address] [place] [phone] Tee Yates MD [address] 

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
--- OUTSIDE RECORDS SUMMARY | 2024-11-16 09:12 | XMS_ITS | Encounter Summary ---
Author Organization [facility] Address [address] [place] [address] Care Team Providers Care Sales Agent Casualty Insurance Name Role Phone Tee Espinosa MD Primary Care Provider [phone] Encounter Details Date Type Department Care Team (Late st Contact Info) Description 12/04/2003 Outpatient Historical [facility] [address] [facility] [address] [place] [phone] Tee Yates MD [address] 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
--- OUTSIDE RECORDS SUMMARY | 2024-11-16 09:12 | XMS_ITS | Encounter Summary ---
Author Organization [facility] Address [address] [place] [address] Care Team Providers Care Automation Analyst Name Role Phone Tee Esipnosa MD Primary Care Provider Encounter Details Date Type Department Care Team (Late st Contact Info) Description 12/25/2003 Outpatient Historical [facility] [address] [facility] [address] [place] [phone] Tee Yates MD [address] 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
--- OUTSIDE RECORDS SUMMARY | 2024-11-16 09:12 | XMS_ITS | Encounter Summary ---
Author Organization [facility] Address [address] [place] [address] Care Team Providers Care Revenue Stamp Cutter Name Role Phone Tee Espinosa MD Primary Care Provider [phone] Encounter Details Date Type Department Care Team (Late st Contact Info) Description 11/16/[address] [facility] [address] [facility] [facility] [place] [address] Jerry Mendosa MD [address] 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
--- OUTSIDE RECORDS SUMMARY | 2024-11-16 09:12 | XMS_ITS | Encounter Summary ---
Author Organization [facility] Address [address] [place] [address] Care Team Providers Care Director Of Construction Name Role Phone Tee Espinosa MD Primary Care Provider [phone] Encounter Details Date Type Department Care Team (Late st Contact Info) Description 11/12/2003 Outpatient Historical [facility] [address] [facility] [facility] [place] [address] Jerry Mendosa MD [address] 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
--- OUTSIDE RECORDS SUMMARY | 2024-11-16 09:12 | XMS_ITS | Encounter Summary ---
Author Organization [facility] Address [address] [place] [address] Care Team Providers Care Order Packer Or Packager Name Role Phone Tee Espinosa MD Primary Care Provider [phone] Encounter Details Date Type Department Care Team (Late st Contact Info) Description 11/27/2003 Outpatient Historical [facility] [address] [facility] [address] [place] [phone] Tee Yates MD [address] 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
--- OUTSIDE RECORDS SUMMARY | 2024-11-16 09:12 | XMS_ITS | Encounter Summary ---
Author Organization [facility] Address [address] [place] [address] Care Team Providers Care Lockstitch Binder Name Role Phone Tee Espinosa MD Primary Care Provider [phone] Encounter Details Date Type Department Care Team (Late st Contact Info) Description 11/13/2003 Outpatient Historical [facility] Support [facility] ([facility]) [address] 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
--- OUTSIDE RECORDS SUMMARY | 2024-11-16 09:12 | XMS_ITS | Continuity of Care Document ---
Author Organization [facility] Address [id number] [place] [address] [address] [place] [address] Phone Care Team Providers Care Stockroom Inventory Clerk Name Role Phone Dakota TOLEDO, Jack Unavailable [...] Providers Copied on Encounter [facility], [address] [place], [place] [address], [place], [place], [id number], [place] tel:[phone] [facility] No Information 8 Dakota Santiago. [address], [address], [place], [place], [id number], [place]. tel:[phone] Referring Provider: Jack gonzalez, [address], [place], [address] . tel:[phone] [facility], [address] [place], [place] [address], [place], [place], [address], [place] tel:[phone] [facility] No Information 6 Toña Sandhu. [address], [address], [place], [place], [address], [place]. tel:[phone] Referring Provider: Edson Miranda, [address], [place], [address] . tel:[phone] [facility], [address] [place] [address], [id number], tel:[phone] [facility] No Information 6 Toña Sandhu. [address], [address], [place], [place], [address], . tel:[phone] Referring Provider: Edson Ding MD P, [address], [place], [address] . tel:[phone] [facility], [address] [place] [address], [place], [place], [id number], tel:[phone] [facility] No Information 6 Toña Sandhu. [address], [address], [place], [place], [address], . tel:[phone] Referring Provider: Edson Ding MD P, [address], [place], [address] . tel:[phone] Family History Family Member Type Diagnosis Age At Onset No Information Payers Payer name Insurance type Covered republican ID Authoriza tion(s) Medicare Complete Advantage [facility] [id number] Social History Type Description Quantity Date Captured [...]
--- OUTSIDE RECORDS SUMMARY | 2024-11-16 09:12 | XMS_ITS | Clinical Summary ---
Author Organization [facility] Address [address] [place] [phone] Phone Care Team Providers Care Homebound Teacher Name Role Phone Pedro Bird MD Primary Care Provider Allergies No known active allergies Medications hydroCHLOROthia zide (HYDRODIURIL) 25 MG tablet Take 25 mg by mouth 1 (one) time each day 0 12/07/2018 Active atorvastatin (LIPITOR) 40 MG tablet Take 40 mg by mouth 1 (one) time each day in the evening 3 12/18/2018 Active meclizine (ANTIVERT) 25 MG tablet Take 25 mg by mouth 3 (three) times a day if needed 0 01/04/2019 Active montelukast (SINGULAIR) 10 MG tablet Take 10 mg by mouth every night 0 01/31/2019 Active amLODIPine (NORVASC) 10 MG tablet Take 10 mg by mouth 1 (one) time each day 09/25/2020 Active fluticasone (FLONASE) 50 MCG/ACT nasal spray USE 2 SPRAY(S) IN EACH NOSTRIL ONCE DAILY 10/28/2020 Active gabapentin (NEURONTIN) 100 MG capsule TAKE 1 CAPSULE BY MOUTH THREE TIMES DAILY FOR PAIN 11/13/2020 Active hydrALAZINE (APRESOLINE) 50 MG tablet Take 50 mg by mouth 3 (three) times a day 11/03/2020 Active lisinopril (PRINIVIL) 40 MG tablet Take 40 mg by mouth 1 (one) time each day 11/17/2020 Active loratadine (CLARITIN) 10 MG tablet Take 10 mg by mouth 1 (one) time each day 10/02/2020 Active LORazepam (ATIVAN) 0.5 MG tablet Take 0.5 mg by mouth 2 (two) times a day if needed for anxiety 11/03/2020 Active nabumetone (RELAFEN) 500 MG tablet Take 500 mg by mouth 2 (two) times a day 09/25/2020 Active Cholecalciferol (Vitamin D3) 25 MCG (1000 UT) capsule Take 2,000 Units by mouth Active Probiotic Product (PROBIOTIC-10 PO) Take by mouth Active Multiple Vitamin (multivitamin) capsule Take 1 capsule by mouth 1 (one) time each day Active aspirin 81 MG chewable tablet Chew 81 mg 1 (one) time each day Active tamsulosin (FLOMAX) 0.4 MG 24 hr capsule Take 1 capsule by mouth once daily 14 capsule 11/21/2021 Active Active Problems Problem Noted Date Diagnosed Date 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 DOI 01/22/2020-[place]. Biotronik remote monitoring. Follow with Dr Dee. Stage 3a chronic kidney disease 02/12/2019 Renal stone 02/12/2019 Other and unspecified hyperlipidemia 02/12/2019 Seasonal allergic rhinitis 02/12/2019 Immunizations Immunization Administration Dates Next Due Pneumococcal Conjugate 03/11/2016 Family History Medical History Relation Comments Kidney disease Neg Hx Social History Tobacco Use Types Packs/Day Years Used Date Smoking Tobacco: Never Smokeless Tobacco: Never Alcohol Use Standard Drinks/Week Comments Not Currently 0 (1 standard drink = 0.6 oz pur e alcohol) Sex and Gender Information Value Date Recorded Sex Assigned at Not on file Legal Sex Male 10:29 AM MDT Gender Identity Not on file Sexual Orientation Not on file Last Filed Vital Signs Vital Sign Reading Time Taken Comments Blood Pressure 138/70 06/08/2021 8:50 AM PAVING MACHINE OPERATOR Pulse 72 06/08/2021 8:50 AM PAVING MACHINE OPERATOR Temperature 35.7 C (96.3 F) 06/08/2021 8:50 AM PAVING MACHINE OPERATOR Respiratory Rate - - Oxygen Saturation - - Inhaled Oxygen Concentration - - Weight 83.9 kg (185 lb) 06/08/2021 8:50 AM PAVING MACHINE OPERATOR Height 167.6 cm (5' 6 ) 06/08/2021 8:50 AM PAVING MACHINE OPERATOR Body Mass Index 29.86 06/08/2021 8:50 AM PAVING MACHINE OPERATOR Plan of Treatment Health Maintenance Due Date Last Done Comments Pneumococcal PPSV23/PCV13 65 + Years / Low and Medium Risk (1 of 4 - PCV) 1996 Influenza Vaccine (Season Ended) 2025 Insurance [employer] MEDICARE Care Teams Homebound Teacher Relationship Specialty Start Date End Date Pedro Bird MD [address] [place] [address] PCP - General Internal Medicine 01/16/19
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
--- OUTSIDE RECORDS SUMMARY | 2024-11-16 09:12 | XMS_ITS | Encounter Summary ---
Author Organization [facility] Address [address] [place] [address] Care Team Providers Care Low Voltage Electrician Name Role Phone Tee Espinosa MD Primary Care Provider [phone] Encounter Details Date Type Department Care Team (Late st Contact Info) Description 11/14/2003 Outpatient Historical [facility] [address] [facility] [address] [place] [phone] Tee Yates MD [address] 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
--- OUTSIDE RECORDS SUMMARY | 2024-11-16 09:12 | XMS_ITS | Encounter Summary ---
Author Organization [facility] Address [address] [place] [address] Care Team Providers Care Analytical Lab Technician Name Role Phone Tee Espinosa MD Primary Care Provider [phone] Encounter Details Date Type Department Care Team (Latest Contact Info) Description 04/14/2004 Outpatient Historical [facility] Tee Yates MD [address] [place] [address] SCAR & FIBROSIS OF SKIN (Primary Dx) Social History Tobacco Use Types Packs/Day Years Used Date Smoking Tobacco: Never Assessed Sex and Gender Information Value Date Recorded Sex Assigned at Not on file Legal Sex Male 3:24 AM MUD MIXER Gender Identity Not on file Sexual Orientation Not on file documented as of this encounter Plan of Treatment Not on file documented as of this encounter Visit Diagnoses Diagnosis Scar condition and fibrosis of skin- Primary documented in this encounter Care Teams Analytical Lab Technician Relationship Specialty Start Date End Date Tee Espinosa MD [address] [place] [address] PCP - General 04/14/04 documented as of this encounter
--- OUTSIDE RECORDS SUMMARY | 2024-11-16 09:12 | XMS_ITS | Encounter Summary ---
Author Organization [facility] Address [address] [place] [address] Care Team Providers Care Mail Distribution Scheme Examiner Name Role Phone Tee Espinosa MD Primary Care Provider [phone] Encounter Details Date Type Department Care Team (Late st Contact Info) Description 01/15/2004 Outpatient Historical [facility] [address] [facility] [address] [place] [phone] Tee Yates MD [address] [facility] [address] [place], [place] [phone] Social History Tobacco Use Types Packs/Day Years Used Date Smoking Tobacco: Never Assessed Sex and Gender Information Value Date Recorded Sex Assigned at Not on file Legal Sex Male 3:24 AM DIRECTOR BUSINESS Gender Identity Not on file Sexual Orientation Not on file documented as of this encounter Plan of Treatment Not on file documented as of this encounter Visit Diagnoses Not on filedocumented in this encounter Care Teams Mail Distribution Scheme Examiner Relationship Specialty Start Date End Date Tee Espinosa MD [address] [place] [address] PCP - General 04/14/04 documented as of this encounter
--- OUTSIDE RECORDS SUMMARY | 2024-11-16 09:13 | XMS_ITS | Encounter Summary ---
Author Organization [facility] Address [address] [place] [address] Care Team Providers Care Art Objects Repairer Name Role Phone Tee Espinosa MD Primary Care Provider Encounter Details Date Type Department Care Team (Late st Contact Info) Description 10/27/2004 Outpatient Historical [facility] [address] [facility] [address] [place] [phone] Tee Yates MD [address] 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
--- OUTSIDE RECORDS SUMMARY | 2024-11-16 09:13 | XMS_ITS | Encounter Summary ---
Author Organization [facility] Address [address] [place] [address] Care Team Providers Care Tray Packer Name Role Phone Tee Espinosa MD Primary Care Provider [phone] Encounter Details Date Type Department Care Team (Late st Contact Info) Description 03/02/2005 Outpatient Historical [facility] [address] [facility] [address] [place] [phone] Tee Yates MD [address] 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
--- OUTSIDE RECORDS SUMMARY | 2024-11-16 09:13 | XMS_ITS | Encounter Summary ---
Author Organization [facility] Address [address] [place] [address] Care Team Providers Care Concrete Bucket Loader Name Role Phone Tee Espinosa MD Primary Care Provider [phone] Encounter Details Date Type Department Care Team (Latest Contact Info) Description 03/02/2005 Outpatient Historical [facility] Tee Yates MD [address] [place] [address] SCAR & FIBROSIS OF SKIN (Primary Dx) Social History Tobacco Use Types Packs/Day Years Used Date Smoking Tobacco: Never Assessed Sex and Gender Information Value Date Recorded Sex Assigned at Not on file Legal Sex Male 3:24 AM SHOTGUN SHELL ASSEMBLY MACHINE OPERATOR Gender Identity Not on file Sexual Orientation Not on file documented as of this encounter Plan of Treatment Not on file documented as of this encounter Procedures Procedure Name Priority Date/Time Associated Diagnosis Comments HEMOGLOBIN AND HEMATOCRIT Routine 02/23/2005 10:21 AM CDT documented in this encounter Results * HEMOGLOBIN AND HEMATOCRIT (02/23/2005 10:21 AM CDT) HEMOGLOBIN 15.2 13.6 - 16.5 g/dL INTERFACE SYSTEM HEMATOCRIT 44.2 40.0 - 48.0 % INTERFACE SYSTEM 02/23/2005 10:2 1 AM CDT us Tee Yates MD HEMATOLOGY ORDERABLES Final Res ult INTERFACE SYSTEM Refer to clinic/hospital department documented in this encounter Visit Diagnoses Diagnosis Scar condition and fibrosis of skin- Primary documented in this encounter Care Teams Concrete Bucket Loader Relationship Specialty Start Date End Date Tee Espinosa MD [address] [place] [address] PCP - General 04/14/04 documented as of this encounter
--- OUTSIDE RECORDS SUMMARY | 2024-11-16 09:13 | XMS_ITS | Encounter Summary ---
Author Organization [facility] Address [address] [place] [address] Care Team Providers Care Channel Development Manager Name Role Phone Tee Espinosa MD Primary Care Provider [phone] Encounter Details Date Type Department Care Team (Late st Contact Info) Description 08/04/2004 Outpatient Historical [facility] [address] [facility] [address] [place] [phone] Tee Yates MD [address] [facility] [address] [place], [place] [phone] Social History Tobacco Use Types Packs/Day Years Used Date Smoking Tobacco: Never Assessed Sex and Gender Information Value Date Recorded Sex Assigned at Not on file Legal Sex Male 3:24 AM DE ICER KIT ASSEMBLER Gender Identity Not on file Sexual Orientation Not on file documented as of this encounter Plan of Treatment Not on file documented as of this encounter Visit Diagnoses Not on filedocumented in this encounter Care Teams Channel Development Manager Relationship Specialty Start Date End Date Tee Espinosa MD [address] [place] [address] PCP - General 04/14/04 documented as of this encounter
--- OUTSIDE RECORDS SUMMARY | 2024-11-16 09:13 | XMS_ITS | Encounter Summary ---
Author Organization [facility] Address [address] [place] [address] Care Team Providers Care Carpenter Name Role Phone Tee Espinosa MD Primary Care Provider [phone] Encounter Details Date Type Department Care Team (Late st Contact Info) Description 08/04/2004 Outpatient Historical [facility] [address] [facility] [address] [place] [phone] Tee Yates MD [address] 

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
--- OUTSIDE RECORDS SUMMARY | 2024-11-16 09:13 | XMS_ITS | Encounter Summary ---
Author Organization [facility] Address [address] [place] [address] Care Team Providers Care Solution Make Up Operator Name Role Phone Tee Espinosa MD Primary Care Provider [phone] Encounter Details Date Type Department Care Team (Late st Contact Info) Description 03/08/2005 Outpatient Historical [facility] [address] [facility] [address] [place] [phone] Tee Yates MD [address] 

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
--- OUTSIDE RECORDS SUMMARY | 2024-11-16 09:13 | XMS_ITS | Encounter Summary ---
Author Organization [facility] Address [address] [place] [address] Care Team Providers Care National Account Representative Name Role Phone Tee Espinosa MD Primary Care Provider [phone] Encounter Details Date Type Department Care Team (Late st Contact Info) Description 03/09/2006 Outpatient Historical [facility] [address] [facility] [address] [place] [phone] Tee Yates MD [address] 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
--- OUTSIDE RECORDS SUMMARY | 2024-11-16 09:13 | XMS_ITS | Encounter Summary ---
Author Organization [facility] Address [address] [place] [address] Care Team Providers Care Senior Court Office Assistant Name Role Phone Tee Espinosa MD Primary Care Provider [phone] Encounter Details Date Type Department Care Team (Late st Contact Info) Description 03/17/2005 Outpatient Historical [facility] [address] [facility] [address] [place] [phone] Tee Yates MD [address] 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
--- OUTSIDE RECORDS SUMMARY | 2024-11-16 09:13 | XMS_ITS | Encounter Summary ---
Author Organization [facility] Address [address] [place] [address] Care Team Providers Care Documentation Coordinator Name Role Phone Tee Espinosa MD Primary Care Provider [phone] Encounter Details Date Type Department Care Team (Late st Contact Info) Description 12/15/2005 Outpatient Historical [facility] [address] [facility] [address] [place] [phone] Tee Yates MD [address] [facility] [address] [place], [place] [phone] Social History Tobacco Use Types Packs/Day Years Used Date Smoking Tobacco: Never Assessed Sex and Gender Information Value Date Recorded Sex Assigned at Not on file Legal Sex Male 3:24 AM FOLLOW UP CLERK Gender Identity Not on file Sexual Orientation Not on file documented as of this encounter Plan of Treatment Not on file documented as of this encounter Visit Diagnoses Not on filedocumented in this encounter Care Teams Documentation Coordinator Relationship Specialty Start Date End Date Tee Espinosa MD [address] [place] [phone] PCP - General 04/14/04 documented as of this encounter
--- OUTSIDE RECORDS SUMMARY | 2024-11-16 09:13 | XMS_ITS | Encounter Summary ---
Author Organization [facility] Address [address] [place] [address] Care Team Providers Care Specialty Department Supervisor Name Role Phone Tee Espinosa MD Primary Care Provider [phone] Encounter Details Date Type Department Care Team (Late st Contact Info) Description 10/30/2004 Outpatient Historical [facility] [address] [facility] [address] [place] [phone] Tee Yates MD [address] 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
--- OUTSIDE RECORDS SUMMARY | 2024-11-16 09:13 | XMS_ITS | Encounter Summary ---
Author Organization [facility] Address [address] [place] [address] Care Team Providers Care Dentist Private Practice Name Role Phone Tee Espinosa MD Primary Care Provider [phone] Encounter Details Date Type Department Care Team (Late st Contact Info) Description 10/05/2005 Outpatient Historical [facility] ([facility]) [address] [place] [phone] Nba Ulloa MD NO ADDRESS ON FILE Social History Tobacco Use Types Packs/Day Years Used Date Smoking Tobacco: Never Assessed Sex and Gender Information Value Date Recorded Sex Assigned at Not on file Legal Sex Male 3:24 AM DATA DEVELOPER Gender Identity Not on file Sexual Orientation Not on file documented as of this encounter Plan of Treatment Not on file documented as of this encounter Visit Diagnoses Not on filedocumented in this encounter Care Teams Dentist Private Practice Relationship Specialty Start Date End Date Tee Espinosa MD [address] [place] [phone] PCP - General 04/14/04 documented as of this encounter
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
--- OUTSIDE RECORDS SUMMARY | 2024-11-16 09:13 | XMS_ITS | Encounter Summary ---
Author Organization [facility] Address [address] [place] [address] Care Team Providers Care Institution Director Name Role Phone Tee Espinosa MD Primary Care Provider [phone] Encounter Details Date Type Department Care Team (Latest Contact Info) Description 10/27/2004 Outpatient Historical [facility] Tee Yates MD [address] [place] [phone] SCAR & FIBROSIS OF SKIN (Primary Dx) Social History Tobacco Use Types Packs/Day Years Used Date Smoking Tobacco: Never Assessed Sex and Gender Information Value Date Recorded Sex Assigned at Not on file Legal Sex Male 3:24 AM ELEVATOR STARTER Gender Identity Not on file Sexual Orientation Not on file documented as of this encounter Plan of Treatment Not on file documented as of this encounter Procedures Procedure Name Priority Date/Time Associated Diagnosis Comments HEMOGLOBIN AND HEMATOCRIT Routine 10/21/2004 10:13 AM CDT documented in this encounter Results * HEMOGLOBIN AND HEMATOCRIT (10/21/2004 10:13 AM CDT) HEMOGLOBIN 14.6 13.6 - 16.5 g/dL INTERFACE SYSTEM HEMATOCRIT 43.8 40.0 - 48.0 % INTERFACE SYSTEM 10/21/2004 10:1 3 AM CDT us Tee Yates MD HEMATOLOGY ORDERABLES Final Res ult INTERFACE SYSTEM Refer to clinic/hospital department documented in this encounter Visit Diagnoses Diagnosis Scar condition and fibrosis of skin- Primary documented in this encounter Care Teams Institution Director Relationship Specialty Start Date End Date Tee Espinosa MD [address] [place] [phone] PCP - General 04/14/04 documented as of this encounter
--- OUTSIDE RECORDS SUMMARY | 2024-11-16 09:13 | XMS_ITS | Encounter Summary ---
Author Organization [facility] Address [address] [place] [address] Care Team Providers Care Mold Polisher Name Role Phone Tee Espinosa MD Primary Care Provider [phone] Encounter Details Date Type Department Care Team (Late st Contact Info) Description 01/12/2006 Outpatient Historical [facility] [address] [facility] [address] [place] [phone] Tee Yates MD [address] [facility] [address] [place], [place] [phone] Social History Tobacco Use Types Packs/Day Years Used Date Smoking Tobacco: Never Assessed Sex and Gender Information Value Date Recorded Sex Assigned at Not on file Legal Sex Male 3:[address] SUPERVISOR OF ENGINES Gender Identity Not on file Sexual Orientation Not on file documented as of this encounter Plan of Treatment Not on file documented as of this encounter Visit Diagnoses Not on filedocumented in this encounter Care Teams Mold Polisher Relationship Specialty Start Date End Date Tee Espinosa MD [address] [place] [phone] PCP - General 04/14/04 documented as of this encounter
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
--- OUTSIDE RECORDS SUMMARY | 2024-11-16 09:13 | XMS_ITS | Encounter Summary ---
Author Organization [facility] Address [address] [place] [address] Care Team Providers Care Dispatcher Chief Coal Slurry Name Role Phone Tee Espinosa MD Primary Care Provider [phone] Encounter Details Date Type Department Care Team (Latest Contact Info) Description 08/04/2004 Outpatient Historical [facility] Tee Yates MD [address] [place] [address] MICROSTOMIA (Primary Dx) Social History Tobacco Use Types Packs/Day Years Used Date Smoking Tobacco: Never Assessed Sex and Gender Information Value Date Recorded Sex Assigned at Not on file Legal Sex Male 3:24 AM MOBILE QA TESTER Gender Identity Not on file Sexual Orientation Not on file documented as of this encounter Plan of Treatment Not on file documented as of this encounter Procedures Procedure Name Priority Date/Time Associated Diagnosis Comments HEMOGLOBIN AND HEMATOCRIT Routine 08/04/2004 11:02 AM MOBILE QA TESTER documented in this encounter Results * HEMOGLOBIN AND HEMATOCRIT (08/04/2004 11:02 AM MOBILE QA TESTER) HEMOGLOBIN 15.9 13.6 - 16.5 g/dL INTERFACE SYSTEM HEMATOCRIT 45.7 40.0 - 48.0 % INTERFACE SYSTEM 08/04/2004 11:0 2 AM MOBILE QA TESTER us Tee Yates MD HEMATOLOGY ORDERABLES Final Res ult INTERFACE SYSTEM Refer to clinic/hospital department documented in this encounter Visit Diagnoses Diagnosis Microstomia- Primary documented in this encounter Care Teams Dispatcher Chief Coal Slurry Relationship Specialty Start Date End Date Tee Espinosa MD [address] [place] [address] PCP - General 04/14/04 documented as of this encounter
--- OUTSIDE RECORDS SUMMARY | 2024-11-16 09:13 | XMS_ITS | Encounter Summary ---
Author Organization [facility] Address [address] [place] [address] Care Team Providers Care Professional Security Officer Name Role Phone Tee Espinosa MD Primary Care Provider [phone] Encounter Details Date Type Department Care Team (Late st Contact Info) Description 04/20/2006 Outpatient Historical [facility] [address] [facility] [address] [place] [phone] Tee Yates MD [address] 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
--- OUTSIDE RECORDS SUMMARY | 2024-11-16 09:13 | XMS_ITS | Encounter Summary ---
Author Organization [facility] Address [address] [place] [address] Care Team Providers Care Suction Roller Name Role Phone Tee Espinosa MD Primary Care Provider [phone] Encounter Details Date Type Department Care Team (Late st Contact Info) Description 08/18/2005 Outpatient Historical [facility] [address] [facility] [address] [place] [phone] Tee Yates MD [address] 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
--- OUTSIDE RECORDS SUMMARY | 2024-11-16 09:13 | XMS_ITS | Encounter Summary ---
Author Organization [facility] Address [address] [place] [address] Care Team Providers Care Port Patrol Officer Name Role Phone Tee Espinosa MD Primary Care Provider [phone] Encounter Details Date Type Department Care Team (Late st Contact Info) Description 11/11/2004 Outpatient Historical [facility] [address] [facility] [address] [place] [phone] Tee Yates MD [address] 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
--- OUTSIDE RECORDS SUMMARY | 2024-11-16 09:13 | XMS_ITS | Encounter Summary ---
Author Organization [employer] Address 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6 - 16.5 g/dL INTERFACE SYSTEM HEMATOCRIT 45.1 40.0 - 48.0 % INTERFACE SYSTEM 11/23/2005 5:50 AM CDT us Tee Yates MD HEMATOLOGY ORDERABLES Final Res ult INTERFACE SYSTEM Refer to clinic/hospital department documented in this encounter Visit Diagnoses Diagnosis Scar condition and fibrosis of skin- Primary documented in this encounter Care Teams Vendor Management Associate Relationship Specialty Start Date End Date Tee Espinosa MD [address] [place] [address] PCP - General 04/14/04 documented as of this encounter
--- OUTSIDE RECORDS SUMMARY | 2024-11-16 09:13 | XMS_ITS | Encounter Summary ---
Author Organization [facility] Address [address] [place] [address] Care Team Providers Care Adhesive Bandage Machine Operator Name Role Phone Tee Espinosa MD Primary Care Provider [phone] Encounter Details Date Type Department Care Team (Late st Contact Info) Description 09/16/[address] [facility] [address] [facility] [address] [place] [phone] Tee Yates MD [address] 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
--- OUTSIDE RECORDS SUMMARY | 2024-11-16 09:13 | XMS_ITS | Encounter Summary ---
Author Organization [facility] Address [address] [place] [address] Care Team Providers Care Assistant Designer Name Role Phone Tee Espinosa MD Primary Care Provider [phone] Encounter Details Date Type Department Care Team (Late st Contact Info) Description 07/06/2005 Outpatient Historical [facility] [address] [facility] [address] [phone] Zachary Segundo MD [address] [facility] [place] [phone] Social History Tobacco Use Types Packs/Day Years Used Date Smoking Tobacco: Never Assessed Sex and Gender Information Value Date Recorded Sex Assigned at Not on file 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
--- OUTSIDE RECORDS SUMMARY | 2024-11-16 09:13 | XMS_ITS | Encounter Summary ---
Author Organization [facility] Address [address] [place] [address] Care Team Providers Care Cath Lab Radiological Technologist Name Role Phone Tee Espinosa MD Primary Care Provider [phone] Encounter Details Date Type Department Care Team (Late st Contact Info) Description 07/21/2005 Outpatient Historical [facility] [address] [facility] [address] [place] [phone] Tee Yates MD [address] 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
--- OUTSIDE RECORDS SUMMARY | 2024-11-16 09:13 | XMS_ITS | Encounter Summary ---
Author Organization [facility] Address [address] [place] [address] Care Team Providers Care Military Pay Clerk Name Role Phone Tee Espinosa MD Primary Care Provider [phone] Encounter Details Date Type Department Care Team (Late st Contact Info) Description 11/26/2005 Outpatient Historical [facility] [address] [facility] [address] [place] [phone] Tee Yates MD [address] 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
--- OUTSIDE RECORDS SUMMARY | 2024-11-16 09:13 | XMS_ITS | Encounter Summary ---
Author Organization [employer] Address [address] [place] [address] Care Team Providers Care Wig Maker Name Role Phone Tee Espinosa MD Primary Care Provider [phone] Encounter Details Date Type Department Care Team (Late st Contact Info) Description 10/21/2004 Outpatient Historical [facility] [address] 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
--- OUTSIDE RECORDS SUMMARY | 2024-11-16 09:13 | XMS_ITS | Encounter Summary ---
Author Organization [facility] Address [address] [place] [address] Care Team Providers Care Ludlow Machine Operator Name Role Phone Tee Espinosa MD Primary Care Provider [phone] Encounter Details Date Type Department Care Team (Late st Contact Info) Description 07/06/2005 Outpatient Historical [facility] [address] [facility] [address] [place] [phone] Tee Yates MD [address] 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
--- OUTSIDE RECORDS SUMMARY | 2024-11-16 09:13 | XMS_ITS | Encounter Summary ---
Author Organization [facility] Address [address] [place] [address] Care Team Providers Care Skin Washer Name Role Phone Tee Espinosa MD Primary Care Provider [phone] Encounter Details Date Type Department Care Team (Late st Contact Info) Description 06/17/2004 Outpatient Historical [facility] [address] [facility] [address] [place] [phone] Tee Yates MD [address] 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
--- OUTSIDE RECORDS SUMMARY | 2024-11-16 09:13 | XMS_ITS | Encounter Summary ---
Author Organization [facility] Address [address] [place] [address] Care Team Providers Care International Representative Name Role Phone Tee Espinosa MD Primary Care Provider [phone] Encounter Details Date Type Department Care Team (Late st Contact Info) Description 05/06/2004 Outpatient Historical [facility] [address] [facility] [address] [place] [phone] Tee Yates MD [address] 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
--- OUTSIDE RECORDS SUMMARY | 2024-11-16 09:13 | XMS_ITS | Encounter Summary ---
Author Organization [facility] Address [address] [place] [address] Care Team Providers Care Manager Inventory Management Name Role Phone Tee Espinosa MD Primary Care Provider [phone] Encounter Details Date Type Department Care Team (Late st Contact Info) Description 04/21/2005 Outpatient Historical [facility] [address] [facility] [address] [place] [phone] Tee Yates MD [address] 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
--- OUTSIDE RECORDS SUMMARY | 2024-11-16 09:13 | XMS_ITS | Referral Summary ---
Author Organization [facility] [address] Address [address] [place] [address] Care Team Providers Care Rn School Name Role Phone Pedro Bird MD Primary Care Provider Adriane Agee MD Unavailable [phone] Allergies No known active allergies Medications lisinopriL [...] capsule by mouth daily after lunch Active owjupwpogdtu-Ou-zp on-minerals 18-0.4 mg tabletIndications: Vitamin Deficiency Prevention Take 1 tablet by mouth every morning Active vit C,Q-Zr-jckqb-lutei n-zeaxan (PreserVision AREDS-2) 250-90-40-1 mg capsuleIndications :eye health Take 1 capsule by mouth 3 (three) times a day Active fexofenadine (HUMPHREY) 180 mg tabletIndications: Seasonal Allergic Rhinitis Take 180 mg by mouth as needed Active ascorbic shbe-xakxkszl-irq 1,000 mg powder effervescent in packetIndications: supplement [...] Pneumococcal Polysaccharide PPV23 05/01/2020 [employer] Recombinant 10/22/2020,05/13/2020 Social History Tobacco Use Types Packs/Day Years [...] on file 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 Sex Male 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 Gender Identity Not on file Sexual [...] 02/11/2023 11:17 AM CDT Plan of Treatment Not on file Medical Devices Implanted Type Area Software Developer Mid Level Device Identifier Shelf Expiration Date Model / Serial / Lot Biotronick-Pace maker-01/22/2020 Implanted:01/21 (Quantity not on file) Left: Chest avox Jayla Vascu-Guard 8x.8cm Peripheral Patch Vascular Bovine Pericardium [id number] - [id number] Implanted:Qty: 1 on 11/25/2021 by Adriane Agee MD at [facility] Right: Carotid [facility] Jayla 07/14/2026 [id number] / / [id number] Insurance [facility] Address: [address] [address] [place] [address] [employer]HC MEDICARE ADVANTAGE [facility] Address: [address] [address] [place] [address] [facility] Address: [address] [address] [place] [address] Advance Directives For more information, please contact: [phone] * Full Code (Latest Code Status on File) Date Activated Date Inactivated Comments 11/25/2021 9:21 PM 11/27/2021 6:37 PM Care Teams Rn School Relationship Specialty Start Date End Date Pedro Bird MD PCP - General Family Practice 01/21/20 Adriane Agee MD Surgeon Vascular Surgery 11/13/21
--- OUTSIDE RECORDS SUMMARY | 2024-11-16 09:13 | XMS_ITS | Encounter Summary ---
Author Organization [facility] Address [address] [place] [address] Care Team Providers Care Fish Stringer Assembler Name Role Phone Tee Espinosa MD Primary Care Provider [phone] Encounter Details Date Type Department Care Team (Late st Contact Info) Description 04/21/2004 Outpatient Historical [facility] [address] [facility] [address] [place] [phone] Tee Yates MD [address] 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
--- OUTSIDE RECORDS SUMMARY | 2024-11-16 09:13 | XMS_ITS | Encounter Summary ---
Author Organization [facility] Address [address] [place] [address] Care Team Providers Care Chicken Handler Name Role Phone Tee Espionsa MD Primary Care Provider [phone] Encounter Details Date Type Department Care Team (Late st Contact Info) Description 01/20/2005 Outpatient Historical [facility] [address] [facility] [address] [place] [phone] Tee Yates MD [address] 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
--- OUTSIDE RECORDS SUMMARY | 2024-11-16 09:13 | XMS_ITS | Clinical Summary ---
Author Organization [facility] Address [address] 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
--- OUTSIDE RECORDS SUMMARY | 2024-11-16 09:13 | XMS_ITS | Encounter Summary ---
Author Organization [facility] Address 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 Gender Identity Not on file Sexual Orientation Not on file documented as of this encounter Plan of Treatment Not on file documented as of this encounter Procedures Procedure Name Priority Date/Time Associated Diagnosis Comments HEMOGLOBIN AND HEMATOCRIT Routine 06/28/2005 9:43 AM WELDING MACHINE FEEDER BASIC METABOLIC PANEL Routine 06/28/2005 9:43 AM WELDING MACHINE FEEDER documented in this encounter Results * BASIC METABOLIC PANEL (06/28/2005 9:43 AM WELDING MACHINE FEEDER) GLUCOSE 107 65 - 109 mg/dL INTERFACE SYSTEM CREATININE 1.3 0.5 - 1.3 mg/dL INTERFACE SYSTEM CALCIUM 8.8 8.6 - 10.2 mg/dL INTERFACE SYSTEM BUN 17 6 - 20 mg/dL INTERFACE SYSTEM SODIUM 139 135 - 145 mmol/L INTERFACE SYSTEM POTASSIUM 4.6 3.5 - 4.9 mmol/L INTERFACE SYSTEM CHLORIDE 105 96 - 108 mmol/L INTERFACE SYSTEM CO2 26 22 - 30 mmol/L INTERFACE SYSTEM 06/28/2005 9:43 AM WELDING MACHINE FEEDER us Tee Yates MD CHEMISTRY ORDERABLES Final Resu lt INTERFACE SYSTEM Refer to clinic/hospital department * HEMOGLOBIN AND HEMATOCRIT (06/28/2005 9:43 AM WELDING MACHINE FEEDER) HEMOGLOBIN 15.1 13.6 - 16.5 g/dL INTERFACE SYSTEM HEMATOCRIT 44.5 40.0 - 48.0 % INTERFACE SYSTEM 06/28/2005 9:43 AM WELDING MACHINE FEEDER us Tee Yates MD HEMATOLOGY ORDERABLES Final Res ult Performing Organization Address [facility] Co de Phone Number INTERFACE SYSTEM Refer to clinic/hospital department documented in this encounter Visit Diagnoses Diagnosis Scar condition and fibrosis of skin- Primary documented in this encounter Care Teams Deck Worker Relationship Specialty Start Date End Date Tee Espinosa MD [address] [place] [phone] PCP - General 04/14/04 documented as of this encounter
--- OUTSIDE RECORDS SUMMARY | 2024-11-16 09:13 | XMS_ITS | Encounter Summary ---
Author Organization [facility] Address [address] [place] [address] Care Team Providers Care Research Manufacturing Operator Name Role Phone Tee Espinosa MD Primary Care Provider [phone] Encounter Details Date Type Department Care Team (Late st Contact Info) Description 11/23/2005 Outpatient Historical [facility] [address] [facility] [address] [place] [phone] Tee Yates MD [address] 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
--- OUTSIDE RECORDS SUMMARY | 2024-11-16 09:13 | XMS_ITS | Encounter Summary ---
Author Organization [facility] Address [address] [place] [address] Care Team Providers Care Admissions Specialist Name Role Phone Tee Espinosa MD Primary Care Provider [phone] Encounter Details Date Type Department Care Team (Late st Contact Info) Description 09/30/2004 Outpatient Historical [facility] [address] [facility] [address] [place] [phone] Tee Yates MD [address] 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
--- OUTSIDE RECORDS SUMMARY | 2024-11-16 09:13 | XMS_ITS | Encounter Summary ---
Author Organization [facility] Address [address] [place] [address] Care Team Providers Care Line Production Cook Name Role Phone Tee Espinosa MD Primary Care Provider [phone] Encounter Details Date Type Department Care Team (Late st Contact Info) Description 08/12/2004 Outpatient Historical [facility] [address] [facility] [address] [phone] Zachary Segundo MD [address] [facility] [address] [place] [address] Social History Tobacco Use Types Packs/Day Years Used Date Smoking Tobacco: Never Assessed Sex and Gender Information Value Date Recorded Sex Assigned at Not on file 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
--- OUTSIDE RECORDS SUMMARY | 2024-11-16 09:13 | XMS_ITS | Encounter Summary ---
Author Organization [facility] Address [address] [place] [address] Care Team Providers Care Program Director Cable Television Name Role Phone Tee Espinosa MD Primary Care Provider [phone] Encounter Details Date Type Department Care Team (Late st Contact Info) Description 12/09/2004 Outpatient Historical [facility] [address] [facility] [address] [place] [phone] Tee Yates MD [address] 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
--- OUTSIDE RECORDS SUMMARY | 2024-11-16 09:13 | XMS_ITS | Encounter Summary ---
Author Organization [facility] Address [address] [place] [address] Care Team Providers Care Communication Lecturer Name Role Phone Tee Espinosa MD Primary Care Provider [phone] Encounter Details Date Type Department Care Team (Late st Contact Info) Description 08/07/2004 Outpatient Historical [facility] [address] [facility] [address] [phone] Zachary Segundo MD [address] [address] [place] [address] Social History Tobacco Use Types Packs/Day Years Used Date Smoking Tobacco: Never Assessed Sex and Gender Information Value Date Recorded Sex Assigned at Not on file 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
[2024-11-16 19:49] LABS: Hemoglobin A1C 5.6 % (<5.7)
[2024-11-16 19:55] LABS: Vitamin D 25 Hydroxy 53.3 ng/mL
[2024-11-16 20:23] LABS: Basophils Absolute Auto 0.1 K/mm3 (0.0-0.1); Basophils Percent Auto 0.8 % (0.2-1.2); Eosinophils Absolute Auto 0.3 K/mm3 (0-0.3); Eosinophils Percent Auto 2.4 % (0-4.4); Hemoglobin 15.1 g/dL (14.0-18.0); Immature Granulocyte Absolute 0.03 K/mm3 (0.00-0.031); Immature Granulocyte Percent A 0.3 % (0-0.5); Lymphocytes Absolute Auto 1.46 K/mm3 (0.9-3.2); Mean Corpuscular HGB Conc 32.1 g/dl (32-36); Mean Corpuscular Hemoglobin 29.2 pg (26-34); Mean Corpuscular Volume 90.9 fl (80-100); Mean Platelet Volume 11.4 fl (7.4-10.4); Monocytes Absolute Auto 0.9 K/mm3 (0.1-0.6); Monocytes Percent Auto 8.9 % (2.6-8.5); Neutrophils Absolute Auto 7.7 K/mm3 (1.3-6.7); Neutrophils Percent Auto 73.6 % (45.5-73.1); Platelet Count Result 247 k/mm3 (150-375); Red Blood Count 5.17 M/mm3 (4.6-6.20); White Blood Count 10.4 K/mm3 (4.5-10.0)
[2024-11-16 20:28] LABS: Alanine Aminotransferase 33 U/L (6-50); Albumin Level 4.3 g/dL (3.5-5.1); Alkaline Phosphatase 121 U/L (38-126); Anion Gap 10 mmol/L (4-12); Aspartate Amino Transferase 44 U/L (17-59); Blood Urea Nitrogen 16 mg/dL (9-20); Calcium 9.2 mg/dL (8.4-10.2); Carbon Dioxide 27 mmol/L (22-30); Chloride 104 mmol/L (98-107); Cholesterol 123 mg/dL (0-200); Estimated Glomerular Filt Rate 47; Glucose 103 mg/dL (65-110); HDL Direct 38 mg/dL; Potassium 4.4 mmol/L (3.4-5.0); Sodium 141 mmol/L (137-145); Triglycerides 93 mg/dL (<150)
[2024-11-16 20:39] LABS: LDL Cholesterol Direct 54 mg/dL
[2024-11-16 20:54] LABS: Prostate Specific Antigen 3.3 ng/mL (< OR = 4.0)
== END 2024-11-16 09:08 | disposition home or self-care (01) ==
LOC: ANHGOSHLAB 09:08
PROVIDERS: PCP Family Medicine; Visit Provider Nurse Practitioner Family
DX: Z12.5 Encounter for screening for malignant neoplasm of prostate (principal); E78.5 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, unspecified; E55.9 Vitamin D deficiency, unspecified; I10 Essential (primary) hypertension; R73.03 Prediabetes; Z12.11 Encounter for screening for malignant neoplasm of colon
CPT/HCPCS: 36415; 80053; 80061; 82306; 83036; 84153; 84443; 85025; G0103

== ENCOUNTER 2024-12-31 11:41 | Emergency (ER) | payer MEDICARE, SELFPAY ==
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
[2024-12-31 11:49] VITALS: BP 112/55; PULSE 74; RESP 16; TEMP 36.6; O2SAT 98
== END 2024-12-31 12:15 | disposition home or self-care (01) ==
PROVIDERS: Emergency Provider Nurse Practitioner Family; PCP Family Medicine
DX: J00 Acute nasopharyngitis [common cold] (principal); Z86.73 Personal history of transient ischemic attack (TIA), and cerebral infarction without residual deficits; I12.9 Hypertensive chronic kidney disease with stage 1 through stage 4 chronic kidney disease, or unspecified chronic kidney disease; N18.30 Chronic kidney disease, stage 3 unspecified
CPT/HCPCS: 99213; G0463

== ENCOUNTER 2025-01-31 07:05 | Outpatient (CLI) | payer MEDICARE, SELFPAY ==
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
--- OUTSIDE RECORDS SUMMARY | 2025-01-31 07:08 | XMS_ITS | Continuity of Care Document ---
Author Organization [facility] Address [id number] [place] [address] [address] [place] [address] Phone Care Team Providers Care Rodeo Rider Name Role Phone Dakota TOLEDO, Jack Unavailable [...] Providers Copied on Encounter [facility], [address] [place], [place] [address], [place], [place], [id number], [place] tel:[phone] [facility] No Information 8 Dakota Santiago. [address], [address], [place], [place], [address], [place]. tel:[phone] Referring Provider: Jack gonzalez, [address], [place], [address] . tel:[phone] [facility], [address] [place], [place] [address], [place], [place], [address], [place] tel:[phone] [facility] [place] No Information 6 Toña Sandhu. [address], [address], [place], [place], [address], [place]. tel:[phone] Referring Provider: Edson Miranda, [address], [place], [address] . tel:[phone] [facility], [address] [place] [address], [id number], tel:[phone] [facility] No Information 6 Toña Sandhu. [address], [address], [place], [place], [address], . tel:[phone] Referring Provider: Edson Ding MD P, [address], [place], [address] . tel:[phone] [facility], [address] [place] [address], [place], [place], [id number], tel:[phone] [facility] No Information 6 Toña Sandhu. [address], [address], [place], [place], [address], . tel:[phone] Referring Provider: Edson Ding MD P, [address], [place], [address] . tel:[phone] Family History Family Member Type Diagnosis Age At Onset No Information Payers Payer name Insurance type Covered alliance party ID Authoriza tion(s) Medicare Complete Advantage [facility] [id number] Social History Type Description Quantity Date Captured [...]
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
--- OUTSIDE RECORDS SUMMARY | 2025-01-31 07:08 | XMS_ITS | Encounter Summary ---
Author Organization [facility] Address [address] [place] [address] Care Team Providers Care Sed High School Teacher Name Role Phone Tee Espinosa MD Primary Care Provider [phone] Encounter Details Date Type Department Care Team (Late st Contact Info) Description 02/12/2004 Outpatient Historical [facility] [address] [facility] [address] [place] [phone] Tee Yates MD [address] 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
--- OUTSIDE RECORDS SUMMARY | 2025-01-31 07:08 | XMS_ITS | Encounter Summary ---
Author Organization [facility] Address [address] [place] [address] Care Team Providers Care Valet Parking Attendant Name Role Phone Tee Espinosa MD Primary Care Provider [phone] Encounter Details Date Type Department Care Team (Late st Contact Info) Description 03/25/2004 Outpatient Historical [facility] [address] [facility] [address] [place] [phone] Tee Yates MD [address] 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
--- OUTSIDE RECORDS SUMMARY | 2025-01-31 07:09 | XMS_ITS | Encounter Summary ---
Author Organization [facility] Address [address] [place] [address] Care Team Providers Care Java Developer With Security Clearance Name Role Phone Tee Espinosa MD Primary Care Provider [phone] Encounter Details Date Type Department Care Team (Late st Contact Info) Description 11/16/2003 Outpatient Historical [facility] [address] [facility] [facility] [place] [address] Jerry Mendosa MD [address] 

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
--- OUTSIDE RECORDS SUMMARY | 2025-01-31 07:09 | XMS_ITS | Encounter Summary ---
Author Organization [facility] Address 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
--- OUTSIDE RECORDS SUMMARY | 2025-01-31 07:09 | XMS_ITS | Encounter Summary ---
Author Organization [facility] Address [address] [place] [address] Care Team Providers Care Fondant Puff Maker Name Role Phone Tee Espinosa MD Primary Care Provider [phone] Encounter Details Date Type Department Care Team (Late st Contact Info) Description 11/12/2003 Outpatient Historical [facility] [address] [facility] [facility] [place] [address] Jerry Mendosa MD [address] 

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
--- OUTSIDE RECORDS SUMMARY | 2025-01-31 07:09 | XMS_ITS | Encounter Summary ---
Author Organization [facility] Address [address] [place] [address] Care Team Providers Care Store Receiver Name Role Phone Tee Espinosa MD Primary Care Provider [phone] Encounter Details Date Type Department Care Team (Late st Contact Info) Description 01/15/2004 Outpatient Historical [facility] [address] [facility] [address] [place] [phone] Tee Yates MD [address] [facility] [address] [place], [place] [phone] Social History Tobacco Use Types Packs/Day Years Used Date Smoking Tobacco: Never Assessed Sex and Gender Information Value Date Recorded Sex Assigned at Not on file Legal Sex Male 3:24 AM NEGOTIATIONS DIRECTOR Gender Identity Not on file Sexual Orientation Not on file documented as of this encounter Plan of Treatment Not on file documented as of this encounter Visit Diagnoses Not on filedocumented in this encounter Care Teams Store Receiver Relationship Specialty Start Date End Date Tee Espinosa MD [address] [place] [address] PCP - General 04/14/04 documented as of this encounter
--- OUTSIDE RECORDS SUMMARY | 2025-01-31 07:09 | XMS_ITS | Encounter Summary ---
Author Organization [facility] Address [address] [place] [address] Care Team Providers Care Obstetrics Tech Name Role Phone Tee Espinosa MD Primary Care Provider [phone] Encounter Details Date Type Department Care Team (Late st Contact Info) Description 11/27/2003 Outpatient Historical [facility] [address] [facility] [address] [place] [phone] Tee aYtes MD [address] [facility] [address] [place], [place] [phone] Social History Tobacco Use Types Packs/Day Years [...] on filedocumented in this encounter Care Teams Obstetrics Tech Relationship Specialty Start Date End Date Tee Espinosa MD [place] [address] PCP - General 04/14/04 documented as of this encounter
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
--- OUTSIDE RECORDS SUMMARY | 2025-01-31 07:09 | XMS_ITS | Encounter Summary ---
Author Organization [facility] Address [address] [place] [address] Care Team Providers Care Petroleum Refinery Operator Name Role Phone Tee Espinosa MD Primary Care Provider [phone] Encounter Details Date Type Department Care Team (Late st Contact Info) Description 11/13/2003 Outpatient Historical [facility] [address] 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
--- OUTSIDE RECORDS SUMMARY | 2025-01-31 07:09 | XMS_ITS | Encounter Summary ---
Author Organization [facility] Address [address] [place] [address] Care Team Providers Care Junior Architect Name Role Phone Tee Espinosa MD Primary Care Provider [phone] Encounter Details Date Type Department Care Team (Late st Contact Info) Description 12/25/2003 Outpatient Historical [facility] [address] [facility] [address] [place] [phone] Tee Yates MD [address] 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
--- OUTSIDE RECORDS SUMMARY | 2025-01-31 07:09 | XMS_ITS | Encounter Summary ---
Author Organization [facility] Address [address] [place] [address] Care Team Providers Care Resource Director Name Role Phone Tee Espinosa MD Primary Care Provider [phone] Encounter Details Date Type Department Care Team (Late st Contact Info) Description 11/14/2003 Outpatient Historical [facility] [address] [facility] [address] [place] [phone] Tee Yates MD [address] 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
--- OUTSIDE RECORDS SUMMARY | 2025-01-31 07:10 | XMS_ITS | Encounter Summary ---
Author Organization [facility] Address [address] [place] [address] Care Team Providers Care Jigman Name Role Phone Tee Espinosa MD Primary Care Provider [phone] Encounter Details Date Type Department Care Team (Late st Contact Info) Description 04/20/2006 Outpatient Historical [facility] [address] [facility] [address] [place] [phone] Tee Yates MD [address] 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
--- OUTSIDE RECORDS SUMMARY | 2025-01-31 07:10 | XMS_ITS | Clinical Summary ---
Author Organization [facility] Address [address] [place] [address] Phone Care Team Providers Care Roving Winder Name Role Phone Pedro Bird MD Primary [...] Comments Blood Pressure 138/70 06/08/2021 8:50 AM KEYMODULE ASSEMBLY SUPERVISOR Pulse 72 06/08/2021 8:50 AM KEYMODULE ASSEMBLY SUPERVISOR Temperature 35.7 C (96.3 F) 06/08/2021 8:50 AM KEYMODULE ASSEMBLY SUPERVISOR Respiratory Rate - - Oxygen Saturation - - Inhaled Oxygen Concentration - - Weight 83.9 kg (185 lb) 06/08/2021 8:50 AM KEYMODULE ASSEMBLY SUPERVISOR Height 167.6 cm (5' 6) 06/08/2021 8:50 AM KEYMODULE ASSEMBLY SUPERVISOR Body Mass Index 29.86 06/08/2021 8:50 AM KEYMODULE ASSEMBLY SUPERVISOR Plan of Treatment Health Maintenance Due Date Last Done Comments Pneumococcal PPSV23/PCV13 65 + Years / Low and Medium Risk (1 of 2 - PCV) 1996 Influenza Vaccine (#1) 2025 Insurance [employer] MEDICARE Care Teams Roving Winder Relationship Specialty Start Date End Date Pedro Bird MD [address] [place] [address] PCP - General Internal Medicine 01/16/19
--- OUTSIDE RECORDS SUMMARY | 2025-01-31 07:10 | XMS_ITS | Encounter Summary ---
Author Organization [facility] Address [address], [place] [address] Phone Care Team Providers Care Hydrogeology Professor Name Role Phone Pedro Bird MD Primary Care Provider Reason for Visit * Reason Comments Med Refill Encounter Details Date Type Department Care Team (Late st Contact Info) Description 12/22/2021 Refill [facility] Nephrology and Hypertension [address] [address], [address] [place] [address] Levi Garcia MD [address] [facility], [address] [place] [address] Social History Tobacco Use Types Packs/Day Years [...] on filedocumented in this encounter Care Teams Hydrogeology Professor Relationship Specialty Start Date End Date Pedro Bird MD [address] [place] [address] PCP - General Internal Medicine 01/16/19 documented as of this encounter
--- OUTSIDE RECORDS SUMMARY | 2025-01-31 07:10 | XMS_ITS | Clinical Summary ---
Author Organization [facility] [address] Address [address] [place] [address] Care Team Providers Care Player Development Manager Name Role Phone Pedro Bird MD Primary Care Provider Adriane Agee MD Unavailable [phone] Allergies No known active allergies Medications lisinopriL [...] capsule by mouth daily after lunch Active cuftsbinwjpd-Cr-pd on-minerals 18-0.4 mg tabletIndications: Vitamin Deficiency Prevention Take 1 tablet by mouth every morning Active vit C,X-Fa-mhsgo-lutei n-zeaxan (PreserVision AREDS-2) 250-90-40-1 mg capsuleIndications :eye health Take 1 capsule by mouth 3 (three) times a day Active fexofenadine (HUMPHREY) 180 mg tabletIndications: Seasonal Allergic Rhinitis Take 180 mg by mouth as needed Active ascorbic vxkd-gzzbuint-grd 1,000 mg powder effervescent in packetIndications: supplement [...] dee on the arms and face from 4754-2355 TONSILLECTOMY/ADENOIDECTO MY CATARACT EXTRACTION, BILATERAL INSERT / [...] on file Legal Sex Male 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 Gender Identity Not on file Sexual Orientation [...] 11:17 AM CDT Height 172.7 cm (5' 8) 02/11/2023 11:17 AM CDT Body Mass Index [...] 10/22/2020, 05/13/2020 Medical Devices Implanted Type Area Play Therapist Device Identifier Shelf Expiration Date Model / Serial / Lot Biotronick-Pace maker-01/22/2020 Implanted:01/21 (Quantity not on file) Left: Chest Intermedia Vascu-Guard 8x.8cm Peripheral Patch Vascular Bovine Pericardium [id number] - [id number] Implanted:Qty: 1 on 11/25/2021 by Adriane Agee MD at [facility] Right: Carotid Adams Overtone Jayla 07/14/2026 [id number] / / [id number] Insurance MDCR HMO REF [facility] MEDIC[facility] Address: [facility] [address] [place] [id number] MEDICARE ADVANTAGE [facility] MEDICARE Address: [address] [address] [place] [address] [facility] MDCR HMO REF [facility] MEDIC[facility] Address: [address] [address] [place] [address] Advance Directives For more information, please contact: [phone] * Full Code (Latest Code Status on File) Date Activated Date Inactivated Comments 11/25/2021 9:21 PM 11/27/2021 6:37 PM Care Teams Player Development Manager Relationship Specialty Start Date End Date Pedro Bird MD PCP - General Family Practice 01/21/20 Adriane Agee MD Surgeon Vascular Surgery 11/13/21
--- OUTSIDE RECORDS SUMMARY | 2025-01-31 07:10 | XMS_ITS | Encounter Summary ---
Author Organization [facility] Address [address] [place] [address] Care Team Providers Care Cash Applications Specialist Name Role Phone Tee Espinosa MD Primary Care Provider [phone] Encounter Details Date Type Department Care Team (Late st Contact Info) Description 12/04/2003 Outpatient Historical [facility] [address] [facility] [address] [place] [phone] Tee Yates MD [address] 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
--- OUTSIDE RECORDS SUMMARY | 2025-01-31 07:11 | XMS_ITS | Encounter Summary ---
Author Organization [facility] Address [address] [place] [address] Care Team Providers Care Fire Management Specialist Name Role Phone Tee Espinosa MD Primary Care Provider [phone] Encounter Details Date Type Department Care Team (Late st Contact Info) Description 03/09/2006 Outpatient Historical [facility] [address] [facility] [address] [place] [phone] Tee Yates MD [address] 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
--- OUTSIDE RECORDS SUMMARY | 2025-01-31 07:11 | XMS_ITS | Clinical Summary ---
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
--- OUTSIDE RECORDS SUMMARY | 2025-01-31 07:11 | XMS_ITS | Encounter Summary ---
Author Organization [facility] Address [address] [place] [address] Care Team Providers Care Tree Killer Name Role Phone Tee Espinosa MD Primary Care Provider [phone] Encounter Details Date Type Department Care Team (Late st Contact Info) Description 01/12/2006 Outpatient Historical [facility] [address] [facility] [address] [place] [phone] Tee Yates MD [address] 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
--- OUTSIDE RECORDS SUMMARY | 2025-01-31 07:11 | XMS_ITS | Encounter Summary ---
Author Organization [facility] Address [address] [place] [address] Care Team Providers Care Waterfront Director Name Role Phone Tee Espinosa MD Primary Care Provider [phone] Encounter Details Date Type Department Care Team (Late st Contact Info) Description 11/23/2005 Outpatient Historical [facility] [address] [facility] [address] [place] [phone] Tee Yates MD [address] 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
--- OUTSIDE RECORDS SUMMARY | 2025-01-31 07:11 | XMS_ITS | Encounter Summary ---
Author Organization [facility] Address [address] [place] [address] Care Team Providers Care Permit Agent Name Role Phone Tee Espinosa MD Primary Care Provider [phone] Encounter Details Date Type Department Care Team (Late st Contact Info) Description 11/26/2005 Outpatient Historical [facility] [address] [facility] [address] [place] [phone] Tee Yates MD [address] 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
--- OUTSIDE RECORDS SUMMARY | 2025-01-31 07:11 | XMS_ITS | Encounter Summary ---
Author Organization [employer] Address 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
--- OUTSIDE RECORDS SUMMARY | 2025-01-31 07:11 | XMS_ITS | Referral Summary ---
Author Organization [facility] [address] Address [address] [place] [address] Care Team Providers Care Gimp Buttonhole Machine Operator Name Role Phone Pedro Bird MD Primary Care Provider Adriane Agee MD Unavailable [phone] Allergies No known active allergies Medications lisinopriL [...] capsule by mouth daily after lunch Active eoxsfhwzniby-Cn-kd on-minerals 18-0.4 mg tabletIndications: Vitamin Deficiency Prevention Take 1 tablet by mouth every morning Active vit C,U-He-kcqbe-lutei n-zeaxan (PreserVision AREDS-2) 250-90-40-1 mg capsuleIndications :eye health Take 1 capsule by mouth 3 (three) times a day Active fexofenadine (HUMPHREY) 180 mg tabletIndications: Seasonal Allergic Rhinitis Take 180 mg by mouth as needed Active ascorbic axzt-gddthxoj-sgs 1,000 mg powder effervescent in packetIndications: supplement [...] on file 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 Gender Identity Not on file Sexual [...] on file Medical Devices Implanted Type Area Pizza Baker Device Identifier Shelf Expiration Date Model / Serial / Lot Biotronick-Pace maker-01/22/2020 Implanted:01/21 (Quantity not on file) Left: Chest NX Pharmagen Jayla Vascu-Guard 8x.8cm Peripheral Patch Vascular Bovine Pericardium Vg-[id number] - [id number] Implanted:Qty: 1 on 11/25/2021 by Adriane Agee MD at [facility] Right: Carotid [facility] Jayla 07/14/2026 VG-[id number] / / [id number] Insurance [employer] MEDICARE ADVANTAGE Advance Directives For more information, please contact: [phone] * Full Code (Latest Code Status on File) Date Activated Date Inactivated Comments 11/25/2021 9:21 PM 11/27/2021 6:37 PM Care Teams Gimp Buttonhole Machine Operator Relationship Specialty Start Date End Date Pedro Bird MD PCP - General Family Practice 01/21/20 Adriane Agee MD Surgeon Vascular Surgery 11/13/21
--- OUTSIDE RECORDS SUMMARY | 2025-01-31 07:11 | XMS_ITS | Encounter Summary ---
Author Organization [facility] Address [address] [place] [address] Care Team Providers Care Bail Bond Agent Name Role Phone Tee Espinosa MD Primary Care Provider [phone] Encounter Details Date Type Department Care Team (Late st Contact Info) Description 12/15/2005 Outpatient Historical [facility] Burn [address] [facility] [address] [place] [phone] Tee Yates MD [address] 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
--- OUTSIDE RECORDS SUMMARY | 2025-01-31 07:11 | XMS_ITS | Encounter Summary ---
Author Organization [employer] Address [address] [place] [address] Care Team Providers Care Document Examiner Name Role Phone Tee Espinosa MD Primary Care Provider [phone] Encounter Details Date Type Department Care Team (Late st Contact Info) Description 10/05/2005 Outpatient Historical [facility] [address] 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
--- OUTSIDE RECORDS SUMMARY | 2025-01-31 07:12 | XMS_ITS | Encounter Summary ---
Author Organization [facility] Address [address] [place] [address] Care Team Providers Care Abrasive Grader Helper Name Role Phone Tee Espinosa MD Primary Care Provider [phone] Encounter Details Date Type Department Care Team (Late st Contact Info) Description 12/09/2004 Outpatient Historical [facility] Burn [address] [facility] [address] [place] [phone] Tee Yates MD [address] 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
--- OUTSIDE RECORDS SUMMARY | 2025-01-31 07:12 | XMS_ITS | Encounter Summary ---
Author Organization [employer] Address [address] [place] [address] Care Team Providers Care Remarketing Rep Name Role Phone Tee Espinosa MD Primary Care Provider [phone] Encounter Details Date Type Department Care Team (Late st Contact Info) Description 10/21/2004 Outpatient Historical [facility] (Adt Cardiology-[facility]) [address] 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
--- OUTSIDE RECORDS SUMMARY | 2025-01-31 07:12 | XMS_ITS | Encounter Summary ---
Author Organization [facility] Address [address] [place] [address] Care Team Providers Care Senior Engineering Tech Name Role Phone Tee Espinosa MD Primary Care Provider [phone] Encounter Details Date Type Department Care Team (Late st Contact Info) Description 04/21/2005 Outpatient Historical [facility] [address] [facility] [address] [place] [phone] Tee Yates MD [address] 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
--- OUTSIDE RECORDS SUMMARY | 2025-01-31 07:12 | XMS_ITS | Encounter Summary ---
Author Organization [facility] Address [address] [place] [address] Care Team Providers Care Rn Infusion Name Role Phone Tee Espinosa MD Primary Care Provider [phone] Encounter Details Date Type Department Care Team (Late st Contact Info) Description 08/18/2005 Outpatient Historical [facility] [address] [facility] [address] [place] [phone] Tee Yates MD [address] 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
--- OUTSIDE RECORDS SUMMARY | 2025-01-31 07:12 | XMS_ITS | Encounter Summary ---
Author Organization [facility] Address [address] [place] [address] Care Team Providers Care Global Commodity Manager Name Role Phone Tee Espinosa MD Primary Care Provider [phone] Encounter Details Date Type Department Care Team (Late st Contact Info) Description 07/06/2005 Outpatient Historical [facility] [address] [facility] [address] [phone] Zachary Segundo MD [address] [facility] [address] [place] [address] Social History Tobacco Use Types Packs/Day Years Used Date Smoking Tobacco: Never Assessed Sex and Gender Information Value Date Recorded Sex Assigned at Not on file 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
--- OUTSIDE RECORDS SUMMARY | 2025-01-31 07:12 | XMS_ITS | Encounter Summary ---
Author Organization [employer] Address 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 Gender Identity Not on file Sexual Orientation Not on file documented as of this encounter Plan of Treatment Not on file documented as of this encounter Procedures Procedure Name Priority Date/Time Associated Diagnosis Comments HEMOGLOBIN AND HEMATOCRIT Routine 06/28/2005 9:43 AM CROSS COUNTRY COACH BASIC METABOLIC PANEL Routine 06/28/2005 9:43 AM CROSS COUNTRY COACH documented in this encounter Results * BASIC METABOLIC PANEL (06/28/2005 9:43 AM CROSS COUNTRY COACH) GLUCOSE 107 65 - 109 mg/dL INTERFACE [...] 30 mmol/L INTERFACE SYSTEM 06/28/2005 9:43 AM CROSS COUNTRY COACH us Tee Yates MD CHEMISTRY ORDERABLES Final Resu lt INTERFACE SYSTEM Refer to clinic/hospital department * HEMOGLOBIN AND HEMATOCRIT (06/28/2005 9:43 AM CROSS COUNTRY COACH) HEMOGLOBIN 15.1 13.6 - 16.5 g/dL INTERFACE SYSTEM HEMATOCRIT 44.5 40.0 - 48.0 % INTERFACE SYSTEM 06/28/2005 9:43 AM CROSS COUNTRY COACH us Tee Yates MD HEMATOLOGY ORDERABLES Final Res ult Performing Organization Address [facility] Co de Phone Number INTERFACE SYSTEM Refer to clinic/hospital department documented in this encounter Visit Diagnoses Diagnosis Scar condition and fibrosis of skin- Primary documented in this encounter Care Teams Advertisement Distributor Relationship Specialty Start Date End Date Tee Espinosa MD [address] [place] [address] PCP - General 04/14/04 documented as of this encounter
--- OUTSIDE RECORDS SUMMARY | 2025-01-31 07:12 | XMS_ITS | Encounter Summary ---
Author Organization [facility] Address [address] [place] [address] Care Team Providers Care Checkroom Chief Name Role Phone Tee Espinosa MD Primary Care Provider [phone] Encounter Details Date Type Department Care Team (Late st Contact Info) Description 01/20/[address] [facility] [address] [facility] [address] [place] [phone] Tee Yates MD [address] 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
--- OUTSIDE RECORDS SUMMARY | 2025-01-31 07:12 | XMS_ITS | Encounter Summary ---
Author Organization [facility] Address [address] [place] [address] Care Team Providers Care Whale Trainer Name Role Phone Tee Espinosa MD Primary Care Provider [phone] Encounter Details Date Type Department Care Team (Late st Contact Info) Description 03/08/2005 Outpatient Historical [facility] [address] [facility] [address] [place] [phone] Tee Yates MD [address] 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
--- OUTSIDE RECORDS SUMMARY | 2025-01-31 07:12 | XMS_ITS | Encounter Summary ---
Author Organization [facility] Address [address] [place] [address] Care Team Providers Care Elevator Operator Name Role Phone Tee Espinosa MD Primary Care Provider Encounter Details Date Type Department Care Team (Late st Contact Info) Description 03/17/2005 Outpatient Historical [facility] [address] [facility] [address] [place] [phone] Tee Yates MD [address] 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
--- OUTSIDE RECORDS SUMMARY | 2025-01-31 07:12 | XMS_ITS | Encounter Summary ---
Author Organization [facility] Address [address] [place] [address] Care Team Providers Care School Office Assistant Name Role Phone Tee Espinosa MD Primary Care Provider [phone] Encounter Details Date Type Department Care Team (Late st Contact Info) Description 07/21/2005 Outpatient Historical [facility] [address] [facility] [address] [place] [phone] Tee Yates MD [address] 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
--- OUTSIDE RECORDS SUMMARY | 2025-01-31 07:12 | XMS_ITS | Encounter Summary ---
Author Organization [facility] Address [address] [place] [address] Care Team Providers Care Print Operator Name Role Phone Tee Espinosa MD Primary Care Provider [phone] Encounter Details Date Type Department Care Team (Late st Contact Info) Description 11/11/2004 Outpatient Historical [facility] [address] [facility] [address] [place] [phone] Tee Yates MD [address] 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
--- OUTSIDE RECORDS SUMMARY | 2025-01-31 07:12 | XMS_ITS | Encounter Summary ---
Author Organization [facility] Address [address] [place] [address] Care Team Providers Care Heel Sprayer First Name Role Phone Tee Espinosa MD Primary Care Provider [phone] Encounter Details Date Type Department Care Team (Late st Contact Info) Description 07/06/2005 Outpatient Historical [facility] [address] [facility] [address] [place] [phone] Tee Yates MD [address] 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
--- OUTSIDE RECORDS SUMMARY | 2025-01-31 07:12 | XMS_ITS | Encounter Summary ---
Author Organization [facility] Address [address] [place] [address] Care Team Providers Care Reference And Instruction Librarian Name Role Phone Tee Espinosa MD Primary Care Provider [phone] Encounter Details Date Type Department Care Team (Late st Contact Info) Description 03/02/2005 Outpatient Historical [facility] [address] [facility] [address] [place] [phone] Tee Yates MD [address] 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
--- OUTSIDE RECORDS SUMMARY | 2025-01-31 07:12 | XMS_ITS | Encounter Summary ---
Author Organization [employer] Address 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
--- OUTSIDE RECORDS SUMMARY | 2025-01-31 07:13 | XMS_ITS | Encounter Summary ---
Author Organization [facility] Address [address] [place] [address] Care Team Providers Care Collator Operator Name Role Phone Tee Espinosa MD Primary Care Provider [phone] Encounter Details Date Type Department Care Team (Late st Contact Info) Description 10/30/2004 Outpatient Historical [facility] [address] [facility] [address] [place] [phone] Tee Yates MD [address] 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
--- OUTSIDE RECORDS SUMMARY | 2025-01-31 07:13 | XMS_ITS | Encounter Summary ---
Author Organization [employer] Address 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 Gender Identity Not on file Sexual Orientation Not on file documented as of this encounter Plan of Treatment Not on file documented as of this encounter Procedures Procedure Name Priority Date/Time Associated Diagnosis Comments HEMOGLOBIN AND HEMATOCRIT Routine 08/04/2004 11:02 AM TRIPLE AIR VALVE TESTER documented in this encounter Results * HEMOGLOBIN AND HEMATOCRIT (08/04/2004 11:02 AM TRIPLE AIR VALVE TESTER) HEMOGLOBIN 15.9 13.6 - 16.5 g/dL INTERFACE SYSTEM HEMATOCRIT 45.7 40.0 - 48.0 % INTERFACE SYSTEM 08/04/2004 11:0 2 AM TRIPLE AIR VALVE TESTER us Tee Yates MD HEMATOLOGY ORDERABLES Final Res ult INTERFACE SYSTEM Refer to clinic/hospital department documented in this encounter Visit Diagnoses Diagnosis Microstomia- Primary documented in this encounter Care Teams Intelligence Operations Relationship Specialty Start Date End Date Tee Espinosa MD [address] [place] [address] PCP - General 04/14/04 documented as of this encounter
--- OUTSIDE RECORDS SUMMARY | 2025-01-31 07:13 | XMS_ITS | Encounter Summary ---
Author Organization [facility] Address [address] [place] [address] Care Team Providers Care Rib Builder Name Role Phone Tee Espinosa MD Primary Care Provider [phone] Encounter Details Date Type Department Care Team (Late st Contact Info) Description 09/30/[address] [facility] [address] [facility] [address] [place] [phone] Tee Yates MD [address] 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
--- OUTSIDE RECORDS SUMMARY | 2025-01-31 07:13 | XMS_ITS | Encounter Summary ---
Author Organization [employer] Address 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
--- OUTSIDE RECORDS SUMMARY | 2025-01-31 07:13 | XMS_ITS | Encounter Summary ---
Author Organization [facility] Address [address] [place] [address] Care Team Providers Care Chart Changer Name Role Phone Tee Espinosa MD Primary Care Provider [phone] Encounter Details Date Type Department Care Team (Late st Contact Info) Description 08/26/2004 Outpatient Historical [facility] [address] [facility] [address] [phone] Zachary Segundo MD [address] [facility] [address] [place] [address] Social History Tobacco Use Types Packs/Day Years Used Date Smoking Tobacco: Never Assessed Sex and Gender Information Value Date Recorded Sex Assigned at Not on file 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
--- OUTSIDE RECORDS SUMMARY | 2025-01-31 07:13 | XMS_ITS | Encounter Summary ---
Author Organization [facility] Address [address] [place] [address] Care Team Providers Care Deck Engine Operator Name Role Phone Tee Espinosa MD Primary Care Provider Encounter Details Date Type Department Care Team (Late st Contact Info) Description 05/06/2004 Outpatient Historical [facility] [address] [facility] [address] [place] [phone] Tee Yates MD [address] 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
--- OUTSIDE RECORDS SUMMARY | 2025-01-31 07:13 | XMS_ITS | Encounter Summary ---
Author Organization [facility] Address [address] [place] [address] Care Team Providers Care Assistant Plant Manager Name Role Phone Tee Espinosa MD Primary Care Provider [phone] Encounter Details Date Type Department Care Team (Late st Contact Info) Description 06/17/2004 Outpatient Historical [facility] [address] [facility] [address] [place] [phone] Tee Yates MD [address] 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
--- OUTSIDE RECORDS SUMMARY | 2025-01-31 07:13 | XMS_ITS | Encounter Summary ---
Author Organization [facility] Address [address] [place] [address] Care Team Providers Care Salvage Diver Name Role Phone Tee Espinosa MD Primary Care Provider [phone] Encounter Details Date Type Department Care Team (Late st Contact Info) Description 08/04/2004 Outpatient Historical [facility] [address] [facility] [address] [place] [phone] Tee Yates MD [address] 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
--- OUTSIDE RECORDS SUMMARY | 2025-01-31 07:13 | XMS_ITS | Encounter Summary ---
Author Organization [facility] Address [address] [place] [address] Care Team Providers Care Solar Fabrication Technician Name Role Phone Tee Espinosa MD Primary Care Provider [phone] Encounter Details Date Type Department Care Team (Late st Contact Info) Description 10/27/[address] [facility] [address] [facility] [address] [place] [phone] Tee Yates MD [address] 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
--- OUTSIDE RECORDS SUMMARY | 2025-01-31 07:13 | XMS_ITS | Encounter Summary ---
Author Organization [facility] Address [address] [place] [address] Care Team Providers Care Health Care Recruiter Name Role Phone Tee Espinosa MD Primary Care Provider [phone] Encounter Details Date Type Department Care Team (Late st Contact Info) Description 09/16/2004 Outpatient Historical [facility] ([facility]3] [address] [facility] [address] [place] [phone] Tee Yates MD [address] 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
--- OUTSIDE RECORDS SUMMARY | 2025-01-31 07:13 | XMS_ITS | Encounter Summary ---
Author Organization [facility] Address [address] [place] [address] Care Team Providers Care Mining Professionals Name Role Phone Tee Espinosa MD Primary Care Provider [phone] Encounter Details Date Type Department Care Team (Late st Contact Info) Description 08/12/2004 Outpatient Historical [facility] [address] [phone] Zachary Segundo MD [address] [facility] [address] [place] [address] Social History Tobacco Use Types Packs/Day Years Used Date Smoking Tobacco: Never Assessed Sex and Gender Information Value Date Recorded Sex Assigned at Not on file 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
--- OUTSIDE RECORDS SUMMARY | 2025-01-31 07:13 | XMS_ITS | Encounter Summary ---
Author Organization [facility] Address [address] [place] [address] Care Team Providers Care Insurance Manager Name Role Phone Tee Espinosa MD Primary Care Provider [phone] Encounter Details Date Type Department Care Team (Late st Contact Info) Description 08/07/2004 Outpatient Historical [facility] [address] [phone] Zachary Segundo MD [address] [facility] [address] [place] [address] Social History Tobacco Use Types Packs/Day Years Used Date Smoking Tobacco: Never Assessed Sex and Gender Information Value Date Recorded Sex Assigned at Not on file 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
--- OUTSIDE RECORDS SUMMARY | 2025-01-31 07:14 | XMS_ITS | Encounter Summary ---
Author Organization [facility] Address [address] [place] [address] Care Team Providers Care Spinning Frame Fixer Name Role Phone Tee Espinosa MD Primary Care Provider [phone] Encounter Details Date Type Department Care Team (Late st Contact Info) Description 04/21/2004 Outpatient Historical [facility] [address] [facility] [address] [place] [phone] Tee Yates MD [address] 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
--- OUTSIDE RECORDS SUMMARY | 2025-01-31 07:14 | XMS_ITS | Encounter Summary ---
Author Organization [facility] Address [address] [place] [address] Care Team Providers Care Skip Miner Blasting Name Role Phone Tee Espinosa MD Primary Care Provider [phone] Encounter Details Date Type Department Care Team (Late st Contact Info) Description 04/17/2004 Outpatient Historical [facility] [address] [facility] [address] [place] [phone] Tee Yates MD [address] 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
--- OUTSIDE RECORDS SUMMARY | 2025-01-31 07:14 | XMS_ITS | Encounter Summary ---
Author Organization [facility] Address [address] [place] [address] Care Team Providers Care Debt Collector Name Role Phone Tee Espinosa MD Primary Care Provider [phone] Encounter Details Date Type Department Care Team (Late st Contact Info) Description 08/04/2004 Outpatient Historical [facility] [address] [facility] [address] [place] [phone] Tee Yates MD [address] 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
--- NOTE | 2025-01-31 07:41 | ECHO_ITS ---
Patient Info Name: Jerry Chappell Age: 79 years : 1945 Gender: Male Ht: 69 in Wt: 195 lbs BSA: 2.10 m2 HR: 60 bpm BP: 96 / 60 mmHg Technical Quality: Good Exam Date: 01/31/2025 8:15 AM Patient Status: O Admit Date: 01/31/2025 Exam Type: CA echo doppler color flow Complete two-dimensional, color flow and Doppler transthoracic echocardiogram is performed. Mergers [employer] Acquis[employer] Associate: Fabienne Melara Attending Provider: Naman Dee DO Summary 1. Complete two-dimensional, color flow and Doppler transthoracic echocardiogram is performed. 2. Left ventricular chamber dimension is normal. 3. Left ventricular systolic function is normal, estimated at 60-65. 4. There is moderate concentric increased left ventricular wall thickness. 5. The left ventricular diastolic function is grade I diastolic dysfunction. 6. E/e' 25 is elevated. 7. Linear artifact in right ventricle suggestive of catheter(s), pacemaker lead(s), or ICD lead(s). 8. Linear artifact in the right atrium suggestive of catheter(s), pacemaker lead(s), or ICD lead(s). 9. There is mild aortic valve sclerosis. 10. There is trace aortic valve regurgitation. 11. There is mild mitral valve regurgitation. 12. 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 Left Ventricle E/e' 25 is elevated. Left ventricular chamber dimension is normal. Left ventricular systolic function is normal, estimated at 60-65. There is moderate concentric increased left ventricular wall thickness. The left ventricular diastolic function is grade I diastolic dysfunction. Right Ventricle Right ventricular chamber dimension is normal. Right ventricular systolic function is normal and with normal TAPSE 1.8 cm. Linear artifact in right ventricle suggestive of catheter(s), pacemaker lead(s), or ICD lead(s). Left Atria Left atrial chamber dimension is normal. Right Atria Right atrial chamber dimension is normal. Linear artifact in the right atrium suggestive of catheter(s), pacemaker lead(s), or ICD lead(s). Aortic Valve The aortic valve is trileaflet. There is mild aortic valve sclerosis. There is no aortic valve stenosis. There is trace aortic valve regurgitation. Pulmonic Valve There is no pulmonic regurgitation. Mitral Valve There is no mitral valve stenosis. There is mild mitral valve regurgitation. Tricuspid Valve There is no tricuspid valve regurgitation. Pericardium/Pleural There is no pericardial effusion. Inferior Vena Cava Normal inferior vena cava with >50% collapse upon inspiration consistent with normal right atrial pressure, 5 mmHg. Aorta The aortic root size at the sinus of Valsalva is normal. 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 Left Ventricular Outflow Tract Name Value Normal LVOT 2D LVOT Diameter 2.0 cm LVOT Doppler LVOT Peak Velocity 156 cm/s LVOT Peak Gradient 10 mmHg LVOT Mean Gradient 6 mmHg LVOT VTI 42 cm LVOT Stroke Volume 128 ml LVOT CO 7.7 l/min LVOT CI 3.7 l/min/m2 Pulmonic Valve Name Value Normal RVOT Doppler RVOT Peak Velocity 120 cm/s RVOT Peak Gradient 6 mmHg PV Doppler PV Peak Velocity 132 cm/s PV Peak Gradient 7 mmHg Mitral Valve Name Value Normal MV Diastolic Function MV E Peak Velocity 139 cm/s MV A Peak Velocity 174 cm/s MV E/A 0.8 MV Decel Time (PW) 238 ms MV Annular TDI MV E/e' (Septal) 24.4 MV E/e' (Lateral) 25.7 MV E/e' (Average) 25.0 Tricuspid Valve Name Value Normal Estimated PAP/RSVP RA Pressure 5 mmHg <=5 Aortic Valve Name Value Normal AV Doppler AV Peak Velocity 167 cm/s AV Peak Gradient 11 mmHg AV Area (Cont Eq Abner) 2.8 cm2 AV DI (Abner) 0.94 AV Regurgitation 2D LVOT Area 3.0 cm2 Ventricles Name Value Normal LV Dimensions 2D/MM IVS Diastolic Thickness (2D) 1.6 cm 0.6-1.0 LVID Diastole (2D) 2.9 cm 4.2-5.8 LVIW Diastolic Thickness (2D) 1.3 cm 0.6-1.0 LVID Systole (2D) 2.0 cm 2.5-4.0 LVOT Diameter 2.0 cm LV Mass (2D Cubed) 142.88 g 88.00-224.00 LV Mass Index (2D Cubed) 68 g/m2 49-115 Relative Wall Thickness (2D) 0.89 <=0.42 LV Fractional Shortening/Ejection Fraction 2D/MM LV Fractional Shortening (2D) 30 % 25-43 LV EF (2D Teichholz) 59 % LV Diastolic Volume (4C MOD) 131 ml LV EF (4C MOD) 68 % LV Diastolic Volume (2C MOD) 120 ml LV EF (2C MOD) 59 % LV Diastolic Volume (BP MOD) 130 ml 62-150 LV Diastolic Volume Index (BP MOD) 62 ml/m2 34-74 LV Systolic Volume (BP MOD) 47 ml 21-61 LV Systolic Volume Index (BP MOD) 22 ml/m2 11-31 LV EF (BP MOD) 64 % 52-72 LV Diastolic Length (4C) 8.8 cm LV Systolic Length (4C) 7.2 cm LV Stroke Volume (4C MOD) 89 ml Atria Name Value Normal LA Dimensions LA Volume (4C A-L) 52 ml LA Volume (BP A-L) 59 ml RA Dimensions RA Systolic Major Marshall Length (4C) 4.5 cm 2.1-2.7 RA Area (4C) 12.2 cm2 <=18.0 Report Signatures
== END 2025-01-31 07:06 | disposition home or self-care (01) ==
PROVIDERS: PCP Family Medicine; Visit Provider Internal Medicine Cardiovascular Disease
DX: R01.1 Cardiac murmur, unspecified (principal); I34.0 Nonrheumatic mitral (valve) insufficiency
CPT/HCPCS: 93306

== ENCOUNTER 2025-02-28 10:56 | Emergency (ER) | payer MEDICARE, SELFPAY ==
[2025-02-28 11:15] VITALS: BP 136/67; PULSE 64; RESP 18; TEMP 36.4; O2SAT 98
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
== END 2025-02-28 11:30 | disposition home or self-care (01) ==
PROVIDERS: PCP Family Medicine
DX: J32.9 Chronic sinusitis, unspecified (principal); I12.9 Hypertensive chronic kidney disease with stage 1 through stage 4 chronic kidney disease, or unspecified chronic kidney disease; N18.30 Chronic kidney disease, stage 3 unspecified; E78.5 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, unspecified; I65.22 Occlusion and stenosis of left carotid artery; E55.9 Vitamin D deficiency, unspecified; F41.9 Anxiety disorder, unspecified; Z86.73 Personal history of transient ischemic attack (TIA), and cerebral infarction without residual deficits; Z79.82 Long term (current) use of aspirin
CPT/HCPCS: 99213; G0463

== ENCOUNTER 2025-05-29 09:19 | Outpatient (CLI) | payer MEDICARE, SELFPAY ==
[2025-05-29 13:09] LABS: Hematocrit 45.2 % (42.0-52.0); Hemoglobin 14.8 g/dL (14.0-18.0); Immature Granulocyte Percent A 0.4 % (0-0.5); Lymphocytes Absolute Auto 1.67 K/mm3 (0.9-3.2); Mean Corpuscular HGB Conc 32.7 g/dl (32-36); Mean Corpuscular Hemoglobin 30.2 pg (26-34); Mean Corpuscular Volume 92.2 fl (80-100); Nucleated Red Blood Cells Absolute Auto 0.000 K/mm3 (0.0-0.012); Nucleated Red Blood Cells Perc 0.0 % (0.0-0.2); Platelet Count Result 226 k/mm3 (150-375); Red Blood Count 4.90 M/mm3 (4.6-6.20); White Blood Count 9.0 K/mm3 (4.5-10.0)
[2025-05-29 15:17] LABS: Alanine Aminotransferase 32 U/L (6-50); Albumin Level 4.1 g/dL (3.5-5.1); Alkaline Phosphatase 108 U/L (38-126); Anion Gap 7 mmol/L (4-12); Aspartate Amino Transferase 44 U/L (17-59); Bilirubin,Total 0.7 mg/dL (0.2-1.3); Blood Urea Nitrogen 20 mg/dL (9-20); Calcium 8.8 mg/dL (8.4-10.2); Carbon Dioxide 27 mmol/L (22-30); Chloride 105 mmol/L (98-107); Cholesterol 106 mg/dL (0-200); Estimated Glomerular Filt Rate 48; Glucose 98 mg/dL (65-110); HDL Direct 37 mg/dL; Potassium 4.3 mmol/L (3.4-5.0); Sodium 139 mmol/L (137-145); Total Protein 6.9 g/dL (6.3-8.2); Triglycerides 68 mg/dL (<150)
== END 2025-05-29 09:20 | disposition home or self-care (01) ==
LOC: ANHGOSHLAB 09:19
PROVIDERS: PCP Nurse Practitioner Family; Visit Provider Nurse Practitioner Family
DX: E78.5 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, unspecified (principal); I10 Essential (primary) hypertension
CPT/HCPCS: 36415; 80053; 80061; 85025

== ENCOUNTER 2025-06-03 08:28 | Outpatient (CLI) | payer MEDICARE, SELFPAY ==
--- OUTSIDE RECORDS SUMMARY | 2017-11-21 06:40 | XMS_ITS | Continuity of Care Document ---
Author Organization [facility] Address [id number] [place] [address] [address] [place] [address] Phone Care Team Providers Care Commodity Buyer Name Role Phone Dakota TOLEDO, Jack Unavailable Unavaila ble Procedures Procedure Date AFTER CATARACT LASER SURGERY CATARACT SURG W/IOL, 1 STAGE CATARACT SURG W/IOL, 1 STAGE EYE EXAM, NEW PATIENT OPHTHALMIC BIOMETRY SPECIAL EYE EXAM, INITIAL Advance Directives Directive Yes / No Effective Date File Name No Information Encounters Encounter Description Practice Location Reason(s) For Visit Diagnoses Date Provider Providers Copied on Encounter [facility], [address] [place], [place] [address] [address], [place], [place], [id number], [place] tel:[phone] [facility] No Information 8 Dakota Santiago. [address], [address], [place], [place], [id number], [place]. tel:[phone] Referring Provider: Jack gonzalez, [address], [place], [address] . tel:[phone] [facility], [address] [place], [place] [address] [address], [place], [place], [id number], [place] tel:[phone] [facility] No Information 6 Toña Sandhu. [address], [address], [place], [place], [id number], [place]. tel:[phone] Referring Provider: Edson Miranda, [address], [place], [address] . tel:[phone] [facility], [address] [place] [address], [id number], tel:[phone] [facility] No Information 6 Toña Sandhu. [address], [address], [place], [place], [address], . tel:[phone] Referring Provider: Edson Ding MD P, [address], [place], [address] . tel:[phone] [facility], [address] [place] [address], [place], [place], [id number], tel:[phone] [facility] No Information 6 Toña Sandhu. [address], [address], [place], [place], [id number], . tel:[phone] Referring Provider: Edson Ding MD P, [address], [place], [address] . tel:[phone] Family History Family Member Type Diagnosis Age At Onset No Information Payers Payer name Insurance type Covered libertarian ID Authoriza tion(s) Medicare Complete Advantage [facility] [id number] Social History Type Description Quantity Date Captured Comments Sex Male Smoking Status No Information Chief Complaint And Reason For Visit No Information Reason For Referral Reason For Referral No Information History Of Present Illness Encounter Date Complaint History Of Prese nt Illness No Information Functional Status Date Functional Assessmen t No Information Instructions Date Instruction Additional Infor mation No Information Assessments Type Assessment Date No Information Patient Care Teams Name Effective Dates (start - stop) Status Members No Information
--- OUTSIDE RECORDS SUMMARY | 2025-06-03 08:39 | XMS_ITS | Encounter Summary ---
Author Organization [facility] Address [address] [place] [address] Care Team Providers Care Machine Icer Name Role Phone Tee Espinosa MD Primary Care Provider [phone] Encounter Details Date Type Department Care Team (Late st Contact Info) Description 12/11/2003 Outpatient Historical [facility] [address] [facility] [address] [place] [phone] Tee Yates MD [address] 

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
--- OUTSIDE RECORDS SUMMARY | 2025-06-03 08:39 | XMS_ITS | Encounter Summary ---
Author Organization [facility] Address [address] [place] [address] Care Team Providers Care Distribution Manager Name Role Phone Tee Espinosa MD Primary Care Provider [phone] Encounter Details Date Type Department Care Team (Late st Contact Info) Description 02/12/2004 Outpatient Historical [facility] [address] [facility] [address] [place] [phone] Tee Yates MD [address] 

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
--- OUTSIDE RECORDS SUMMARY | 2025-06-03 08:39 | XMS_ITS | Encounter Summary ---
Author Organization [facility] Address [address] [place] [address] Care Team Providers Care Bankruptcy Paralegal Name Role Phone Tee Espinosa MD Primary Care Provider [phone] Encounter Details Date Type Department Care Team (Late st Contact Info) Description 03/25/2004 Outpatient Historical [facility] [address] [facility] [address] [place] [phone] Tee Yates MD [address] 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
--- OUTSIDE RECORDS SUMMARY | 2025-06-03 08:39 | XMS_ITS | Encounter Summary ---
Author Organization [facility] Address [address] [place] [address] Care Team Providers Care Associate Material Handler Name Role Phone Tee Espinosa MD Primary Care Provider [phone] Encounter Details Date Type Department Care Team (Late st Contact Info) Description 01/15/2004 Outpatient Historical [facility] [address] [facility] [address] [place] [phone] Tee Yates MD [address] 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
--- OUTSIDE RECORDS SUMMARY | 2025-06-03 08:39 | XMS_ITS | Encounter Summary ---
Author Organization [employer] Address 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
--- OUTSIDE RECORDS SUMMARY | 2025-06-03 08:39 | XMS_ITS | Encounter Summary ---
Author Organization [facility] Address [address] [place] [address] Care Team Providers Care Motor Scooter Repairer Name Role Phone Tee Espinosa MD Primary Care Provider [phone] Encounter Details Date Type Department Care Team (Late st Contact Info) Description 12/25/[address] [facility] [address] [facility] [address] [place] [phone] Tee Yates MD [address] 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
--- OUTSIDE RECORDS SUMMARY | 2025-06-03 08:39 | XMS_ITS | Encounter Summary ---
Author Organization [facility] Address [address] [place] [address] Care Team Providers Care Utility Bagger Name Role Phone Tee Espinosa MD Primary Care Provider [phone] Encounter Details Date Type Department Care Team (Late st Contact Info) Description 04/14/2004 Outpatient Historical [facility] [address] [facility] [address] [place] [phone] Tee Yates MD [address] 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
--- OUTSIDE RECORDS SUMMARY | 2025-06-03 08:40 | XMS_ITS | Encounter Summary ---
Author Organization [employer] Address 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
--- OUTSIDE RECORDS SUMMARY | 2025-06-03 08:40 | XMS_ITS | Encounter Summary ---
Author Organization [facility] Address [address] [place] [address] Care Team Providers Care Teacher Preschool Name Role Phone Tee Espinosa MD Primary Care Provider [phone] Encounter Details Date Type Department Care Team (Late st Contact Info) Description 04/21/2005 Outpatient Historical [facility] [address] [facility] [address] [place] [phone] Tee Yates MD [address] 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
--- OUTSIDE RECORDS SUMMARY | 2025-06-03 08:40 | XMS_ITS | Encounter Summary ---
Author Organization [employer] Address [address] [place] [address] Care Team Providers Care Acetylene Gas Compressor Name Role Phone Tee Espinosa MD Primary Care Provider [phone] Encounter Details Date Type Department Care Team (Late st Contact Info) Description 10/05/2005 Outpatient Historical [facility] Support Serv. (Adt Cardiology-[facility]) [address] 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
--- OUTSIDE RECORDS SUMMARY | 2025-06-03 08:40 | XMS_ITS | Encounter Summary ---
Author Organization [facility] Address [address] [place] [address] Care Team Providers Care Lead Technician Name Role Phone Tee Espinosa MD Primary Care Provider [phone] Encounter Details Date Type Department Care Team (Late st Contact Info) Description 11/26/2005 Outpatient Historical [facility] [address] [facility] [address] [place] [phone] Tee Yates MD [address] 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
--- OUTSIDE RECORDS SUMMARY | 2025-06-03 08:40 | XMS_ITS | Encounter Summary ---
Author Organization [facility] Address [address] [place] [address] Care Team Providers Care Cardiac Nurse Practitioner Name Role Phone Tee Espinosa MD Primary Care Provider [phone] Encounter Details Date Type Department Care Team (Late st Contact Info) Description 11/23/2005 Outpatient Historical [facility] [address] [facility] [address] [place] [phone] Tee Yates MD [address] 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
--- OUTSIDE RECORDS SUMMARY | 2025-06-03 08:40 | XMS_ITS | Encounter Summary ---
Author Organization [facility] Address [address] [place] [address] Care Team Providers Care Book Reviewer Name Role Phone Tee Espinosa MD Primary Care Provider [phone] Encounter Details Date Type Department Care Team (Late st Contact Info) Description 07/21/[address] [facility] [address] [facility] [address] [place] [phone] Tee Yates MD [address] 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
--- OUTSIDE RECORDS SUMMARY | 2025-06-03 08:40 | XMS_ITS | Encounter Summary ---
Author Organization [employer] Address 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
--- OUTSIDE RECORDS SUMMARY | 2025-06-03 08:40 | XMS_ITS | Clinical Summary ---
Author Organization [facility] [employer] Address [address] [place] [address] Phone Care Team Providers Care Director Of Fundraising Name Role Phone Pedro Bird MD Primary [...] Comments Blood Pressure 138/70 06/08/2021 8:50 AM AERIAL ERECTOR Pulse 72 06/08/2021 8:50 AM AERIAL ERECTOR Temperature 35.7 C (96.3 F) 06/08/2021 8:50 AM AERIAL ERECTOR Respiratory Rate - - Oxygen Saturation - - Inhaled Oxygen Concentration - - Weight 83.9 kg (185 lb) 06/08/2021 8:50 AM AERIAL ERECTOR Height 167.6 cm (5' 6) 06/08/2021 8:50 AM AERIAL ERECTOR Body Mass Index 29.86 06/08/2021 8:50 AM AERIAL ERECTOR Plan of Treatment Health Maintenance Due Date Last Done Comments Pneumococcal PPSV23/PCV13 65 + Years / Low and Medium Risk (1 of 2 - PCV) 1996 Influenza Vaccine (#1) 2025 Insurance [place] [address] Care Teams Director Of Fundraising Relationship Specialty Start Date End Date Pedro Bird MD [address] [place] [address] PCP - General Internal Medicine 01/16/19
--- OUTSIDE RECORDS SUMMARY | 2025-06-03 08:40 | XMS_ITS | Encounter Summary ---
Author Organization [facility] Address [address] [place] [address] Care Team Providers Care Sanitarian Inspector Name Role Phone Tee Espinosa MD Primary Care Provider [phone] Encounter Details Date Type Department Care Team (Late st Contact Info) Description 07/06/2005 Outpatient Historical [facility] [address] [facility] [address] [place] [phone] Tee Yates MD [address] 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
--- OUTSIDE RECORDS SUMMARY | 2025-06-03 08:40 | XMS_ITS | Encounter Summary ---
Author Organization [facility] Address [address] [place] [address] Care Team Providers Care Antenna Specialist Name Role Phone Tee Espinosa MD Primary Care Provider [phone] Encounter Details Date Type Department Care Team (Late st Contact Info) Description 08/18/2005 Outpatient Historical [facility] [address] [facility] [address] [place] [phone] Tee Yates MD [address] 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
--- OUTSIDE RECORDS SUMMARY | 2025-06-03 08:40 | XMS_ITS | Encounter Summary ---
Author Organization [facility] Address [address] [place] [address] Care Team Providers Care Hot Car Charger Name Role Phone Tee Espinosa MD Primary Care Provider [phone] Encounter Details Date Type Department Care Team (Late st Contact Info) Description 03/02/2005 Outpatient Historical [facility] [address] [facility] [address] [place] [phone] Tee Yates MD [address] [facility] [address] [place], [place] [phone] Social History Tobacco Use Types Packs/Day Years Used Date Smoking Tobacco: Never Assessed Sex and Gender Information Value Date Recorded Sex Assigned at Not on file Legal Sex Male 3:24 [address]ING ENGINEER Gender Identity Not on file Sexual Orientation Not on file documented as of this encounter Plan of Treatment Not on file documented as of this encounter Visit Diagnoses Not on filedocumented in this encounter Care Teams Hot Car Charger Relationship Specialty Start Date End Date Tee Espinosa MD [place] [address] PCP - General 04/14/04 documented as of this encounter
--- OUTSIDE RECORDS SUMMARY | 2025-06-03 08:40 | XMS_ITS | Encounter Summary ---
Author Organization [facility] Address [address] [place] [address] Care Team Providers Care Mapping Supervisor Name Role Phone Tee Espinosa MD Primary Care Provider [phone] Encounter Details Date Type Department Care Team (Late st Contact Info) Description 03/09/2006 Outpatient Historical [facility] [address] [facility] [address] [place] [phone] Tee Yates MD [address] 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
--- OUTSIDE RECORDS SUMMARY | 2025-06-03 08:40 | XMS_ITS | Encounter Summary ---
Author Organization [facility] Address [address] [place] [address] Care Team Providers Care Roll Forger Name Role Phone Tee Espinosa MD Primary Care Provider [phone] Encounter Details Date Type Department Care Team (Late st Contact Info) Description 11/27/2003 Outpatient Historical [facility] [address] [facility] [address] [place] [phone] Tee Yates MD [address] [facility] [address] [place], [place] [phone] Social History Tobacco Use Types Packs/Day Years Used Date Smoking Tobacco: Never Assessed Sex and Gender Information Value Date Recorded Sex Assigned at Not on file Legal Sex Male 3:24 AM PALLIATIVE CARE COORDINATOR Gender Identity Not on file Sexual Orientation Not on file documented as of this encounter Plan of Treatment Not on file documented as of this encounter Visit Diagnoses Not on filedocumented in this encounter Care Teams Roll Forger Relationship Specialty Start Date End Date Tee Espinosa MD [address] [place] [address] PCP - General 04/14/04 documented as of this encounter
--- OUTSIDE RECORDS SUMMARY | 2025-06-03 08:40 | XMS_ITS | Encounter Summary ---
Author Organization [facility] Address [address] [place] [address] Care Team Providers Care Ramp Lead Name Role Phone Tee Espinosa MD Primary Care Provider [phone] Encounter Details Date Type Department Care Team (Late st Contact Info) Description 11/14/2003 Outpatient Historical [facility] [address] [facility] [address] [place] [phone] Tee Yates MD [address] 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
--- OUTSIDE RECORDS SUMMARY | 2025-06-03 08:40 | XMS_ITS | Encounter Summary ---
Author Organization [facility] Address [address] [place] [address] Care Team Providers Care Sail Repair Person Name Role Phone Tee Espinosa MD Primary Care Provider [phone] Encounter Details Date Type Department Care Team (Late st Contact Info) Description 03/08/2005 Outpatient Historical [facility] [address] [facility] [address] [place] [phone] Tee Yates MD [address] 

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
--- OUTSIDE RECORDS SUMMARY | 2025-06-03 08:40 | XMS_ITS | Clinical Summary ---
Author Organization [facility] [address] Address [address] [place] [address] Care Team Providers Care Patient Svcs Mgr Name Role Phone Pedro Bird MD Primary Care Provider Adriane Agee MD Unavailable [phone] Allergies No known active allergies Medications lisinopriL [...] capsule by mouth daily after lunch Active pozifccvrbqg-Xo-ep on-minerals 18-0.4 mg tabletIndications: Vitamin Deficiency Prevention Take 1 tablet by mouth every morning Active vit C,O-Wo-srtkd-lutei n-zeaxan (PreserVision AREDS-2) 250-90-40-1 mg capsuleIndications :eye health Take 1 capsule by mouth 3 (three) times a day Active fexofenadine (HUMPHREY) 180 mg tabletIndications: Seasonal Allergic Rhinitis Take 180 mg by mouth as needed Active ascorbic byzd-ycwzuitd-lxo 1,000 mg powder effervescent in packetIndications: supplement [...] dee on the arms and face from [phone] TONSILLECTOMY/ADENOIDECTO MY CATARACT EXTRACTION, BILATERAL INSERT / [...] on file 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 Gender Identity Not on file Sexual [...] Assessment 11/27/2022 11/27/2021 Covid-19 Vaccine ( season) 2025 04/22/2021, 09/18/2020, 08/26/2020 Influenza Vaccine (#1) 2025 , 05/01/2020, 05/04/2017 Pneumococcal vaccine 65+ Completed 05/01/2020, 07/2015 Zoster Vaccine Completed 10/22/2020, 05/13/2020 Medical Devices Implanted Type Area Director Ambulatory Device Identifier Shelf Expiration Date Model / Serial / Lot Biotronick-Pace maker-01/22/2020 Implanted:01/21 (Quantity not on file) Left: Chest Ayalogic Vascu-Guard 8x.8cm Peripheral Patch Vascular Bovine Pericardium [id number] - [id number] Implanted:Qty: 1 on 11/25/2021 by Adriane Agee MD at [facility] Right: Carotid [employer] Jayla 07/14/2026 [id number] / / [id number] Insurance MDCR HMO REF [id number] [place] [address] MEDICARE ADVANTAGE [facility] MDCR HMO REF Advance Directives For more information, please contact: [phone] * Full Code (Latest Code Status on File) Date Activated Date Inactivated Comments 11/25/2021 9:21 PM 11/27/2021 6:37 PM Care Teams Patient Svcs Mgr Relationship Specialty Start Date End Date Pedro Bird MD PCP - General Family Practice 01/21/20 Adriane Agee MD Surgeon Vascular Surgery 11/13/21
--- OUTSIDE RECORDS SUMMARY | 2025-06-03 08:40 | XMS_ITS | Encounter Summary ---
Author Organization [facility] Address [address] [address] Phone Care Team Providers Care Car Chaser Name Role Phone Pedro Bird MD Primary Care Provider Reason for Visit * Reason Comments Med Refill Encounter Details Date Type Department Care Team (Late st Contact Info) Description 12/22/2021 Refill [facility] Nephrology and Hypertension [address] [address], [address] [place] [address] Levi Garcia MD [address] [facility] [address] [place] [address] Social History Tobacco Use Types Packs/Day Years [...] on filedocumented in this encounter Care Teams Car Chaser Relationship Specialty Start Date End Date Pedro Bird MD [address] [place] [address] PCP - General Internal Medicine 01/16/19 documented as of this encounter
--- OUTSIDE RECORDS SUMMARY | 2025-06-03 08:40 | XMS_ITS | Encounter Summary ---
Author Organization [facility] Address [address] [place] [address] Care Team Providers Care Nurse'S Assistant Name Role Phone Tee Espinosa MD Primary Care Provider [phone] Encounter Details Date Type Department Care Team (Late st Contact Info) Description 11/12/2003 Outpatient Historical [facility] [address] [facility] [address] [facility] [place] [address] Jerry Mendosa MD [address] [facility] [address] [place] [address] Social History Tobacco Use Types Packs/Day Years Used Date Smoking Tobacco: Never Assessed Sex and Gender Information Value Date Recorded Sex Assigned at Not on file Legal Sex Male 3:24 AM PATIENT RELATIONS COORDINATOR Gender Identity Not on file Sexual Orientation Not on file documented as of this encounter Plan of Treatment Not on file documented as of this encounter Visit Diagnoses Not on filedocumented in this encounter Care Teams Nurse'S Assistant Relationship Specialty Start Date End Date Tee Espinosa MD [address] [place] [address] PCP - General 04/14/04 documented as of this encounter
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
--- OUTSIDE RECORDS SUMMARY | 2025-06-03 08:40 | XMS_ITS | Encounter Summary ---
Author Organization [facility] Address [address] [place] [address] Care Team Providers Care Utility Clerk Name Role Phone Tee Espinosa MD Primary Care Provider [phone] Encounter Details Date Type Department Care Team (Late st Contact Info) Description 12/04/2003 Outpatient Historical [facility] [address] [facility] [address] [place] [phone] Tee Yates MD [address] 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
--- OUTSIDE RECORDS SUMMARY | 2025-06-03 08:40 | XMS_ITS | Encounter Summary ---
Author Organization [facility] Address [address] [place] [address] Care Team Providers Care Sewing Pattern Layout Technician Name Role Phone Tee Espinosa MD Primary Care Provider [phone] Encounter Details Date Type Department Care Team (Late st Contact Info) Description 07/06/2005 Outpatient Historical [facility] [address] [phone] Zachary Segundo MD [address] [facility] [address] [place] [address] Social History Tobacco Use Types Packs/Day Years Used Date Smoking Tobacco: Never Assessed Sex and Gender Information Value Date Recorded Sex Assigned at Not on file 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
--- OUTSIDE RECORDS SUMMARY | 2025-06-03 08:40 | XMS_ITS | Encounter Summary ---
Author Organization [facility] Address [address] [place] [address] Care Team Providers Care Lottery Clerk Name Role Phone Tee Espinosa MD Primary Care Provider Encounter Details Date Type Department Care Team (Late st Contact Info) Description 11/11/2004 Outpatient Historical [facility] [address] [facility] [address] [place] [phone] Tee Yates MD [address] 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
--- OUTSIDE RECORDS SUMMARY | 2025-06-03 08:40 | XMS_ITS | Clinical Summary ---
Author Organization [facility] Address [address] 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
--- OUTSIDE RECORDS SUMMARY | 2025-06-03 08:40 | XMS_ITS | Encounter Summary ---
Author Organization [facility] Address 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
--- OUTSIDE RECORDS SUMMARY | 2025-06-03 08:40 | XMS_ITS | Encounter Summary ---
Author Organization [facility] Address 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
--- OUTSIDE RECORDS SUMMARY | 2025-06-03 08:40 | XMS_ITS | Encounter Summary ---
Author Organization [facility] Address [address] [place] [address] Care Team Providers Care Antenna Specialist Name Role Phone Tee Espinosa MD Primary Care Provider [phone] Encounter Details Date Type Department Care Team (Late st Contact Info) Description 01/20/2005 Outpatient Historical [facility] [address] [facility] [address] [place] [phone] Tee Yates MD [address] 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
--- OUTSIDE RECORDS SUMMARY | 2025-06-03 08:40 | XMS_ITS | Encounter Summary ---
Author Organization [employer] Address [address] [place] [address] Care Team Providers Care Wildland Fire Operations Specialist Name Role Phone Tee Espinosa MD Primary Care Provider [phone] Encounter Details Date Type Department Care Team (Late st Contact Info) Description 11/13/2003 Outpatient Historical [facility] Support Serv. (Adt Cardiology-SJ) [address] 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
--- OUTSIDE RECORDS SUMMARY | 2025-06-03 08:40 | XMS_ITS | Encounter Summary ---
Author Organization [facility] Address [address] [place] [address] Care Team Providers Care Patient Biller Name Role Phone Tee Espinosa MD Primary Care Provider [phone] Encounter Details Date Type Department Care Team (Late st Contact Info) Description 11/16/2003 Outpatient Historical [facility] [address] [facility] [address] [facility] [place] [address] Jerry Mendosa MD [address] 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
--- OUTSIDE RECORDS SUMMARY | 2025-06-03 08:40 | XMS_ITS | Encounter Summary ---
Author Organization [facility] Address [address] [place] [address] Care Team Providers Care Mangle Catcher Name Role Phone Tee Espinosa MD Primary Care Provider [phone] Encounter Details Date Type Department Care Team (Late st Contact Info) Description 12/15/2005 Outpatient Historical [facility] [address] [facility] [address] [place] [phone] Tee Yates MD [address] 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
--- OUTSIDE RECORDS SUMMARY | 2025-06-03 08:40 | XMS_ITS | Encounter Summary ---
Author Organization [facility] Address [address] [place] [address] Care Team Providers Care Ice Seller Name Role Phone Tee Espinosa MD Primary Care Provider [phone] Encounter Details Date Type Department Care Team (Late st Contact Info) Description 01/12/2006 Outpatient Historical [facility] [address] [facility] [address] [place] [phone] Tee Yates MD [address] 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
--- OUTSIDE RECORDS SUMMARY | 2025-06-03 08:40 | XMS_ITS | Encounter Summary ---
Author Organization [facility] Address [address] [place] [address] Care Team Providers Care Capital Markets Specialist Name Role Phone Tee Espinosa MD Primary Care Provider [phone] Encounter Details Date Type Department Care Team (Late st Contact Info) Description 03/17/2005 Outpatient Historical [facility] [address] [facility] [address] [place] [phone] Tee Yates MD [address] 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
--- OUTSIDE RECORDS SUMMARY | 2025-06-03 08:41 | XMS_ITS | Encounter Summary ---
Author Organization [employer] Address 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
--- OUTSIDE RECORDS SUMMARY | 2025-06-03 08:41 | XMS_ITS | Encounter Summary ---
Author Organization [employer] Address 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 Gender Identity Not on file Sexual Orientation Not on file documented as of this encounter Plan of Treatment Not on file documented as of this encounter Procedures Procedure Name Priority Date/Time Associated Diagnosis Comments HEMOGLOBIN AND HEMATOCRIT Routine 08/04/2004 11:02 AM ELECTRICAL DRAFTER documented in this encounter Results * HEMOGLOBIN AND HEMATOCRIT (08/04/2004 11:02 AM ELECTRICAL DRAFTER) HEMOGLOBIN 15.9 13.6 - 16.5 g/dL INTERFACE SYSTEM HEMATOCRIT 45.7 40.0 - 48.0 % INTERFACE SYSTEM 08/04/2004 11:0 2 AM ELECTRICAL DRAFTER us Tee Yates MD HEMATOLOGY ORDERABLES Final Res ult INTERFACE SYSTEM Refer to clinic/hospital department documented in this encounter Visit Diagnoses Diagnosis Microstomia- Primary documented in this encounter Care Teams Home Service Consultant Relationship Specialty Start Date End Date Tee Espinosa MD [address] [place] [address] PCP - General 04/14/04 documented as of this encounter
--- OUTSIDE RECORDS SUMMARY | 2025-06-03 08:41 | XMS_ITS | Encounter Summary ---
Author Organization [facility] Address [address] [place] [address] Care Team Providers Care Spiritual Care Coordinator Name Role Phone Tee Espinosa MD Primary Care Provider [phone] Encounter Details Date Type Department Care Team (Late st Contact Info) Description 04/17/2004 Outpatient Historical [facility] [address] [facility] [address] [place] [phone] Tee Yates MD [address] 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
--- OUTSIDE RECORDS SUMMARY | 2025-06-03 08:41 | XMS_ITS | Encounter Summary ---
Author Organization [facility] Address [address] [place] [address] Care Team Providers Care Dinkey Press Operator Name Role Phone Tee Espinosa MD Primary Care Provider [phone] Encounter Details Date Type Department Care Team (Late st Contact Info) Description 08/26/2004 Outpatient Historical [facility] [address] [phone] Zachary Segundo MD [address] [facility] [address] [place] [address] Social History Tobacco Use Types Packs/Day Years Used Date Smoking Tobacco: Never Assessed Sex and Gender Information Value Date Recorded Sex Assigned at Not on file 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
--- OUTSIDE RECORDS SUMMARY | 2025-06-03 08:41 | XMS_ITS | Encounter Summary ---
Author Organization [facility] Address [address] [place] [address] Care Team Providers Care Textile Dyer Name Role Phone Tee Espinosa MD Primary Care Provider [phone] Encounter Details Date Type Department Care Team (Late st Contact Info) Description 05/06/2004 Outpatient Historical [facility] [address] [facility] [address] [place] [phone] Tee Yates MD [address] 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
--- OUTSIDE RECORDS SUMMARY | 2025-06-03 08:41 | XMS_ITS | Encounter Summary ---
Author Organization [facility] Address [address] [place] [address] Care Team Providers Care Credit And Collection Manager Name Role Phone Tee Espinosa MD Primary Care Provider [phone] Encounter Details Date Type Department Care Team (Late st Contact Info) Description 10/27/2004 Outpatient Historical [facility] [address] [facility] [address] [place] [phone] Tee Yates MD [address] [facility] [address] [place], [place] [phone] Social History Tobacco Use Types Packs/Day Years Used Date Smoking Tobacco: Never Assessed Sex and Gender Information Value Date Recorded Sex Assigned at Not on file Legal Sex Male 3:[address] SUPERVISOR Gender Identity Not on file Sexual Orientation Not on file documented as of this encounter Plan of Treatment Not on file documented as of this encounter Visit Diagnoses Not on filedocumented in this encounter Care Teams Credit And Collection Manager Relationship Specialty Start Date End Date Tee Espinosa MD [place] [address] PCP - General 04/14/04 documented as of this encounter
--- OUTSIDE RECORDS SUMMARY | 2025-06-03 08:41 | XMS_ITS | Encounter Summary ---
Author Organization [facility] Address [address] [place] [address] Care Team Providers Care Disability Liaison Officer Name Role Phone Tee Espinosa MD Primary Care Provider [phone] Encounter Details Date Type Department Care Team (Late st Contact Info) Description 08/04/2004 Outpatient Historical [facility] [address] [facility] [address] [place] [phone] Tee Yates MD [address] 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
--- OUTSIDE RECORDS SUMMARY | 2025-06-03 08:41 | XMS_ITS | Encounter Summary ---
Author Organization [employer] Address [address] [place] [address] Care Team Providers Care Corn Chip Maker Name Role Phone Tee Espinosa MD Primary Care Provider [phone] Encounter Details Date Type Department Care Team (Late st Contact Info) Description 10/21/2004 Outpatient Historical [facility] Support Serv. (Adt Cardiology-SJ) [address] 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
--- OUTSIDE RECORDS SUMMARY | 2025-06-03 08:41 | XMS_ITS | Encounter Summary ---
Author Organization [facility] Address [address] [place] [address] Care Team Providers Care Folded Cloth Taper Name Role Phone Tee Espinosa MD Primary Care Provider [phone] Encounter Details Date Type Department Care Team (Late st Contact Info) Description 08/12/2004 Outpatient Historical [facility] [address] [facility] [address] [phone] Zachary Segundo MD [address] [facility] [address] [place] [address] Social History Tobacco Use Types Packs/Day Years Used Date Smoking Tobacco: Never Assessed Sex and Gender Information Value Date Recorded Sex Assigned at Not on file 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
--- OUTSIDE RECORDS SUMMARY | 2025-06-03 08:41 | XMS_ITS | Encounter Summary ---
Author Organization [facility] Address [address] [place] [address] Care Team Providers Care Manganese Breaker Name Role Phone Tee Espinosa MD Primary Care Provider [phone] Encounter Details Date Type Department Care Team (Late st Contact Info) Description 08/07/2004 Outpatient Historical [facility] [address] [facility] [address] [phone] Zachary Segundo MD [address] [facility] [address] [place] [address] Social History Tobacco Use Types Packs/Day Years Used Date Smoking Tobacco: Never Assessed Sex and Gender Information Value Date Recorded Sex Assigned at Not on file 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
--- OUTSIDE RECORDS SUMMARY | 2025-06-03 08:41 | XMS_ITS | Encounter Summary ---
Author Organization [facility] Address [address] [place] [address] Care Team Providers Care Certified Family Mediator Name Role Phone Tee Espinosa MD Primary Care Provider [phone] Encounter Details Date Type Department Care Team (Late st Contact Info) Description 09/30/2004 Outpatient Historical [facility] [address] [facility] [address] [place] [phone] Tee Yates MD [address] 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
--- OUTSIDE RECORDS SUMMARY | 2025-06-03 08:41 | XMS_ITS | Encounter Summary ---
Author Organization [facility] Address [address] [place] [address] Care Team Providers Care Wincher Name Role Phone Tee Espinosa MD Primary Care Provider [phone] Encounter Details Date Type Department Care Team (Late st Contact Info) Description 09/16/2004 Outpatient Historical [facility] [address] [facility] [address] [place] [phone] Tee Yates MD [address] 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
--- OUTSIDE RECORDS SUMMARY | 2025-06-03 08:41 | XMS_ITS | Encounter Summary ---
Author Organization [facility] Address [address] [place] [address] Care Team Providers Care Undercover Cop Name Role Phone Tee Espinosa MD Primary Care Provider [phone] Encounter Details Date Type Department Care Team (Late st Contact Info) Description 10/30/2004 Outpatient Historical [facility] [address] [facility] [address] [place] [phone] Tee Yates MD [address] 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
--- OUTSIDE RECORDS SUMMARY | 2025-06-03 08:41 | XMS_ITS | Encounter Summary ---
Author Organization [facility] Address [address] [place] [address] Care Team Providers Care Cold Meat Cook Name Role Phone Tee Espinosa MD Primary Care Provider [phone] Encounter Details Date Type Department Care Team (Late st Contact Info) Description 08/04/2004 Outpatient Historical [facility] [address] [facility] [address] [place] [phone] Tee Yates MD [address] 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
--- OUTSIDE RECORDS SUMMARY | 2025-06-03 08:41 | XMS_ITS | Encounter Summary ---
Author Organization [facility] Address [address] [place] [address] Care Team Providers Care Performance Reporter Name Role Phone Tee Espinosa MD Primary Care Provider [phone] Encounter Details Date Type Department Care Team (Late st Contact Info) Description 12/09/[address] [facility] [id number] [facility] [address] [place] [phone] Tee Yates MD [address] 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
--- OUTSIDE RECORDS SUMMARY | 2025-06-03 08:41 | XMS_ITS | Encounter Summary ---
Author Organization [facility] Address [address] [place] [address] Care Team Providers Care Barrel Liner Name Role Phone Tee Espinosa MD Primary Care Provider [phone] Encounter Details Date Type Department Care Team (Late st Contact Info) Description 06/17/2004 Outpatient Historical [facility] [id number] [facility] [address] [place] [phone] Tee Yates MD [address] 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
--- OUTSIDE RECORDS SUMMARY | 2025-06-03 08:41 | XMS_ITS | Encounter Summary ---
Author Organization [facility] Address [address] [place] [address] Care Team Providers Care It Account Manager Name Role Phone Tee Espinosa MD Primary Care Provider Encounter Details Date Type Department Care Team (Late st Contact Info) Description 04/21/2004 Outpatient Historical [facility] [id number] [facility] [address] [place] [phone] Tee Yates MD [address] 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
[2025-06-14 02:07] LABS: Pneumo Ab Type 17 (17F)* 4.4 ug/mL (>1.3); Pneumo Ab Type 2* 5.8 ug/mL (>1.3); Pneumo Ab Type 20* 7.1 ug/mL (>1.3); Pneumo Ab Type 22 (22F)* 2.8 ug/mL (>1.3); Pneumo Ab Type 34 (10A)* 9.7 ug/mL (>1.3); Pneumo Ab Type 43 (11A)* 1.2 ug/mL (>1.3); Pneumo Ab Type 5* <0.1 ug/mL (>1.3); Pneumo Ab Type 54 (15B)* 31.8 ug/mL (>1.3); Pneumo Ab Type 70 (33F)* 10.2 ug/mL (>1.3)
== END 2025-06-03 08:29 | disposition home or self-care (01) ==
PROVIDERS: PCP Family Medicine; Visit Provider Otolaryngology Otolaryngology/Facial Plastic Surgery
DX: J32.9 Chronic sinusitis, unspecified (principal)
CPT/HCPCS: 86581

== ENCOUNTER 2025-06-20 07:32 | Outpatient (CLI) | payer MEDICARE, SELFPAY | END 2025-06-20 07:33 | disposition home or self-care (01) | LOC: ANHAUDIO 07:33 | PROVIDERS: PCP Family Medicine; Visit Provider Otolaryngology Otolaryngology/Facial Plastic Surgery | DX: H90.3 Sensorineural hearing loss, bilateral (principal) | CPT/HCPCS: 92557; 92567 ==